=== PATIENT | male | born 1945 | race Caucasian/White ===

== ENCOUNTER 2016-12-08 10:59 | Emergency (ER) | payer OTHER ==
[~2016-12-08] VITALS: Ht 167.6 cm; Wt 128.0 kg
[~2016-12-08 10:59] MED LIST: ASPI81TA28 PO; ATOR-26 PO; GARL1CAP PO; GLUC500C4 PO; LISI-729 PO; OMEG10007 PO; PRLSR20 PO; TPRSR/50 PO
[2016-12-08 11:12] VITALS: Ht 167.6 cm; Wt 128.0 kg
--- NOTE | 2016-12-08 11:40 | EMERGENCY ROOM VISIT NOTE ---
ED Visit Note First contact with patient: 11:15 CHIEF COMPLAINT: right knee pain after fall HISTORY OF PRESENT ILLNESS: This 70-year-old male patient presents to the emergency department 1 day after sustaining an injury to the right knee after falling, while getting into an ambulance yesterday. 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 Patient states the leg rotated externally, and the lateral/anterior aspect of the knee hit the van. Patient denies fall, head injury, loss of consciousness. He was not dizzy or lightheaded at the time of the fall, he states he simply lost his balance. The patient denies any other injuries besides their knee. The patient denies swelling or bruising. There is pain throughout the entire knee. They rate the pain as constant, like it wants to give out on him while he is walking and 8/10. The patient states they are able to walk on it, however this does cause increased pain. No numbness or tingling. No previous injuries to this knee. No ankle, foot or hip pain. Patient does report history of osteoarthritis in the right knee. He states last x-rays were completed approximately 2 years ago he believes. REVIEW OF SYSTEMS: A 6 system review of systems was completed with positives and pertinent negatives listed in the HPI. ALLERGIES: None MEDICATIONS: Omeprazole, garlic oil, glucosamine, fish oil, lisinopril, aspirin , metoprolol, atorvastatin PMH: Acid reflux, arthritis, hypertension, hyperlipidemia SOCIAL HISTORY: He was locally with his family. He denies drug, alcohol, tobacco use. PHYSICAL EXAM: Vital Signs: Reviewed Nurse's notes, vital signs stable. GENERAL : 70-year-old male, no acute distress, but appears in pain, well-developed, well -nourished. MENTAL STATUS: Alert, oriented to person place and time, and cooperative. MUSCULOSKELETAL: The right knee is mildly swollen. There is no ecchymosis. There is no joint effusion present. The patient is tender anteriorly, and laterally. There is no joint line tenderness. The patella does appropriately subluxate. Range of motion is full. Strength of the quads and hamstrings is 5/5. Chrissy's is negative. Albert's and Anterior Drawer tests are negative. There is no pain or laxity with varus and valgus stressing. The foot and toes are warm and well-perfused. Dorsalis pedis pulse 2+. Sensation to pain and light touch is intact. Capillary refill less than 2 seconds. EMERGENCY DEPARTMENT COURSE: I examined the patient. X-rays of the right knee were reviewed by myself and read by radiology and reveal DISCUSSION: Moderate degenerative change all major joint compartments. No acute bony abnormality. Cortical margins are intact. Mild reactive osteophytic change. There is no evidence for soft tissue swelling. IMPRESSION: Moderate degenerative change all major joint compartments. No acute bony abnormality. Discussion with patient and family member regarding negative xray. Pt. was seen and evaluated by Dr. Amezcua. Plan for patient to get a walker for assistance around the house and will follow-up with orthopedics next week. Pt. is in agreement of this plan. The patient was discharged home in good condition. DIAGNOSIS: Right knee contusion DIFFERENTIAL DIAGNOSIS: Anterior cruciate ligament, PCL, LCL, MCL sprain; meniscus injury, patellar fracture, tibial plateau fracture, fibular head fracture, osteoarthritis, others DISCHARGE INSTRUCTIONS: Ice and elevate knee for swelling and pain. Use a cane - minimal weight on foot. Ibuprofen 600 mg and Tylenol 1000 mg every 6 hrs for pain. Follow-up with [facility] for further evaluation and treatment - call for appointment. Problem List Medical Problems: (1) GERD (gastroesophageal reflux disease) Status: Chronic (2) Hypercholesteremia Status: Chronic (3) Hypertension Status: Chronic Current/Historical Medications Scheduled Aspirin (Aspirin Ec), 81 MG PO DAILY Atorvastatin (Lipitor), 80 MG PO DAILY Fish Oil (Donie-3), 1 CAP PO BID Garlic (Garlic Oil 500), 500 MG PO BID Glucosamine Sulfate (Glucosamine), 500 MG PO QAM Lisinopril (Zestril), 5 MG PO DAILY Metoprolol Succinate (Metoprolol Succinate ER), 50 MG PO DAILY Omeprazole (Prilosec), 20 MG PO DAILY Allergies Coded Allergies: No Known Allergies (Unverified , 06/04/14) Vital Signs Date Time Temp Pulse Resp B/P (MAP) Pulse Ox O2 Delivery O2 Flow Rate FiO2 12/08/16 12:58 36.7 57 18 146/111 95 12/08/16 11:12 36.7 59 20 162/90 95 Room Air Departure Information Impression Primary Impression: Contusion of right knee Additional Impression: Osteoarthritis of knee Dispostion Home / Self-Care Condition GOOD Referrals Winston Bee M.D. (PCP) Richard Loyola M.D. Patient Instructions My [facility] Additional Instructions You have been treated in the Emergency Department for Knee Pain. For pain control, you can use the following [id number] medicines (if >12 yo): - Regular strength (325mg/tab) Tylenol (acetaminophen) 2 tabs every 4-6 hours as needed. Do not exceed 12 tablets in a 24 hour period. Avoid taking more than 4 grams (4000 mg) of Tylenol per day. This includes any other sources of acetaminophen you may take on a regular basis. - Regular strength (200 mg/tab) Advil (ibuprofen) 1-2 tabs every 4-6 hours as needed. Do not exceed a dose of 3200 mg per day. If this is a recent injury (<24 hrs), ice can be applied to the area of pain for the first 3 days to help decrease pain and inflammation. Ice massages can be performed by freezing water in a paper cup, peeling back the cup to expose the ice and then massaging over the affected area. You have been provided the number for an Orthopaedic Surgeon. You should call this number as soon as possible to establish a follow-up visit from today's Emergency Department visit. Use a cane as we discussed for help with balance. Return to the Emergency Department if your current symptoms worsen despite treatment course outlined above. Problem Qualifiers Primary Impression: Contusion of right knee Encounter type: initial encounter Qualified Codes: S80.01XA - Contusion of right knee, initial encounter Additional Impression: Osteoarthritis of knee Osteoarthritis type: primary Laterality: right Qualified Codes: M17.11 - Unilateral primary osteoarthritis, right knee
--- NOTE | 2016-12-08 12:01 | DIAGNOSTIC IMAGING REPORT ---
RIGHT KNEE 3 VIEWS CLINICAL HISTORY: right knee pain s/p fall Right trauma. Pain. COMPARISON: None. DISCUSSION: Moderate degenerative change all major joint compartments. No acute bony abnormality. Cortical margins are intact. Mild reactive osteophytic change. There is no evidence for soft tissue swelling. IMPRESSION: Moderate degenerative change all major joint compartments. No acute bony abnormality. Electronically signed by: Jony Henriquez M.D. 12/08/2016 11:59 AM Dictated Date/Time: 12/08/2016 11:59 AM
[2016-12-08 12:58] VITALS: BP 146/111; PULSE 57; TEMP 36.7; O2SAT 95
--- NOTE | 2016-12-08 18:19 | EMERGENCY ROOM VISIT NOTE ---
ED Visit Note First contact with patient: 11:15 I have personally evaluated this patient examined her and reviewed the pertinent labs and data. I have discussed the case with Lisa Camejo, the physician laboratory chemical assistant and agree with the plan. Please refer to the PA note. This patient comes in after bumping his knee. On my exam, it is not red or warm or swollen is full range of motion. He is neurologically and neurovascularly intact. X-rays show degenerative changes he is feeling better when like to go home. He use a cane and pain medications he is to return if any new problems or concerns.
== END 2016-12-08 12:59 | disposition home or self-care (01) ==
LOC: C.EDB 11:00 → C.EDD 12:59
DX: S80.01XA Contusion of right knee, initial encounter (principal); M17.11 Unilateral primary osteoarthritis, right knee; W01.0XXA Fall on same level from slipping, tripping and stumbling without subsequent striking against object, initial encounter; Y92.89 Other specified places as the place of occurrence of the external cause; K21.9 Gastro-esophageal reflux disease without esophagitis; I10 Essential (primary) hypertension; E78.00 Pure hypercholesterolemia, unspecified; E78.5 Hyperlipidemia, unspecified; Z79.82 Long term (current) use of aspirin; Z79.899 Other long term (current) drug therapy

== ENCOUNTER 2017-07-20 08:06 | Emergency (ER) | payer OTHER ==
[~2017-07-20] VITALS: Ht 167.6 cm; Wt 127.0 kg
[2017-07-20 08:09] VITALS: TEMP 36.8; Ht 167.6 cm; Wt 127.0 kg
--- NOTE | 2017-07-20 09:00 | DIAGNOSTIC IMAGING REPORT ---
L FOOT MIN 3 VIEWS ROUTINE CLINICAL HISTORY: Left foot pain COMPARISON: None. DISCUSSION: No acute fractures or dislocations are visualized. There are moderate arthritic changes present the level the first metatarsal phalangeal joint. There is associated soft tissue swelling and subtle calcification within the adjacent soft tissues. Clinical correlation in regards to the possibility of gout is recommended. IMPRESSION: 1. No acute fractures 2. Moderate arthritic changes at the level the first metatarsal phalangeal joint. The soft tissue swelling and adjacent soft tissue calcification, raises the possibility of gout. Electronically signed by: Travon Recio M.D. 07/20/2017 8:59 AM Dictated Date/Time: 07/20/2017 8:57 AM
--- NOTE | 2017-07-20 09:27 | EMERGENCY ROOM VISIT NOTE ---
ED Visit Note First contact with patient: 08:14 CHIEF COMPLAINT: Left foot injury 3 days ago HISTORY OF PRESENT ILLNESS: Patient is a 71-year-old white male who presents to the emergency department for evaluation of left foot pain. He reports that a roughly 20 pound motor fell off of a table, and lives in the top of his left foot. He was wearing a sneaker at the time of the injury. There was no audible snap or crack at that time. Patient complains of pain, swelling and bruising on the dorsomedial aspect of his left foot. He has tried to ice and elevate, and has been rubbing alcohol and BenGay on the area. He did not take any medication for pain. He rates his discomfort and 8/10. REVIEW OF SYSTEMS: Review of systems as per HPI. All other systems reviewed were negative. At least 6 systems reviewed. PMH: Electronic medical records are reviewed and summarized as above/below. See Problem List. SOCIAL HISTORY: Patient lives at home. PHYSICAL EXAM: Vital Signs: Reviewed Nurse's notes. CONSTITUTIONAL: Patient is a pleasant, well-appearing 71-year-old white male who is awake and alert and in no acute distress. MUSCULOSKELETAL: Examination of the left foot note erythema over the first MTP region, with some soft tissue swelling noted into the dorsum of the foot. He is tender over the first metatarsal and the first MTP. Skin is erythematous, but intact. There is no increased warmth or induration. No cellulitic changes. He can wiggle and move his toes normally. EMERGENCY DEPARTMENT COURSE: X-rays of the left foot were obtained and were negative for acute fracture. Findings concerning for a gouty arthropathy of the first MTP were noted. The patient does report a history of gout. He has chronic findings on exam consistent with gout, but his injury is more acute due to the direct trauma. He does not have any evidence for fracture. No dislocation. There is no evidence for cellulitis. He is tolerating his shoe well. Conservative care measures were discussed. He is discharged home in good condition. Medication reconciliation: I attest that I have personally reviewed the patient' s current medication list. Blood pressure screening : Patient was found to have normal blood pressure on screening and does not require follow-up. L FOOT MIN 3 VIEWS ROUTINE CLINICAL HISTORY: Left foot pain COMPARISON: None. DISCUSSION: No acute fractures or dislocations are visualized. There are moderate arthritic changes present the level the first metatarsal phalangeal joint. There is associated soft tissue swelling and subtle calcification within the adjacent soft tissues. Clinical correlation in regards to the possibility of gout is recommended. IMPRESSION: 1. No acute fractures 2. Moderate arthritic changes at the level the first metatarsal phalangeal joint. The soft tissue swelling and adjacent soft tissue calcification, raises the possibility of gout. Problem List Medical Problems: (1) Chest pain Status: Resolved (2) Contusion of right knee Status: Resolved (3) Coronary Atherosclerosis Of [place] Coronary Vessel Status: Chronic (4) GERD (gastroesophageal reflux disease) Status: Chronic (5) Gout Status: Chronic (6) Hypercholesteremia Status: Chronic (7) Hypertension Status: Chronic (8) Lightheadedness Status: Resolved (9) Osteoarthritis of knee Status: Chronic Surgical Problems: (1) H/O heart bypass surgery Status: Resolved Current/Historical Medications Scheduled Aspirin (Aspirin Ec), 81 MG PO DAILY Atorvastatin (Lipitor), 80 MG PO DAILY Fish Oil ([place]-3), 1 CAP PO BID Garlic (Garlic Oil 500), 500 MG PO BID Glucosamine Sulfate (Glucosamine), 500 MG PO QAM Lisinopril (Zestril), 5 MG PO DAILY Metoprolol Succinate (Metoprolol Succinate ER), 50 MG PO DAILY Omeprazole (Prilosec), 20 MG PO DAILY Allergies Coded Allergies: No Known Allergies (Unverified , 07/20/17) Vital Signs Date Time Temp Pulse Resp B/P (MAP) Pulse Ox O2 Delivery O2 Flow Rate FiO2 07/20/17 09:37 56 20 122/71 98 07/20/17 08:09 36.8 67 20 142/73 94 Departure Information Impression Primary Impression: Contusion of left foot Referrals Jose M Nguyen M.D. (PCP) Patient Instructions My [facility] Additional Instructions Ibuprofen(Motrin, Advil) may be used for fever or pain. Use 600mg every six hours as needed. Take with food. Avoid using more than 2400mg in a 24 hour period. Do not use 2400mg per day for more than three consecutive days without physician direction. Prolonged inappropriate use can lead to stomach upset or ulcers. This medication can be taken if you need to drive, work, or perform activities which may be dangerous when taking narcotic pain medication. (AND/OR) Acetaminophen(Tylenol) may be used for fever or pain. Use 1000mg every six hours as needed. Avoid using more than 3000mg in a 24 hour period. This medication can be taken if you need to drive, work, or perform activities which may be dangerous when taking narcotic pain medication. Ice compresses for 20 minutes at a time four times daily for 2-3 days. Rest and elevate your injury. Continue current medications. Return to the ER immediately for any numbness, tingling, severe pain, extreme swelling in the extremity or as needed. Followup with your family doctor or orthopedic surgery if no improvement in 5-7 days.
[2017-07-20 09:37] VITALS: BP 122/71; PULSE 56; O2SAT 98
== END 2017-07-20 09:45 | disposition home or self-care (01) ==
LOC: C.EDB 08:07 → C.EDA 09:45
DX: S90.32XA Contusion of left foot, initial encounter (principal); W22.8XXA Striking against or struck by other objects, initial encounter; Y92.9 Unspecified place or not applicable; I25.10 Atherosclerotic heart disease of native coronary artery without angina pectoris; K21.9 Gastro-esophageal reflux disease without esophagitis; E78.00 Pure hypercholesterolemia, unspecified; I10 Essential (primary) hypertension; M17.9 Osteoarthritis of knee, unspecified; Z79.82 Long term (current) use of aspirin; Z79.899 Other long term (current) drug therapy

== ENCOUNTER 2022-03-03 13:05 | Inpatient (IN) ==
--- NOTE | 2022-03-03 14:27 | Emergency Department Note ---
History of Present Illness General Chief complaint: Illness Stated complaint: REF BY FOR BLOOD CLOT/ NO SYMPTOMS Time Seen by Provider: 03/03/22 14:10 Source: patient History of Present Illness Provider complaint: Blood clot in the lungs Onset (ago): day(s) Location: chest and left Pain Consistency: + constant Current Pain Intensity: 0 Quality: + other (Blood clot in lungs without symptoms.) Relieved By: + none Exacerbated By: + none Associated symptoms: + other (Right calf pain for 3 days); no chest pain, no cough, no fever/chills, no headaches, no nausea/vomiting or no shortness of breath This is a 76-year-old male with a history of abdominal aortic aneurysm sent here by vascular surgery for an abnormal CT performed yesterday at [facility]. The patient had an annual surveillance CT of the abdomen and chest and was noted to have a clot in his lungs on the left side. He was called today and told to go to the emergency department if he develops shortness of breath. He was then called shortly thereafter by his business machine mechanic who told him to go to the ED right away. He has no symptoms consistent with a PE. He states he has no upper back pain, chest pain or shortness of breath. He does note that he has had right calf pain for about 3 days. He describes this as an ache. He thinks that he may just have a varicose vein. He denies any abdominal pain, vomiting or diarrhea. He has no fever, cough or cold symptoms or urinary symptoms. He was told that his aneurysm is getting bigger and that he will require surgery. He denies any abdominal or lower back pain. Home Medications Medication Instructions Recorded Confirmed Type lisinopril 5 mg tablet 5 mg PO QAM 06/25/19 03/03/22 History metoprolol succinate 50 mg 25 mg PO QAM 06/25/19 03/03/22 History tablet,extended release 24 hr omeprazole 20 mg capsule,delayed 20 mg PO QAM 06/25/19 03/03/22 History release rosuvastatin 40 mg tablet 40 mg PO 06/25/19 03/03/22 History garlic 500 mg capsule 500 mg PO BID 12/23/19 03/03/22 History glucosamine sulfate 500 mg capsule 500 mg PO 12/23/19 03/03/22 History omega 7-xst-ezi-fish oil 1,000 mg 1 cap PO BID 12/23/19 03/03/22 History (120 mg-180 mg) capsule (Fish Oil) acetaminophen 500 mg tablet 500 mg PO QID PRN Pain 05/04/21 03/03/22 History aspirin 81 mg chewable tablet 81 mg PO DAILY 05/04/21 03/03/22 History Allergies Allergy/AdvReac Type Severity Reaction Status Date / Time No Known Allergies Allergy Unverified 05/04/21 13:31 Past Med/Surg History Medical History (Updated 03/03/22 @ 17:58 by Spencer Mueller MD) GERD (gastroesophageal reflux disease) Hypercholesteremia Hypertension Osteoarthritis of knee Surgical History H/O heart bypass surgery Social History Smoking Status: Never smoker Tobacco Type: Cigarettes Preferred Language: Serbian marital status: Current Living Situation: Family Feels Safe at Home: Yes Review of Systems See HPI for pertinent positives & negatives. and A total of 10 systems reviewed and were otherwise negative Physical Exam Vital Signs Vital Signs - 24 hr 03/03/22 13:07 03/03/22 17:06 Temperature 36.7 C Temperature Source Temporal Artery Scan Pulse Rate 67 Respiratory Rate 20 18 Respiratory Effort / Characteristics Non-Labored Spontaneous Respiratory Depth Normal Respiratory Pattern Regular Blood Pressure 144/71 H Blood Pressure [Right Arm] 128/72 Blood Pressure Mean 95 Blood Pressure Mean [Right Arm] 90 Blood Pressure Position [Right Arm] Lying Pulse Oximetry 95 97 Oxygen Delivery Method Room Air Room Air Sepsis Recent Fever Within 48 Hours No Sepsis New/Unexplained Change in Mental Status N/A Sepsis Action Taken by Nursing No Action Required Constitutional: Vital signs reviewed. Eyes: Pupils are equal round reactive to light. Conjunctiva are noninjected. ENT: Pharynx is clear without erythema or exudate. Mucous membranes are moist. Neck supple without meningeal signs. Respiratory: Clear to auscultation bilaterally. Breath sounds are equal bilaterally. Cardiovascular: Regular rate and rhythm. No rubs or gallops. GI: Soft, nondistended and nontender. Bowel sounds are present. Musculoskeletal: Dorsalis pedis pulse palpable in both feet. Pedal edema bilaterally. Tenderness to the right calf. No palpable cord. Integumentary: No cyanosis. or jaundice. Neurological: The patient is awake and alert. Very hard of hearing. Psychiatric: Normal affect. Not anxious appearing. Medical Decision Making Differential Diagnosis Pulmonary embolism, DVT, malignancy, aortic aneurysm, right-sided heart strain Medical Records Attestation: I reviewed the patient's medical records. Home Medications Current Medication List: was personally reviewed by me Laboratory Data Attestation: I reviewed the patient's lab results. Result diagrams: 03/03/22 13:45 03/03/22 13:45 Lab Results 03/03/22 03/03/22 03/03/22 Range/Units 13:45 13:45 13:45 WBC (4.8-10.8) K/ul RBC (4.63-6.08) M/uL Hgb (14.0-18.0) g/dl Hct (40.1-51.0) % MCV (80.0-100.0) fL MCH (25.0-34.0) pg MCHC (32.0-36.0) g/dL RDW Std Deviation (36.4-46.3) fL RDW Coeff of Mirela (11.5-14.5) % Plt Count (130-400) K/uL MPV (9.4-12.4) fL Immature Gran % (Auto) % Neut % (Auto) % Lymph % (Auto) % [place] % (Auto) % Eos % (Auto) % Baso % (Auto) % Neut # (Auto) (1.4-6.5) K/uL Lymph # (Auto) (1.2-3.4) K/uL [place] # (Auto) (0.24-0.82) K/uL Eos # (Auto) (0-0.50) K/uL Baso # (Auto) (0-0.2) K/uL Immature Gran # (Auto) (0.00-0.02) K/uL PT 10.5 (9.0-12.0) Seconds INR 1.0 (0.9-1.1) APTT 24.2 (21.0-31.0) Seconds PTT Ratio 0.9 D-Dimer 2240 H* (0-500) ug/L FEU Sodium 138 (136-145) mmol/L Potassium 4.4 (3.5-5.1) mmol/L Chloride 104 (98-107) mmol/L Carbon Dioxide 28 (21-32) mmol/L Anion Gap 6 (3-11) BUN 24 H (6-23) mg/dl Creatinine 1.49 H (0.6-1.4) mg/dl Est Cr Clr Drug Dosing 52.6 ml/min Est GFR ( Amer) 51.7 ml/min Est GFR (Non-Af Amer) 44.6 ml/min BUN/Creatinine Ratio 16.1 (10-20) Glucose 106 H (70-99(Fasting)) mg/dl Calcium 8.8 (8.5-10.1) mg/dl Total Bilirubin 0.5 (0.2-1.0) mg/dl AST 29 (13-39) U/L ALT 20 (7-52) U/L Alkaline Phosphatase 48 (34-104) U/L Troponin I High Sens 6.8 (0-20) pg/ml Total Protein 6.4 (6.0-8.3) gm/dl Albumin 3.9 (3.4-5.0) gm/dl Globulin 2.5 (2.5-4.0) gm/dl Albumin/Globulin Ratio 1.6 (0.9-2) 03/03/22 Range/Units 13:45 WBC 6.85 (4.8-10.8) K/ul RBC 4.08 L (4.63-6.08) M/uL Hgb 13.3 L (14.0-18.0) g/dl Hct 39.2 L (40.1-51.0) % MCV 96.1 (80.0-100.0) fL MCH 32.6 (25.0-34.0) pg MCHC 33.9 (32.0-36.0) g/dL RDW Std Deviation 45.5 (36.4-46.3) fL RDW Coeff of Mirela 12.9 (11.5-14.5) % Plt Count 144 (130-400) K/uL MPV 9.5 (9.4-12.4) fL Immature Gran % (Auto) 0.1 % Neut % (Auto) 67.6 % Lymph % (Auto) 19.9 % [place] % (Auto) 8.3 % Eos % (Auto) 3.2 % Baso % (Auto) 0.9 % Neut # (Auto) 4.63 (1.4-6.5) K/uL Lymph # (Auto) 1.36 (1.2-3.4) K/uL [place] # (Auto) 0.57 (0.24-0.82) K/uL Eos # (Auto) 0.22 (0-0.50) K/uL Baso # (Auto) 0.06 (0-0.2) K/uL Immature Gran # (Auto) 0.01 (0.00-0.02) K/uL PT (9.0-12.0) Seconds INR (0.9-1.1) APTT (21.0-31.0) Seconds PTT Ratio D-Dimer (0-500) ug/L FEU Sodium (136-145) mmol/L Potassium (3.5-5.1) mmol/L Chloride (98-107) mmol/L Carbon Dioxide (21-32) mmol/L Anion Gap (3-11) BUN (6-23) mg/dl Creatinine (0.6-1.4) mg/dl Est Cr Clr Drug Dosing ml/min Est GFR ( Amer) ml/min Est GFR (Non-Af Amer) ml/min BUN/Creatinine Ratio (10-20) Glucose (70-99(Fasting)) mg/dl Calcium (8.5-10.1) mg/dl Total Bilirubin (0.2-1.0) mg/dl AST (13-39) U/L ALT (7-52) U/L Alkaline Phosphatase (34-104) U/L Troponin I High Sens (0-20) pg/ml Total Protein (6.0-8.3) gm/dl Albumin (3.4-5.0) gm/dl Globulin (2.5-4.0) gm/dl Albumin/Globulin Ratio (0.9-2) Imaging Data Radiologist's Impression: Venous Doppler Study 03/03/22 14:21 BILATERAL LOWER EXTREMITY VENOUS DOPPLER HISTORY: PE on CT eval with pain in leg eval for dvt COMPARISON STUDY: None. FINDINGS: There is normal compressibility, flow, and augmentation within the bilateral lower extremity deep venous systems. IMPRESSION: No DVT within the right or left lower extremity. ACT 112: Negative or not required by law. Electronically signed by: Gabe Olsen M.D. 03/03/2022 4:24 PM ECG Data Attestation: I personally reviewed and interpreted this ECG as follows: Indication: + other (Pulmonary emboli on CAT scan eval for right heart strain) Rate (beats per minute): 67 Rhythm: + normal sinus ECG Intervals/blocks: + Right Bundle branch block ECG Findings: no PVCs Comparison ECG Date: from (May 04, 2021) Change: the following changes noted (Right bundle branch block today. P reviously was incomplete right bundle branch block) MDM Narrative I did evaluate the patient as noted above. He is sent here by his vascular surgeon for findings on CT performed yesterday for surveillance of his abdominal aortic aneurysm. He was found to have a clot in the left upper lobe of his lung as well as a possible clot on the right side. I did obtain the report for the CT which demonstrated a nonocclusive filling defect in the left upper lobe segme ntal arteries and questionable nonocclusive filling defect in the right upper lobe subsegmental pulmonary arteries. The radiologist notes that these are central within the vessel and suggestive of acute emboli. I did speak to the vascular surgery, , who stated that there was no contraindication from his standpoint for anticoagulation for the pulmonary emboli. His aneurysm did increase in size but there is no plan for immediate surgery. The patient states that he has no symptoms. He has no shortness of breath, back pain, chest pain or abdominal pain. He did state when queried that he had pain in his right calf for the past 3 days. IV access was established. I did place an order for continuous cardiac monitoring. The monitor showed normal sinus rhythm at a rate of 68 bpm. I did order and personally review the patient's 12-lead EKG as described above. He has no acute ischemic changes. He does have a right bundle branch block. I did order and review the patient's blood work as noted in the electronic medical record. CBC demonstrates a hemoglobin of 13.3. His white count is not elevated. Platelet count is 144. D-dimer is elevated at 2240. Chemistries demonstrate an elevated BUN and creatinine at 24 and 1.49 respectively. Troponin is negative. I did order a Doppler ultrasound of the lower extremities bilaterally. I did review the images myself as well as the radiology report as described above. There is no evidence of DVT. I did discuss the test results with the patient and his daughter. He was agreeable to hospitalization for anticoagulation and further care. I did discuss the case with the hospitalist and rn field case manager. Impression & Plan Pulmonary embolism, bilateral, Right bundle branch block, Chronic kidney disease, Abdominal aortic aneurysm Discharge Plan Visit Data Chief Complaint: Illness Stated Complaint: REF BY DR FOR BLOOD CLOT/ NO SYMPTOMS ED Provider: Spencer Mueller Discharge Problem: Pulmonary embolism, bilateral, Right bundle branch block, Chronic kidney disease, Abdominal aortic aneurysm Patient Disposition: Being Evaluated by Hospitalist Forms Stand Alone Forms: My [facility] Prescriptions Prescriptions: No Action garlic 500 mg Capsule 500 mg PO BID glucosamine sulfate 500 mg Capsule 500 mg PO HS omega 7-lqq-rbr-fish oil [Fish Oil] 1,000 mg (120 mg-180 mg) Capsule 1 cap PO BID metoprolol succinate 50 mg tablet extended release 24 hr 25 mg PO QAM omeprazole 20 mg capsule,delayed release(DR/EC) 20 mg PO QAM lisinopril 5 mg tablet 5 mg PO QAM rosuvastatin 40 mg tablet 40 mg PO HS acetaminophen 500 mg Tablet 500 mg PO QID PRN (Reason: Pain) aspirin 81 mg Tablet,Chewable 81 mg PO DAILY Referrals Referrals: Hipolito Coates MD [Primary Care Provider] -
[2022-03-03 14:42] LABS: Basophils # (auto) 0.06 K/uL (0-0.2); Basophils % (auto) 0.9 %; Eosinophils # (auto) 0.22 K/uL (0-0.50); Eosinophils % (auto) 3.2 %; Hematocrit (blood only) 39.2 % (40.1-51.0); Hemoglobin 13.3 g/dl (14.0-18.0); Immature Granulocytes # (auto) 0.01 K/uL (0.00-0.02); Immature Granulocytes % (auto) 0.1 %; Lymphocytes # (auto) 1.36 K/uL (1.2-3.4); Lymphocytes % (auto) 19.9 %; Mean Corpuscular Hemoglobin 32.6 pg (25.0-34.0); Mean Corpuscular Hgb Conc 33.9 g/dL (32.0-36.0); Mean Corpuscular Volume 96.1 fL (80.0-100.0); Mean Platelet Volume 9.5 fL (9.4-12.4); Monocytes # (auto) 0.57 K/uL (0.24-0.82); Monocytes % (auto) 8.3 %; Neutrophils # (auto) 4.63 K/uL (1.4-6.5); Neutrophils % (auto) 67.6 %; Platelet Count 144 K/uL (130-400); RDW Coefficient of Variation 12.9 % (11.5-14.5); RDW Standard Deviation 45.5 fL (36.4-46.3); Red Blood Count 4.08 M/uL (4.63-6.08); White Blood Count 6.85 K/ul (4.8-10.8)
[2022-03-03 15:01] LABS: Troponin I High Sensitivity 6.8 pg/ml (0-20)
[2022-03-03 15:02] LABS: Partial Thromboplastin Ratio 0.9; Partial Thromboplastin Time 24.2 Seconds (21.0-31.0); Prothrombin Time 10.5 Seconds (9.0-12.0)
[2022-03-03 15:20] LABS: Albumin Globulin Ratio 1.6 (0.9-2); Albumin Level 3.9 gm/dl (3.4-5.0); BUN Creatinine Ratio 16.1 (10-20); Bilirubin,Total 0.5 mg/dl (0.2-1.0); Calcium 8.8 mg/dl (8.5-10.1); Creatinine Clr Calc Pharmacy 52.6 ml/min; Est GFR (African American) 51.7 ml/min; Est GFR (Non-African American) 44.6 ml/min; Globulin 2.5 gm/dl (2.5-4.0); Potassium 4.4 mmol/L (3.5-5.1); Total Protein 6.4 gm/dl (6.0-8.3)
[2022-03-03 15:28] LABS: D Dimer 2240 ug/L FEU (0-500)
--- NOTE | 2022-03-03 16:26 | Ultrasound Report ---
BILATERAL LOWER EXTREMITY VENOUS DOPPLER HISTORY: PE on CT eval with pain in leg eval for dvt COMPARISON STUDY: None. FINDINGS: There is normal compressibility, flow, and augmentation within the bilateral lower extremit y deep venous systems. IMPRESSION: No DVT within the right or left lower extremity. ACT 112: Negative or not required by law. Electronically signed by: Gabe Olsen M.D. 03/03/2022 4:24 PM
--- NOTE | 2022-03-03 17:01 | Electrocardiogram Report ---
Test Reason : Blood Pressure : / mmHG Vent. Rate : 067 BPM Atrial Rate : 067 BPM P-R Int : 206 ms QRS Dur : 134 ms QT Int : 448 ms P-R-T Axes : 056 -10 049 degrees QTc Int : 473 ms Normal sinus rhythm Right bundle branch block Abnormal ECG When compared with ECG of 04-MAY-2021 12:44, No significant change was found Confirmed by Rocael Mccann ([id number]) on 03/03/2022 5:01:03 PM Referred By: REFERRED SELF Confirmed By:Sandip Mccann
--- NOTE | 2022-03-03 17:14 | History & Physical Report ---
Date of Service March 03, 2022 Assessment & Plan (1) Pulmonary embolism, bilateral: Plan: Patient is 76 y/o M with PMH HTN, dyslipidemia, CKD III, CAD s/p CABG, RBBB, left anterior fascicular block, GERD, obesity, AAA presented to ER for abnormal outpatient CT scan for AAA monitoring. Denies CP, SOB, cough, hemoptysis. Denies recent surgery or immobilization. Outpatient CT abd/pelvis for recon endovasc AAA 1. Progressively enlarging abdominal aortic aneurysm starting from the superior mesenteric artery and extending to the iliac bifurcation. Aneurysm measures up to 66mm (previously 56mm on 12/22/2020). 2. Acute nonocclusive left upper lobe segmental pulmonary embolism and questionable right upper lobe subsegmental pulmonary embolism In ER no tachycardia or hypoxia. D-Dimer: 2240 Venous Doppler Negative for DVT Patient follows with [facility] vascular surgery. ER physician spoke to [facility] vascular and report no contraindication for anticoagulation Start IV Heparin Echo Monitor on tele (2) Abdominal aortic aneurysm: Plan: Known AAA. Aneurysm measures up to 66mm (previously 56mm on 12/22/2020) on CT scan from 03/02/22 Following with [facility] vascular surgery (3) CAD (coronary artery disease): Plan: S/P CABG Denies CP, SOB No acute ST changes on EKG Continue aspirin, metoprolol, rosuvastatin (4) Hypertension: Plan: Continue lisinopril, metoprolol (5) Hypercholesteremia: Plan: Continue rosuvastatin (6) Right bundle branch block: (7) Left anterior fascicular block: Plan: Chronic (8) CKD (chronic kidney disease), stage III: Plan: Cr: 1.5. Baseline: 1.5 Monitor renal functions, avoid nephrotoxic agents when possible (9) GERD (gastroesophageal reflux disease): Plan: Continue PPI (10) Obesity: Plan: BMI: 43 Lifestyle modifications recommended DVT Prophylaxis PE on arrival. On Heparin IV Full Code as per discussion with pt Follows with Dr Coates for routine care Pt was seen and care coordinated with Dr Arzola. See addendum History of Present Illness Chief Complaint: Abnormal CT scan Primary Care Provider: Hipolito Coates MD Patient is 76 y/o M with PMH HTN, dyslipidemia, CKD III, CAD s/p CABG, RBBB, left anterior fascicular block, GERD, obesity, AAA presented to ER for abnormal outpatient CT scan. Patient had surveillance CT scan secondary to AAA on 03/02/2022. He was notified today of finding of PE. Patient denies any chest pain, shortness of breath. Denies fever/chills, diaphoresis, weight loss, night sweats, N/V/D/C, OSEGUERA, dizziness, syncope, vision changes, neck pain, CP, SOB, orthopnea, palpitations, cough, sore throat, choking, otalgia, rhinorrhea, abdominal pain, paresthesias, weakness, extremity weakness, extremity edema, extremity erythema, rashes, urinary symptoms. Denies recent surgery, immob ilization. Denies FH DVT/PE, known clotting disorder. Outpatient CT abd/pelvis, recon endovasc 1. Progressively enlarging abdominal aortic aneurysm starting from the superior mesenteric artery and extending to the iliac bifurcation. Aneurysm measures up to 66mm (previously 56mm on 12/22/2020). 2. Acute nonocclusive left upper lobe segmental pulmonary embolism and questionable right upper lobe subsegmental pulmonary embolism Allergies Allergy/AdvReac Type Severity Reaction Status Date / Time No Known Allergies Allergy Unverified 05/04/21 13:31 Home Medications Medication Instructions Recorded Confirmed Type lisinopril 5 mg tablet 5 mg PO QAM 06/25/19 03/03/22 History metoprolol succinate 50 mg 25 mg PO QAM 06/25/19 03/03/22 History tablet,extended release 24 hr omeprazole 20 mg capsule,delayed 20 mg PO QAM 06/25/19 03/03/22 History release rosuvastatin 40 mg tablet 40 mg PO HS 06/25/19 03/03/22 History garlic 500 mg capsule 500 mg PO BID 12/23/19 03/03/22 History glucosamine sulfate 500 mg capsule 500 mg PO HS 12/23/19 03/03/22 History omega 1-wgo-zjk-fish oil 1,000 mg 1 cap PO BID 12/23/19 03/03/22 History (120 mg-180 mg) capsule (Fish Oil) acetaminophen 500 mg tablet 500 mg PO QID PRN Pain 05/04/21 03/03/22 History aspirin 81 mg chewable tablet 81 mg PO DAILY 05/04/21 03/03/22 History Past Med/Surg History Medical History (Updated 03/03/22 @ 19:29 by Bren Spaulding PA-C) Abdominal aortic aneurysm CAD (coronary artery disease) CKD (chronic kidney disease), stage III GERD (gastroesophageal reflux disease) Hypercholesteremia Hypertension Left anterior fascicular block Obesity Osteoarthritis of knee Right bundle branch block Surgical History (Updated 03/03/22 @ 19:29 by Bren Spaulding PA-C) H/O heart bypass surgery H/O umbilical hernia repair Family History (Updated 03/03/22 @ 19:30 by Bren Spaulding PA-C) Other Cancer Diabetes Heart disease Social History (Updated 03/03/22 @ 19:30 by Bren Spaulding PA-C) Smoking Status: Never smoker Tobacco Type: Cigarettes Hx Alcohol Use: No Hx Substance Use: No Preferred Language: Pashto marital status: Current Living Situation: Family Feels Safe at Home: Yes Review of Systems Review of Systems: All systems reviewed & are unremarkable except as noted in HPI & below Physical Exam Physical Exam: General: no distress, obese Head: normocephalic, atraumatic Eyes: PERRL, EOM's intact, conjunctiva non-injected, anicteric ENT: Hard of hearing, normal inspection external ears, nose, mucous membranes moist Neck: supple, trachea midline Lungs: clear, no respiratory distress, no wheezing/rhonchi/rales CV: RRR, no murmur, no pretibial edema Abd: protuberant, normal BS, soft, non-tender Ext: no cyanosis, no erythema, no calf tenderness Neuro: A&O x 3, no focal deficits noted, normal affect Skin: warm, dry Results & Data Results & Data ([facility]) Vital Signs (Past 12 Hours) Vital Signs Temp Pulse Resp BP Pulse Ox O2 Del Method 03/03/22 13:07 36.7 C 67 20 144/71 H 95 Room Air Laboratory Results Short CBC 03/03/22 Range/Units 13:45 WBC 6.85 (4.8-10.8) K/ul Hgb 13.3 L (14.0-18.0) g/dl Hct 39.2 L (40.1-51.0) % Plt Count 144 (130-400) K/uL BMP 03/03/22 13:45 Sodium 138 Potassium 4.4 Chloride 104 Carbon Dioxide 28 BUN 24 H Creatinine 1.49 H Glucose 106 H Calcium 8.8 Liver Function 03/03/22 Range/Units 13:45 Total Bilirubin 0.5 (0.2-1.0) mg/dl AST 29 (13-39) U/L ALT 20 (7-52) U/L Alkaline Phosphatase 48 (34-104) U/L Albumin 3.9 (3.4-5.0) gm/dl Diagnostic Findings Venous Doppler Study 03/03/22 14:21 BILATERAL LOWER EXTREMITY VENOUS DOPPLER HISTORY: PE on CT eval with pain in leg eval for dvt COMPARISON STUDY: None. FINDINGS: There is normal compressibility, flow, and augmentation within the bilateral lower extremity deep venous systems. IMPRESSION: No DVT within the right or left lower extremity. ACT 112: Negative or not required by law. Electronically signed by: Gabe Olsen M.D. 03/03/2022 4:24 PM Supervising Physician Co-Signing Physician Notes 76-year-old male with PMH of HLD, HTN, CKD stage III, CAD status post CABG, RBBB, left anterior fascicular block, GERD, obesity, AAA presented to our ED 03/[address] scan for routine AAA monitoring. Patient was found to have acute nonocclusive left upper lobe segmental PE and questionable right upper lobe subsegmental PE. During exam, patient was hemodynamically stable and without any chest pain or any acute symptoms. Admitting labs reviewed, D-dimer was elevated, troponin WNL, admitting EKG without any acute ST or T changes. Venous Doppler negative for DVT BLE. Echo, IV heparin drip. Patient will need transition to p.o. upon discharge. Upon examination: GENERAL: Alert and oriented x3. NAD, on RA. Class III obese. KETCHIKAN. HEENT: No pallor, no icterus. Pupils equal, round and reactive to light. Oral mucosa moist. NECK: No JVD, no neck masses. HEART: S1 and S2 heard. Regular rate and rhythm. No murmur, no gallop. RESPIRATORY SYSTEM: Normal AP diameter. No accessory muscle use. No wheezing, no crackles. ABDOMEN: Soft, bowel sounds present, nontender, no distention. CENTRAL NERVOUS SYSTEM: No facial droop. Speech is clear. Obeys simple commands. Moves extremities. EXTREMITIES: No edema, no erythema seen. I have seen and examined the patient and have discussed the case with the provider above. I agree with the assessment and plan as stated. (1) Abdominal aortic aneurysm Presence of rupture: without rupture Qualified Code(s): I71.4 - Abdominal aortic aneurysm, without rupture
[2022-03-03] MEDS ORDERED: HEPARIN SOD (PORCINE) 1000 UNIT/ML IV ONE ×2 (18:27→18:37)
[2022-03-03] MEDS ORDERED: Heparin IV Adult Wt-Based Standard WITH Bolus Protocol IV SCH (18:30)
[2022-03-03] MEDS: HEPARIN SODIUM/DEXTROSE 25,000 UNITS/500 ML BAG IV SCH (19:28)
[2022-03-03] MEDS ORDERED: ACETAMINOPHEN 325 MG TAB PO PRN (21:13)
[2022-03-03] MEDS ORDERED: POLYETHYLENE (MIRALAX) 17 GM PACK PO PRN (21:13)
[2022-03-04] MEDS: ROSUVASTATIN CALCIUM 20 MG TAB PO SCH ×2 (00:30→21:25)
[2022-03-04 02:11] LABS: Partial Thromboplastin Ratio 2.3
[2022-03-04 02:17] LABS: Partial Thromboplastin Time 64.1 Seconds (21.0-31.0)
[2022-03-04 07:40] LABS: Hematocrit (blood only) 40.5 % (40.1-51.0); Hemoglobin 13.8 g/dl (14.0-18.0); Mean Corpuscular Hemoglobin 32.7 pg (25.0-34.0); Mean Corpuscular Hgb Conc 34.1 g/dL (32.0-36.0); Mean Platelet Volume 9.5 fL (9.4-12.4); Platelet Count 136 K/uL (130-400); RDW Coefficient of Variation 12.8 % (11.5-14.5); RDW Standard Deviation 45.2 fL (36.4-46.3); Red Blood Count 4.22 M/uL (4.63-6.08); White Blood Count 5.89 K/ul (4.8-10.8)
[2022-03-04] MEDS: METOPROLOL SUCC 25MG EXT REL TAB PO SCH (07:48)
[2022-03-04] MEDS: ASPIRIN 81 MG CHEW PO SCH (07:48)
[2022-03-04] MEDS: PANTOprazole 40 MG TAB PO SCH (07:48)
[2022-03-04] MEDS: lisinopril 5 MG TAB PO SCH (07:48)
[2022-03-04 08:09] LABS: BUN Creatinine Ratio 15.3 (10-20); Calcium 8.8 mg/dl (8.5-10.1); Creatinine Clr Calc Pharmacy 59.6 ml/min; Est GFR (African American) 60.4 ml/min; Est GFR (Non-African American) 52.1 ml/min; Potassium 4.5 mmol/L (3.5-5.1)
[2022-03-04 08:28] LABS: Partial Thromboplastin Ratio 2.7
[2022-03-04 08:58] LABS: Partial Thromboplastin Time 74.6 Seconds (21.0-31.0)
--- NOTE | 2022-03-04 10:58 | Hospitalist Progress Note ---
Date of Service March 04, 2022 Assessment & Plan (1) Pulmonary embolism, bilateral: Plan: 76 y/o M with PMH HTN, dyslipidemia, CKD III, CAD s/p CABG, RBBB, left anterior fascicular block, GERD, obesity, AAA presented to ER for abnormal outpatient CT scan for AAA monitoring. Denies CP, SOB, cough, hemoptysis. Denies recent surgery or immobilization. Outpatient CT abd/pelvis for recon endovasc AAA 1. Progressively enlarging abdominal aortic aneurysm starting from the superior mesenteric artery and extending to the iliac bifurcation. Aneurysm measures up to 66mm (previously 56mm on 12/22/2020). 2. Acute nonocclusive left upper lobe segmental pulmonary embolism and questionable right upper lobe subsegmental pulmonary embolism In ER no tachycardia or hypoxia. D-Dimer: 2240 Venous Doppler Negative for DVT Patient follows with [facility] vascular surgery. ER physician spoke to [facility] vascular and report no contraindication for anticoagulation Continue IV heparin TTE reviewed Patient deferred any management/decisions to daughter Discussed with daughter Renata. We discussed findings and need for anticoagulatiion We discussed anticoagulation options- Warfarin vs NOAC Provided education regarding anticoagulation, monitoring, side effects I also contacted patient's pharm and got the cost of different anticoagulation options for patient Daughter reported that though copay for eliquis was higher than warfarin + lovenox bridge, she will prefer changing to eliquis tomorrow. (2) Abdominal aortic aneurysm: Plan: Known AAA. Aneurysm measures up to 66mm (previously 56mm on 12/22/2020) on CT scan from 03/02/22 Following with [facility] vascular surgery (3) CAD (coronary artery disease): Plan: S/P CABG Denies CP, SOB No acute ST changes on EKG Continue aspirin, metoprolol, rosuvastatin (4) Hypertension: Plan: Continue lisinopril, metoprolol (5) Hypercholesteremia: Plan: Continue rosuvastatin (6) Right bundle branch block: (7) Left anterior fascicular block: Plan: Chronic (8) CKD (chronic kidney disease), stage III: Plan: Cr: 1.3. At baseline Monitor renal functions, avoid nephrotoxic agents when possible (9) GERD (gastroesophageal reflux disease): Plan: Continue PPI (10) Obesity: Plan: BMI: 43 Lifestyle modifications recommended Plan to dc in AM Admission and Anticipated Discharge Date Admission Date: March 03, 2022 Subjective Patient seen and examined Except for hearing deficits, patient denied all symptoms on review of systems. Physical Exam Constitutional: + well hydrated and + obese; no acute distress Eyes: PERRL, conjunctivae normal, anicteric sclerae ENMT: external ear and nose normal, oropharynx normal +severe hearing deficits Respiratory: normal respiratory effort, lungs clear to auscultation Cardiovascular: Rate/Rhythm: regular rate and regular rhythm S1 S2 Gastrointestinal (Abdomen): normal bowel sounds, soft, nontender, no hepatosplenomegaly Musculoskeletal: no cyanosis or clubbing, extremities motor strength 5/5 Neurologic: PERRL, EOMI, accommodation nl, no face palsy, no dysarthria Results & Data Results & Data ([facility]) Vital Signs (Past 12 Hours) Vital Signs Temp Pulse Pulse Resp BP Pulse Ox O2 Del Method 03/04/22 07:40 36.6 C 63 18 144/82 H 94 Room Air 03/04/22 03:42 36.5 C 64 18 121/78 93 Room Air 03/04/22 00:39 36.5 C 57 L 18 152/79 H 96 Room Air 03/03/22 23:30 36.5 C 57 L 18 152/79 H 96 Room Air 03/03/22 23:44 66 Laboratory Results Abnormal lab results 03/03/22 03/03/22 03/04/22 Range/Units 13:45 13:45 01:21 RBC (4.63-6.08) M/uL Hgb (14.0-18.0) g/dl APTT 64.1 H* (21.0-31.0) Seconds D-Dimer 2240 H* (0-500) ug/L FEU BUN 24 H (6-23) mg/dl Creatinine 1.49 H (0.6-1.4) mg/dl Glucose 106 H (70-99(Fasting)) mg/dl 03/04/22 03/04/22 Range/Units 06:28 06:33 RBC 4.22 L (4.63-6.08) M/uL Hgb 13.8 L (14.0-18.0) g/dl APTT 74.6 H* (21.0-31.0) Seconds D-Dimer (0-500) ug/L FEU BUN (6-23) mg/dl Creatinine (0.6-1.4) mg/dl Glucose (70-99(Fasting)) mg/dl (1) Abdominal aortic aneurysm Presence of rupture: without rupture Qualified Code(s): I71.4 - Abdominal aortic aneurysm, without rupture
[2022-03-04] MEDS: HEPARIN SODIUM/DEXTROSE 25,000 UNITS/500 ML BAG IV SCH (11:19)
[2022-03-04 16:37] LABS: Partial Thromboplastin Time 56.3 Seconds (21.0-31.0)
[2022-03-05] MEDS: HEPARIN SODIUM/DEXTROSE 25,000 UNITS/500 ML BAG IV SCH (05:00)
[2022-03-05 08:18] LABS: BUN Creatinine Ratio 14.3 (10-20); Calcium 9.1 mg/dl (8.5-10.1); Creatinine Clr Calc Pharmacy 52.8 ml/min; Est GFR (African American) 52.6 ml/min; Est GFR (Non-African American) 45.4 ml/min; Potassium 5.1 mmol/L (3.5-5.1)
[2022-03-05 08:23] LABS: Partial Thromboplastin Ratio 2.6
[2022-03-05 08:24] LABS: Hematocrit (blood only) 40.4 % (40.1-51.0); Hemoglobin 13.6 g/dl (14.0-18.0); Mean Corpuscular Hemoglobin 32.6 pg (25.0-34.0); Mean Corpuscular Hgb Conc 33.7 g/dL (32.0-36.0); Mean Corpuscular Volume 96.9 fL (80.0-100.0); Mean Platelet Volume 9.4 fL (9.4-12.4); Platelet Count 147 K/uL (130-400); RDW Coefficient of Variation 12.9 % (11.5-14.5); Red Blood Count 4.17 M/uL (4.63-6.08); White Blood Count 5.79 K/ul (4.8-10.8)
[2022-03-05 08:26] LABS: Partial Thromboplastin Time 71.6 Seconds (21.0-31.0)
[2022-03-05] MEDS ORDERED: APIXABAN 5 MG TABLET PO SCH (09:00)
[2022-03-05] MEDS: PANTOprazole 40 MG TAB PO SCH (09:07)
[2022-03-05] MEDS: METOPROLOL SUCC 25MG EXT REL TAB PO SCH (09:07)
[2022-03-05] MEDS: lisinopril 5 MG TAB PO SCH (09:07)
[2022-03-05] MEDS: ASPIRIN 81 MG CHEW PO SCH (09:08)
--- NOTE | 2022-03-05 10:16 | Discharge Summary ---
Date of Service March 05, 2022 Admission HPI Per Admitting Provider Patient is 76 y/o M with PMH HTN, dyslipidemia, CKD III, CAD s/p CABG, RBBB, left anterior fascicular block, GERD, obesity, AAA presented to ER for abnormal outpatient CT scan. Patient had surveillance CT scan secondary to AAA on 03/02/2022. He was notified today of finding of PE. Patient denies any chest pain, shortness of breath. Denies fever/chills, diaphoresis, weight loss, night sweats, N/V/D/C, OSEGUERA, dizziness, syncope, vision changes, neck pain, CP, SOB, orthopnea, palpitations, cough, sore throat, choking, otalgia, rhinorrhea, abdominal pain, paresthesias, weakness, extremity weakness, extremity edema, extremity erythema, rashes, urinary symptoms. Denies recent surgery, immobilization. Denies FH DVT/PE, known clotting disorder. Outpatient CT abd/pelvis, recon endovasc 1. Progressively enlarging abdominal aortic aneurysm starting from the superior mesenteric artery and extending to the iliac bifurcation. Aneurysm measures up to 66mm (previously 56mm on 12/22/2020). 2. Acute nonocclusive left upper lobe segmental pulmonary embolism and questionable right upper lobe subsegmental pulmonary embolism Admission Exam Per Admitting Provider General: no distress, obese Head: normocephalic, atraumatic Eyes: PERRL, EOM's intact, conjunctiva non-injected, anicteric ENT: Hard of hearing, normal inspection external ears, nose, mucous membranes moist Neck: supple, trachea midline Lungs: clear, no respiratory distress, no wheezing/rhonchi/rales CV: RRR, no murmur, no pretibial edema Abd: protuberant, normal BS, soft, non-tender Ext: no cyanosis, no erythema, no calf tenderness Neuro: A&O x 3, no focal deficits noted, normal affect Skin: warm, dry Principal Diagnosis Acute pulmonary embolism Abdominal aortic aneurysm Discharge Exam Constitutional + well hydrated and + obese; no acute distress Eyes PERRL, conjunctivae normal, anicteric sclerae ENMT external ear and nose normal, oropharynx normal +hearing deficits Respiratory normal respiratory effort, lungs clear to auscultation Cardiovascular Rate/Rhythm: regular rate and regular rhythm S1 S2 Gastrointestinal (Abdomen) normal bowel sounds, soft, nontender, no hepatosplenomegaly Musculoskeletal no cyanosis or clubbing, extremities motor strength 5/5 Neurologic PERRL, EOMI, accommodation nl, no face palsy, no dysarthria Discharge Data Allergies Allergy/AdvReac Type Severity Reaction Status Date / Time No Known Allergies Allergy Unverified 05/04/21 13:31 Consultations 03/03/22 17:07 ED Decision to Admit Stat Ordered Studies 03/03/22 14:21 US venous doppler LE BI Stat There is normal compressibility, flow, and augmentation within the bilateral lower extremity deep venous systems. IMPRESSION: No DVT within the right or left lower extremity. Hospital Course (1) Pulmonary embolism, bilateral: 76 y/o M with PMH HTN, dyslipidemia, CKD III, CAD s/p CABG, RBBB, left anterior fascicular block, GERD, obesity, AAA presented to ER for abnormal outpatient CT scan for AAA monitoring. Denies CP, SOB, cough, hemoptysis. Denies recent surgery or immobilization. Outpatient CT abd/pelvis for recon endovasc AAA 1. Progressively enlarging abdominal aortic aneurysm starting from the superior mesenteric artery and extending to the iliac bifurcation. Aneurysm measures up to 66mm (previously 56mm on 12/22/2020). 2. Acute nonocclusive left upper lobe segmental pulmonary embolism and questionable right upper lobe subsegmental pulmonary embolism In ER no tachycardia or hypoxia. D-Dimer: 2240 Venous Doppler Negative for DVT Patient follows with [facility] vascular surgery. ER physician spoke to [facility] vascular and report no contraindication for anticoagulation Continue IV heparin TTE reviewed Patient deferred any management/decisions to daughter Discussed with daughter Renata. We discussed findings and need for anticoagulatiion We discussed anticoagulation options- Warfarin vs NOAC Provided education regarding anticoagulation, monitoring, side effects I also contacted patient's pharm and got the cost of different anticoagulation options for patient Daughter reported that though copay for eliquis was higher than warfarin + lovenox bridge, she will prefer changing to eliquis Patient started on eliquis 10mg bid x 7 days and then 5mg bid afterwards. Will need anticoagulation for at least 3-6months Daughter reported patient already has appointment with Vascular surgeon within the coming week (2) Abdominal aortic aneurysm: Following with [facility] vascular surgery (3) CAD (coronary artery disease): S/P CABG Continue aspirin, metoprolol, rosuvastatin (4) Hypertension: Continue lisinopril, metoprolol (5) Hypercholesteremia: Continue rosuvastatin (6) Right bundle branch block: (7) Left anterior fascicular block: (8) CKD (chronic kidney disease), stage III: (9) GERD (gastroesophageal reflux disease): (10) Obesity: BMI: 43 Lifestyle modifications recommended Total Time Total Time Spent Total Time Spent (In Minutes): 45 Total Time Includes: Examination of the Patient, Discharge Planning and Medication Reconciliation Discharge Plan Discharge Items Patient Disposition: Home - Self-Care Reason For Visit: REF BY FOR BLOOD CLOT/ NO SYMPTOMS Discharge Diagnosis: Acute pulmonary embolism Activity: Resume your previous activity Non-emergency contact: Primary Care Provider Call non-emergency contact if: you have any medication questions Follow-up/Referrals: Hipolito Coates MD [Primary Care Provider] - Diet: Heart Healthy Addtl Attending Provider Instructions: Philippe. You were sent to the hospital after outpatient CT scan revealed blood clots in your lungs. You were started on blood thinners. You are being discharged on a blood thinner called eliquis or apixaban. Please take 10mg twice a day until 03/11/22, then 5mg twice a day from 03/12/22. You will be on blood thinner for at least 3-6months. Please ensure you let your doctor's know prior to any procedure. Please ensure follow up with your Vascular doctor for follow up and evaluation of your aortic aneurysm. It was a pleasure taking care of you. Pending Studies at Discharge: No Stand-Alone Forms: My [facility], Smoking Cessation Medications and DC Order Prescriptions: New Eliquis 5 mg Tablet See Rx Instructions .ROUTE .COMPLEX Qty: 72 0RF Rx Instructions: Take 10mg bid till 03/11/22, then 5mg bid from 03/12/22 Continued garlic 500 mg Capsule 500 mg PO BID glucosamine sulfate 500 mg Capsule 500 mg PO HS omega 4-btq-lay-fish oil [Fish Oil] 1,000 mg (120 mg-180 mg) Capsule 1 cap PO BID metoprolol succinate 50 mg tablet extended release 24 hr 25 mg PO QAM omeprazole 20 mg capsule,delayed release(DR/EC) 20 mg PO QAM lisinopril 5 mg tablet 5 mg PO QAM rosuvastatin 40 mg tablet 40 mg PO HS acetaminophen 500 mg Tablet 500 mg PO QID PRN (Reason: Pain) aspirin 81 mg Tablet,Chewable 81 mg PO DAILY Discharge Orders: Discharge Order (Routine); Ordered 03/05/22 Ordered By: Candis Bean/Other Patient Handouts: Pulmonary Embolism Admission Data Admit Date/Time: 03/03/22 17:19 Attending Provider: Candis Harkins I. Admit Provider: Bakari Arzola Primary Care Provider: Hipolito Coates Other Providers: Bakari Arzola Other Interventions: Discharge Summary Assessment (RN) Last Done: 03/05/22 11:29
== END 2022-03-05 13:37 | disposition home or self-care (01) | DRG 176 ==
LOC: ED 13:05 → EDINP 17:19 → SUATTDRO 17:19 → 2N 23:31

== ENCOUNTER 2022-09-17 07:15 | Inpatient (IN) ==
[2022-09-17] MEDS ORDERED: ACETAMINOPHEN 500 MG TAB PO STA (07:38)
[2022-09-17] MEDS: SODIUM CHLORIDE 0.9% 1000ML 1,000 ML IV SCH ×2 (08:20→09:22)
--- NOTE | 2022-09-17 08:31 | XRay Report ---
XR chest 1V portable HISTORY: Sepsis COMPARISON: Chest 06/25/2019. FINDINGS: The heart remains enlarged. Right basilar linear densities favor subsegmental atelectasis o r scarring. This remains unchanged. Right lung volume loss and elevation the right hemidiaphragm pers ists. No new focal lung consolidations to suggest a pneumonia. No evidence for pulmonary edema. There are poststernotomy changes. IMPRESSION: No significant change compared to the prior study. No acute process. ACT 112: Negative or not required by law. Electronically signed by: Gabe Olsen M.D. 09/17/2022 8:30 AM
[2022-09-17 08:32] LABS: Influenza A virus by PCR Negative (Neg); Influenza B virus by PCR Negative (Neg); RSV by PCR Negative (Neg)
[2022-09-17 08:46] LABS: SARS CoV2 RNA(COVID-19) Ceph POSITIVE (Negative)
[2022-09-17 09:03] LABS: Alanine Aminotransferase 27 U/L (7-52); Albumin Level 4.1 gm/dl (3.4-5.0); Alkaline Phosphatase 53 U/L (34-104); Anion Gap 7 (3-11); Aspartate Aminotransferase 49 U/L (13-39); BUN Creatinine Ratio 13.4 (10-20); Bilirubin,Total 0.7 mg/dl (0.2-1.0); Blood Urea Nitrogen 21 mg/dl (6-23); Calcium 8.9 mg/dl (8.5-10.1); Carbon Dioxide 23 mmol/L (21-32); Chloride 103 mmol/L (98-107); Est GFR (African American) 48.6 ml/min; Est GFR (Non-African American) 41.9 ml/min; Glucose 111 mg/dl (70-99(Fasting)); Magnesium 1.9 mg/dl (1.7-2.4); Potassium 5.2 mmol/L (3.5-5.1); Sodium 133 mmol/L (136-145); Total Protein 7.2 gm/dl (6.0-8.3); Troponin I High Sensitivity 8.4 pg/ml (0-20)
[2022-09-17 09:33] LABS: Basophils # (auto) 0.02 K/uL (0-0.2); Basophils % (auto) 0.3 %; Eosinophils # (auto) 0.02 K/uL (0-0.50); Eosinophils % (auto) 0.3 %; Hemoglobin 12.7 g/dl (14.0-18.0); Immature Granulocytes # (auto) 0.01 K/uL (0.01-0.20); Immature Granulocytes % (auto) 0.2 %; Lymphocytes # (auto) 0.29 K/uL (1.2-3.4); Lymphocytes % (auto) 4.8 %; Mean Corpuscular Hemoglobin 32.6 pg (25.0-34.0); Mean Corpuscular Hgb Conc 33.4 g/dL (32.0-36.0); Mean Corpuscular Volume 97.7 fL (80.0-100.0); Mean Platelet Volume 9.1 fL (9.4-12.4); Monocytes # (auto) 0.47 K/uL (0.11-0.59); Monocytes % (auto) 7.8 %; Neutrophils # (auto) 5.19 K/uL (1.40-6.50); Neutrophils % (auto) 86.6 %; Platelet Count 118 K/uL (130-400); RDW Coefficient of Variation 13.1 % (11.5-14.5); RDW Standard Deviation 46.7 fL (36.4-46.3); Red Blood Count 3.89 M/uL (4.70-6.10)
[2022-09-17 09:54] LABS: Appearance Urine Clear (Clear); Bacteria Urine Automated Negative (Negative); Bilirubin Urine Negative (Negative); Blood Urine Trace (Negative); Cast Urine Automated 0 /lpf (0-5); Color Urine Yellow; Glucose Urine UA Negative (Negative); Ketones Urine Negative (Negative); Leukocyte Esterase Urine Negative (Negative); Nitrite Urine Negative (Negative); Protein Urine 1+ (Negative); Urobilinogen Urine Negative (Negative); pH Urine 6.5 (4.5-7.5)
--- NOTE | 2022-09-17 10:34 | Electrocardiogram Report ---
Test Reason : Blood Pressure : / mmHG Vent. Rate : 104 BPM Atrial Rate : 104 BPM P-R Int : 182 ms QRS Dur : 122 ms QT Int : 364 ms P-R-T Axes : 066 -36 034 degrees QTc Int : 478 ms Poor data quality, interpretation may be adversely affected Sinus tachycardia Left axis deviation Right bundle branch block Abnormal ECG When compared with ECG of 03-MAR-2022 13:14, Vent. rate has increased BY 37 BPM Confirmed by Rocael Mccann ([id number]) on 09/17/2022 10:34:16 AM Referred By: REFERRED SELF Confirmed By:Sandip Mccann
[2022-09-17] MEDS ORDERED: ONDANSETRON INJ 2 MG/ML 2 ML VIAL IV PRN (11:36)
[2022-09-17] MEDS ORDERED: MAGNESIUM HYDROXIDE SUSP 30 ML UDC PO PRN (11:36)
[2022-09-17] MEDS ORDERED: ALUMINUM/MAGNESIUM SUSP 30 ML UDC PO PRN (11:36)
[2022-09-17] MEDS ORDERED: POLYETHYLENE (MIRALAX) 17 GM PACK PO PRN (11:36)
--- NOTE | 2022-09-17 12:26 | History & Physical Report ---
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 Patient not vaccinated and does not wish to be vaccinated per discussion with patient's daughter. Vaccine status/month: [Patient not vaccinated] ; S/S -------- Cough/febrile illness/no change in his smell or taste sensation/no diarrhea/no decreased appetite; Tested Positive for covid: On 09/17 Admitting pro-Nikhil: 0.12 Admitting imaging: CXR reviewed Clinically, on room air, started feeling better Encourage every hour incentive spirometer/flutter valve Tessalon Perles and Mucinex for cough BNP: Pending; Strict I's and O's; as needed IV Lasix; monitor BMP Continue to monitor over telemetry. PT/OT when able. Mild hyperkalemia: Patient with CKD stage IIIb, potassium at 5.2, low potassium diet, continue to monitor daily. Mild hyponatremia: Likely secondary to acute illness, monitor BMP in AM. Other chronic medical conditions: CAD, bilateral PE, morbid obesity, CKD stage IIIb --- resume home meds as and when able. 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 Patient reports being ill, weak, dizzy associated with fever [maximum measured at [id number]], is very hard of hearing and hence most of the history was taken from the chart review and are from his daughter. Patient did deny any discomfort or pain or chest pain or diarrhea. Patient did report " I started to feel better now" during my bedside exam. Family not aware if he is bringing up any sputum with the cough, has been coughing on and off. There has been no reports of nausea or vomiting, appetite has been good, no reports of diarrhea. Personal history is positive for blood clot April last year, negative for cancer or NE. Family history is negative for cancer or NE or stroke. Patient does not smoke tobacco/use alcohol or recreational drugs. Full code as per my discussion with patient's daughter. He does not have living will as per her. Medications discussed with patient's daughter. Plan of care discussed with patient and his daughter. Allergies Allergy/AdvReac Type Severity Reaction Status Date / Time No Known Allergies Allergy Unverified 09/17/22 09:27 Home Medications Medication Instructions Recorded Confirmed Type lisinopril 5 mg tablet 5 mg PO QAM 06/25/19 09/17/22 History metoprolol succinate 50 mg 25 mg PO QAM 06/25/19 09/17/22 History tablet,extended release 24 hr omeprazole 20 mg capsule,delayed 20 mg PO QAM 06/25/19 09/17/22 History release rosuvastatin 40 mg tablet 40 mg PO HS 06/25/19 09/17/22 History garlic 500 mg capsule 500 mg PO BID 12/23/19 09/17/22 History glucosamine sulfate 500 mg capsule 500 mg PO HS 12/23/19 09/17/22 History omega 2-zel-pwf-fish oil 1,000 mg 1 cap PO BID 12/23/19 09/17/22 History (120 mg-180 mg) capsule (Fish Oil) acetaminophen 500 mg tablet 500 mg PO QID PRN Pain 05/04/21 09/17/22 History aspirin 81 mg chewable tablet 81 mg PO QAM 05/04/21 09/17/22 History apixaban 5 mg tablet (Eliquis) 5 mg PO BID 09/17/22 09/17/22 History Past Med/Surg History Medical History (Updated 09/17/22 @ 12:28 by Bakari Arzola MD) Abdominal aortic aneurysm CAD (coronary artery disease) CKD (chronic kidney disease), stage III GERD (gastroesophageal reflux disease) Hypercholesteremia Hypertension Left anterior fascicular block Obesity Osteoarthritis of knee Right bundle branch block Surgical History H/O heart bypass surgery H/O umbilical hernia repair Family History Other Cancer Diabetes Heart disease Social History Smoking Status: Never smoker Tobacco Type: Cigarettes Second Hand Exposure: No; Hx Alcohol Use: No Hx Substance Use: No Preferred Language: Italian Communication Ability: Effective Clinical Pathologist Required: No Beliefs That Will Affect Care: None marital status: Current Living Situation: Family Feels Safe at Home: Yes Assistive Devices: Cane Review of Systems Review of Systems: Negative otherwise mentioned in HPI. Physical Exam Physical Exam: GENERAL: Alert and oriented x3. NAD, on RA. Appears ill/weak. Very Hard of Hearing. Morbidly obese. HEENT: No pallor, no icterus. Pupils equal, round and reactive to light. Oral mucosa moist. NECK: No JVD, no neck masses. HEART: S1 and S2 heard. Regular rate and rhythm. No murmur, no gallop. RESPIRATORY SYSTEM: Normal AP diameter. No accessory muscle use. No wheezing, no crackles. ABDOMEN: Soft, bowel sounds present, nontender, no distention. CENTRAL NERVOUS SYSTEM: No facial droop. Speech is clear. Obeys simple commands. Moves extremities. EXTREMITIES: No edema, no erythema seen. Results & Data Results & Data Vital Signs (Past 12 Hours) Vital Signs Temp Pulse Pulse Resp BP BP Pulse Ox 09/17/22 11:00 83 18 96/69 L 93 09/17/22 11:00 83 19 93 09/17/22 11:00 96/69 L 09/17/22 10:45 91 H 17 92 09/17/22 10:30 85 23 93 09/17/22 10:30 111/67 09/17/22 10:15 91 H 20 92 09/17/22 10:18 37.4 C 09/17/22 10:00 85 27 H 92 09/17/22 10:00 117/63 09/17/22 09:45 87 18 93 09/17/22 09:30 96 H 15 92 09/17/22 09:30 112/68 09/17/22 09:15 94 H 17 93 09/17/22 09:00 97 H 16 92 09/17/22 09:00 115/58 L 09/17/22 08:45 92 09/17/22 08:49 37.6 C H 09/17/22 08:31 103 H 26 H 92 09/17/22 08:31 106/48 L 09/17/22 08:30 103 H 25 H 92 09/17/22 08:15 104 H 23 09/17/22 08:10 104 H 09/17/22 08:00 102 H 21 92 09/17/22 07:55 103 H 23 92 09/17/22 07:54 09/17/22 07:37 38.6 C H 103 H 24 129/78 93 09/17/22 07:17 39.2 C H 109 H 18 142/72 H 92 O2 Del Method 09/17/22 11:00 Room Air 09/17/22 11:00 Room Air 09/17/22 11:00 09/17/22 10:45 Room Air 09/17/22 10:30 Room Air 09/17/22 10:30 09/17/22 10:15 Room Air 09/17/22 10:18 09/17/22 10:00 Room Air 09/17/22 10:00 09/17/22 09:45 Room Air 09/17/22 09:30 Room Air 09/17/22 09:30 09/17/22 09:15 Room Air 09/17/22 09:00 Room Air 09/17/22 09:00 09/17/22 08:45 Room Air 09/17/22 08:49 09/17/22 08:31 Room Air 09/17/22 08:31 09/17/22 08:30 Room Air 09/17/22 08:15 09/17/22 08:10 09/17/22 08:00 Room Air 09/17/22 07:55 Room Air 09/17/22 07:54 Room Air 09/17/22 07:37 Room Air 09/17/22 07:17 Room Air Code Status & VTE Plan VTE Prophylaxis Plan VTE Prophylaxis will be ordered: Yes
[2022-09-17] MEDS ORDERED: BENZONATATE 100 MG CAPSULE ONE (13:05)
[2022-09-17] MEDS: ACETAMINOPHEN 325 MG TAB PO PRN ×2 (15:51→20:36)
[2022-09-17] MEDS: BENZONATATE 100 MG CAPSULE PO SCH ×2 (15:53→19:58)
--- NOTE | 2022-09-17 18:07 | Emergency Department Note ---
Impression & Plan COVID-19, Generalized muscle weakness, Fever ED Provider Note CHIEF COMPLAINT: weakness HISTORY OF PRESENT ILLNESS: This 76-year-old male patient with a history of bilateral PE, chronic kidney disease, coronary artery disease, abdominal aortic aneurysm, right bundle branch block, GERD, and hypertension presents to the emergency department with complaints of generalized weakness. Patient states his legs were shaking today and he was not able to walk. Son-in-law is at the bedside and states he does not know much about his medical history because his normally cares for him. Both the patient and his elderly have become symptomatic over the last 24 hours. They have not noticed a fever but do admit to a dry cough. There has been no vomiting or diarrhea. The patient did take Tylenol late last evening. The patient, his , their daughter and son-in-law all live together. Son-in-law and daughter are not ill. REVIEW OF SYSTEMS: A review of systems was performed with positives and pertinent negatives listed in the history of present illness. 10 systems were reviewed and are otherwise negative. ALLERGIES: see below MEDICATIONS: see below PMH: see below SOCIAL HISTORY: see below DDx:Infection, dehydration, metabolic abnormality, hypo/hyperglycemia, sierra ctrolyte disturbance, anemia, hypoxia, cardiac sources, intracerebral event, toxicologic, neurologic, as well as other pathologies. PHYSICAL EXAM: Vital signs reviewed. General: Chronically ill-appearing 76-year-old male, in no significant distress. HEENT: No scleral icterus, PERRLA, neck supple. Dry mucous membranes. Cardiovascular: Regular rate and rhythm, no extra sounds. Pulmonary: Clear to auscultation bilaterally, normal work of breathing. Abdomen: Soft, obese, nontender, nondistended, positive bowel sounds. Musculoskeletal: Atraumatic, no peripheral edema. Neurologic: Patient awake alert and oriented x 3, speech is clear Skin: Warm, dry, no rash EMERGENCY DEPARTMENT COURSE/MDM: This patient was evaluated and appeared to be in no significant distress. IV access was obtained and laboratory work was drawn. The patient was placed on the clinical research monitor noted to be in a sinus t achycardia. Patient was medicated with 1 g of IV Tylenol for a temperature of 38 9. Chest x-ray was performed and reveals some mild atelectasis in the right basilar region. Patient's laboratory work is reassuring. The patient has tested positive for COVID-19. I did speak with the patient's daughter who is his primary caregiver. Given that both parents are ill and requiring near total care, the patient will be evaluated for admission by the hospitalist service. MONITORING: An order for cardiac monitoring was placed and the patient is noted to be in a sinus tachycardia at 105 beats per minute. RADIOLOGY: Chest x-ray to my interpretation reveals a right hemidiaphragm elevation, mild cardiomegaly, positive atelectasis in the right lower lung field, no other focal lung consolidation or failure. Poststernotomy changes EKG: To my interpretation reveals a sinus tachycardia at 104 bpm, left axis deviation, right bundle branch block. QTc is 478. Normal ST segments. When compared to previous dated March 03, 2022, the rate has increased by 37 bpm DISPOSITION: Admission Past Med/Surg History Medical History Abdominal aortic aneurysm CAD (coronary artery disease) CKD (chronic kidney disease), stage III GERD (gastroesophageal reflux disease) Hypercholesteremia Hypertension Left anterior fascicular block Obesity Osteoarthritis of knee Right bundle branch block Surgical History H/O heart bypass surgery H/O umbilical hernia repair Family History Other Cancer Diabetes Heart disease Social History Smoking Status: Unknown if ever smoked Tobacco Type: Cigarettes Second Hand Exposure: No; Hx Alcohol Use: No (unknown) Hx Substance Use: No (unknown) Preferred Language: Syriac Communication Ability: Effective Commodity Trader Required: No Beliefs That Will Affect Care: None marital status: Current Living Situation: Spouse Current Living Situation Comment: Per they live in a 2 story house and 2 a dult daughters live with them Feels Safe at Home: Yes Assistive Devices: Cane Allergies Allergies Allergy/AdvReac Type Severity Reaction Status Date / Time No Known Allergies Allergy Unverified 09/17/22 09:27 Home Meds Home Medications Medication Instructions Recorded Confirmed lisinopril 5 mg tablet 5 mg PO QAM 06/25/19 09/17/22 metoprolol succinate 50 mg 25 mg PO QAM 06/25/19 09/17/22 tablet,extended release 24 hr omeprazole 20 mg capsule,delayed 20 mg PO QAM 06/25/19 09/17/22 release rosuvastatin 40 mg tablet 40 mg PO HS 06/25/19 09/17/22 garlic 500 mg capsule 500 mg PO BID 12/23/19 09/17/22 glucosamine sulfate 500 mg capsule 500 mg PO HS 12/23/19 09/17/22 omega 3-muw-ais-fish oil 1,000 mg 1 cap PO BID 12/23/19 09/17/22 (120 mg-180 mg) capsule (Fish Oil) acetaminophen 500 mg tablet 500 mg PO QID PRN Pain 05/04/21 09/17/22 aspirin 81 mg chewable tablet 81 mg PO QAM 05/04/21 09/17/22 apixaban 5 mg tablet (Eliquis) 5 mg PO BID 09/17/22 09/17/22 Results & Data (ED) Vital Signs Vital Signs - 24 hr 09/17/22 07:17 09/17/22 07:37 09/17/22 07:54 Temperature 39.2 C H 38.6 C H Temperature Source Temporal Artery Scan Oral Pulse Rate 109 H Pulse Rate [Apical] 103 H Pulse Rate from SpO2 Sensor Pulse Rhythm [Apical] Pulse Strength [Apical] Respiratory Rate 18 24 Respiratory Effort / Characteristics Respiratory Depth Respiratory Pattern Blood Pressure 142/72 H Blood Pressure [Left Arm] 129/78 Blood Pressure Mean 95 Blood Pressure Mean [Left Arm] 95 Blood Pressure Position [Left Arm] Pulse Oximetry 92 93 Oxygen Delivery Method Room Air Room Air Room Air Sepsis Recent Fever Within 48 Hours No Sepsis New/Unexplained Change in Mental Status No Sepsis Action Taken by Nursing No Action Required 09/17/22 07:55 09/17/22 08:00 09/17/22 08:10 Temperature Temperature Source Pulse Rate 103 H 102 H 104 H Pulse Rate [Apical] Pulse Rate from SpO2 Sensor 103 H 103 H Pulse Rhythm [Apical] Pulse Strength [Apical] Respiratory Rate 23 21 Respiratory Effort / Characteristics Respiratory Depth Respiratory Pattern Blood Pressure Blood Pressure [Left Arm] Blood Pressure Mean Blood Pressure Mean [Left Arm] Blood Pressure Position [Left Arm] Pulse Oximetry 92 92 Oxygen Delivery Method Room Air Room Air Sepsis Recent Fever Within 48 Hours Sepsis New/Unexplained Change in Mental Status Sepsis Action Taken by Nursing 09/17/22 08:15 09/17/22 08:30 09/17/22 08:31 Temperature Temperature Source Pulse Rate 104 H 103 H Pulse Rate [Apical] Pulse Rate from SpO2 Sensor 103 H Pulse Rhythm [Apical] Pulse Strength [Apical] Respiratory Rate 23 25 H Respiratory Effort / Characteristics Respiratory Depth Respiratory Pattern Blood Pressure 106/48 L Blood Pressure [Left Arm] Blood Pressure Mean 67 Blood Pressure Mean [Left Arm] Blood Pressure Position [Left Arm] Pulse Oximetry 92 Oxygen Delivery Method Room Air Sepsis Recent Fever Within 48 Hours Sepsis New/Unexplained Change in Mental Status Sepsis Action Taken by Nursing 09/17/22 08:31 09/17/22 08:49 09/17/22 08:45 Temperature 37.6 C H Temperature Source Oral Pulse Rate 103 H Pulse Rate [Apical] Pulse Rate from SpO2 Sensor 103 H 99 H Pulse Rhythm [Apical] Pulse Strength [Apical] Respiratory Rate 26 H Respiratory Effort / Characteristics Respiratory Depth Respiratory Pattern Blood Pressure Blood Pressure [Left Arm] Blood Pressure Mean Blood Pressure Mean [Left Arm] Blood Pressure Position [Left Arm] Pulse Oximetry 92 92 Oxygen Delivery Method Room Air Room Air Sepsis Recent Fever Within 48 Hours Sepsis New/Unexplained Change in Mental Status Sepsis Action Taken by Nursing 09/17/22 09:00 09/17/22 09:00 09/17/22 09:15 Temperature Temperature Source Pulse Rate 97 H 94 H Pulse Rate [Apical] Pulse Rate from SpO2 Sensor 98 H 94 H Pulse Rhythm [Apical] Pulse Strength [Apical] Respiratory Rate 16 17 Respiratory Effort / Characteristics Respiratory Depth Respiratory Pattern Blood Pressure 115/58 L Blood Pressure [Left Arm] Blood Pressure Mean 77 Blood Pressure Mean [Left Arm] Blood Pressure Position [Left Arm] Pulse Oximetry 92 93 Oxygen Delivery Method Room Air Room Air Sepsis Recent Fever Within 48 Hours Sepsis New/Unexplained Change in Mental Status Sepsis Action Taken by Nursing 09/17/22 09:30 09/17/22 09:30 09/17/22 09:45 Temperature Temperature Source Pulse Rate 96 H 87 Pulse Rate [Apical] Pulse Rate from SpO2 Sensor 96 H 92 H Pulse Rhythm [Apical] Pulse Strength [Apical] Respiratory Rate 15 18 Respiratory Effort / Characteristics Respiratory Depth Respiratory Pattern Blood Pressure 112/68 Blood Pressure [Left Arm] Blood Pressure Mean 82 Blood Pressure Mean [Left Arm] Blood Pressure Position [Left Arm] Pulse Oximetry 92 93 Oxygen Delivery Method Room Air Room Air Sepsis Recent Fever Within 48 Hours Sepsis New/Unexplained Change in Mental Status Sepsis Action Taken by Nursing 09/17/22 10:00 09/17/22 10:00 09/17/22 10:18 Temperature 37.4 C Temperature Source Oral Pulse Rate 85 Pulse Rate [Apical] Pulse Rate from SpO2 Sensor 86 Pulse Rhythm [Apical] Pulse Strength [Apical] Respiratory Rate 27 H Respiratory Effort / Characteristics Respiratory Depth Respiratory Pattern Blood Pressure 117/63 Blood Pressure [Left Arm] Blood Pressure Mean 81 Blood Pressure Mean [Left Arm] Blood Pressure Position [Left Arm] Pulse Oximetry 92 Oxygen Delivery Method Room Air Sepsis Recent Fever Within 48 Hours Sepsis New/Unexplained Change in Mental Status Sepsis Action Taken by Nursing 09/17/22 10:15 09/17/22 10:30 09/17/22 10:30 Temperature Temperature Source Pulse Rate 91 H 85 Pulse Rate [Apical] Pulse Rate from SpO2 Sensor 91 H 85 Pulse Rhythm [Apical] Pulse Strength [Apical] Respiratory Rate 20 23 Respiratory Effort / Characteristics Respiratory Depth Respiratory Pattern Blood Pressure 111/67 Blood Pressure [Left Arm] Blood Pressure Mean 81 Blood Pressure Mean [Left Arm] Blood Pressure Position [Left Arm] Pulse Oximetry 92 93 Oxygen Delivery Method Room Air Room Air Sepsis Recent Fever Within 48 Hours Sepsis New/Unexplained Change in Mental Status Sepsis Action Taken by Nursing 09/17/22 10:45 09/17/22 11:00 09/17/22 11:00 Temperature Temperature Source Pulse Rate 91 H 83 Pulse Rate [Apical] Pulse Rate from SpO2 Sensor 90 83 Pulse Rhythm [Apical] Pulse Strength [Apical] Respiratory Rate 17 19 Respiratory Effort / Characteristics Respiratory Depth Respiratory Pattern Blood Pressure 96/69 L Blood Pressure [Left Arm] Blood Pressure Mean 78 Blood Pressure Mean [Left Arm] Blood Pressure Position [Left Arm] Pulse Oximetry 92 93 Oxygen Delivery Method Room Air Room Air Sepsis Recent Fever Within 48 Hours Sepsis New/Unexplained Change in Mental Status Sepsis Action Taken by Nursing 09/17/22 11:00 Temperature Temperature Source Pulse Rate Pulse Rate [Apical] 83 Pulse Rate from SpO2 Sensor Pulse Rhythm [Apical] Regular Pulse Strength [Apical] Normal Respiratory Rate 18 Respiratory Effort / Characteristics Non-Labored Respiratory Depth Normal Respiratory Pattern Regular Blood Pressure Blood Pressure [Left Arm] 96/69 L Blood Pressure Mean Blood Pressure Mean [Left Arm] 78 Blood Pressure Position [Left Arm] Lying Pulse Oximetry 93 Oxygen Delivery Method Room Air Sepsis Recent Fever Within 48 Hours Sepsis New/Unexplained Change in Mental Status Sepsis Action Taken by Shelter Medications Current Medication List: was personally reviewed by me Laboratory Data Attestation: I reviewed the patient's lab results. 09/17/22 09:13 09/17/22 08:13 Lab Results 09/17/22 09/17/22 09/17/22 Range/Units 07:50 08:13 08:13 WBC Cancelled RBC Cancelled Hgb Cancelled Hct Cancelled MCV Cancelled MCH Cancelled MCHC Cancelled RDW Std Deviation Cancelled RDW Coeff of Mirela Cancelled Plt Count Cancelled MPV Cancelled Immature Gran % (Auto) Cancelled Neut % (Auto) Cancelled Lymph % (Auto) Cancelled [place] % (Auto) Cancelled Eos % (Auto) Cancelled Baso % (Auto) Cancelled Neut # (Auto) Cancelled Lymph # (Auto) Cancelled [place] # (Auto) Cancelled Eos # (Auto) Cancelled Baso # (Auto) Cancelled Immature Gran # (Auto) Cancelled Absolute Nucleated RBC Cancelled Nucleated RBC % (auto) Cancelled Neutrophils % (Manual) Cancelled Band Neutrophils % Cancelled Lymphocytes % (Manual) Cancelled Prolymphocyte % Cancelled Reactive Lymphs % (Man) Cancelled Monocytes % (Manual) Cancelled Eosinophils % (Manual) Cancelled Basophils % (Manual) Cancelled Metamyelocytes % (Man) Cancelled Myelocytes % (Man) Cancelled Promyelocytes % (Man) Cancelled Blast Cells % (Manual) Cancelled Plasma Cell % (Manual) Cancelled Other Cells % Cancelled Nucleated RBC % Cancelled Neutrophils # (Manual) Cancelled Band Neutrophils # Cancelled Total Absolute Neuts Cancelled Lymphocytes # (Manual) Cancelled Prolymphocyte # Cancelled Reactive Lymphs # Cancelled Total Abs Lymphocytes Cancelled Monocytes # (Manual) Cancelled Eosinophils # (Manual) Cancelled Basophils # (Manual) Cancelled Metamyelocytes # (Man) Cancelled Myelocytes # (Manual) Cancelled Promyelocytes # (Man) Cancelled Blast Cells # (Man) Cancelled Plasma Cell # (Manual) Cancelled Other Cells # Cancelled Nucleated RBCs # (Man) Cancelled Hypersegmented Neuts Cancelled Hyposegmented Neuts Cancelled Hypogranular Neuts Cancelled Large Granular Lymphs Cancelled # Lrg Granular Lymphs Cancelled Hairy Cells Cancelled Smudge Cells Cancelled Toxic Granulation Cancelled Toxic Vacuolation Cancelled Dohle Bodies Cancelled Luis Rods Cancelled Platelet Estimate Cancelled Hypogranular Platelets Cancelled Giant Platelets Cancelled Platelet Satelliting Cancelled RBC Morphology Cancelled Polychromasia Cancelled Hypochromasia Cancelled Poikilocytosis Cancelled Basophilic Stippling Cancelled Anisocytosis Cancelled Microcytosis Cancelled Macrocytosis Cancelled Spherocytes Cancelled Pappenheimer Bodies Cancelled Sickle Cells Cancelled Target Cells Cancelled Tear Drop Cells Cancelled Ovalocytes Cancelled Stomatocytes Cancelled Parkinson-Mcaden[place] Bodies Cancelled Echinocytes Cancelled Acanthocytes (Spur) Cancelled Rouleaux Cancelled RBC Agglutinates Cancelled Schistocytes Cancelled Sezary Cell Cancelled Sodium 133 L (136-145) mmol/L Potassium 5.2 H (3.5-5.1) mmol/L Chloride 103 (98-107) mmol/L Carbon Dioxide 23 (21-32) mmol/L Anion Gap 7 (3-11) BUN 21 (6-23) mg/dl Creatinine 1.57 H (0.6-1.4) mg/dl Est Cr Clr Drug Dosing Not Reportable Est GFR ( Amer) 48.6 ml/min Est GFR (Non-Af Amer) 41.9 ml/min BUN/Creatinine Ratio 13.4 (10-20) Glucose 111 H (70-99(Fasting)) mg/dl Lactate (0.4-2.0) mmol/L Calcium 8.9 (8.5-10.1) mg/dl Magnesium 1.9 (1.7-2.4) mg/dl Total Bilirubin 0.7 (0.2-1.0) mg/dl Direct Bilirubin TNP AST 49 H (13-39) U/L ALT 27 (7-52) U/L Alkaline Phosphatase 53 (34-104) U/L Troponin I High Sens 8.4 (0-20) pg/ml Total Protein 7.2 (6.0-8.3) gm/dl Albumin 4.1 (3.4-5.0) gm/dl Procalcitonin (0-0.5) ng/ml Urine Color Urine Appearance (Clear) Urine pH (4.5-7.5) Ur Specific [place] (1.000-1.030) Urine Protein (Negative) Urine Glucose (UA) (Negative) Urine Ketones (Negative) Urine Blood (Negative) Urine Nitrite (Negative) Urine Bilirubin (Negative) Urine Urobilinogen (Negative) Ur Leukocyte Esterase (Negative) Urine WBC (Auto) (0-5) /hpf Urine RBC (Auto) (0-4) /hpf U Hyaline Cast (Auto) (0-5) /lpf U Epithel Cells (Auto) (0-5) /lpf Urine Bacteria (Auto) (Negative) SARS-CoV-2 (PCR) POSITIVE A* (Negative) Influenza Type A (PCR) Negative (Neg) Influenza Type B (PCR) Negative (Neg) RSV (RT-PCR) Negative (Neg) Blood Parasites ID Cancelled 09/17/22 09/17/22 09/17/22 Range/Units 08:13 08:15 09:13 WBC 6.00 RBC 3.89 L Hgb 12.7 L Hct 38.0 L MCV 97.7 MCH 32.6 MCHC 33.4 RDW Std Deviation 46.7 H RDW Coeff of Mirela 13.1 Plt Count 118 L MPV 9.1 L Immature Gran % (Auto) 0.2 Neut % (Auto) 86.6 Lymph % (Auto) 4.8 [place] % (Auto) 7.8 Eos % (Auto) 0.3 Baso % (Auto) 0.3 Neut # (Auto) 5.19 Lymph # (Auto) 0.29 L [place] # (Auto) 0.47 Eos # (Auto) 0.02 Baso # (Auto) 0.02 Immature Gran # (Auto) 0.01 Absolute Nucleated RBC Nucleated RBC % (auto) Neutrophils % (Manual) Band Neutrophils % Lymphocytes % (Manual) Prolymphocyte % Reactive Lymphs % (Man) Monocytes % (Manual) Eosinophils % (Manual) Basophils % (Manual) Metamyelocytes % (Man) Myelocytes % (Man) Promyelocytes % (Man) Blast Cells % (Manual) Plasma Cell % (Manual) Other Cells % Nucleated RBC % Neutrophils # (Manual) Band Neutrophils # Total Absolute Neuts Lymphocytes # (Manual) Prolymphocyte # Reactive Lymphs # Total Abs Lymphocytes Monocytes # (Manual) Eosinophils # (Manual) Basophils # (Manual) Metamyelocytes # (Man) Myelocytes # (Manual) Promyelocytes # (Man) Blast Cells # (Man) Plasma Cell # (Manual) Other Cells # Nucleated RBCs # (Man) Hypersegmented Neuts Hyposegmented Neuts Hypogranular Neuts Large Granular Lymphs # Lrg Granular Lymphs Hairy Cells Smudge Cells Toxic Granulation Toxic Vacuolation Dohle Bodies Luis Rods Platelet Estimate Hypogranular Platelets Giant Platelets Platelet Satelliting RBC Morphology Polychromasia Hypochromasia Poikilocytosis Basophilic Stippling Anisocytosis Microcytosis Macrocytosis Spherocytes Pappenheimer Bodies Sickle Cells Target Cells Tear Drop Cells Ovalocytes Stomatocytes Parkinson-Mcaden[place] Bodies Echinocytes Acanthocytes (Spur) Rouleaux RBC Agglutinates Schistocytes Sezary Cell Sodium (136-145) mmol/L Potassium (3.5-5.1) mmol/L Chloride (98-107) mmol/L Carbon Dioxide (21-32) mmol/L Anion Gap (3-11) BUN (6-23) mg/dl Creatinine (0.6-1.4) mg/dl Est Cr Clr Drug Dosing Est GFR ( Amer) ml/min Est GFR (Non-Af Amer) ml/min BUN/Creatinine Ratio (10-20) Glucose (70-99(Fasting)) mg/dl Lactate 1.1 (0.4-2.0) mmol/L Calcium (8.5-10.1) mg/dl Magnesium (1.7-2.4) mg/dl Total Bilirubin (0.2-1.0) mg/dl Direct Bilirubin AST (13-39) U/L ALT (7-52) U/L Alkaline Phosphatase (34-104) U/L Troponin I High Sens (0-20) pg/ml Total Protein (6.0-8.3) gm/dl Albumin (3.4-5.0) gm/dl Procalcitonin 0.12 (0-0.5) ng/ml Urine Color Urine Appearance (Clear) Urine pH (4.5-7.5) Ur Specific [place] (1.000-1.030) Urine Protein (Negative) Urine Glucose (UA) (Negative) Urine Ketones (Negative) Urine Blood (Negative) Urine Nitrite (Negative) Urine Bilirubin (Negative) Urine Urobilinogen (Negative) Ur Leukocyte Esterase (Negative) Urine WBC (Auto) (0-5) /hpf Urine RBC (Auto) (0-4) /hpf U Hyaline Cast (Auto) (0-5) /lpf U Epithel Cells (Auto) (0-5) /lpf Urine Bacteria (Auto) (Negative) SARS-CoV-2 (PCR) (Negative) Influenza Type A (PCR) (Neg) Influenza Type B (PCR) (Neg) RSV (RT-PCR) (Neg) Blood Parasites ID 09/17/22 09/17/22 Range/Units 09:13 09:21 WBC RBC Hgb Hct MCV MCH MCHC RDW Std Deviation RDW Coeff of Mirela Plt Count MPV Immature Gran % (Auto) Neut % (Auto) Lymph % (Auto) [place] % (Auto) Eos % (Auto) Baso % (Auto) Neut # (Auto) Lymph # (Auto) [place] # (Auto) Eos # (Auto) Baso # (Auto) Immature Gran # (Auto) Absolute Nucleated RBC Nucleated RBC % (auto) Neutrophils % (Manual) Band Neutrophils % Lymphocytes % (Manual) Prolymphocyte % Reactive Lymphs % (Man) Monocytes % (Manual) Eosinophils % (Manual) Basophils % (Manual) Metamyelocytes % (Man) Myelocytes % (Man) Promyelocytes % (Man) Blast Cells % (Manual) Plasma Cell % (Manual) Other Cells % Nucleated RBC % Neutrophils # (Manual) Band Neutrophils # Total Absolute Neuts Lymphocytes # (Manual) Prolymphocyte # Reactive Lymphs # Total Abs Lymphocytes Monocytes # (Manual) Eosinophils # (Manual) Basophils # (Manual) Metamyelocytes # (Man) Myelocytes # (Manual) Promyelocytes # (Man) Blast Cells # (Man) Plasma Cell # (Manual) Other Cells # Nucleated RBCs # (Man) Hypersegmented Neuts Hyposegmented Neuts Hypogranular Neuts Large Granular Lymphs # Lrg Granular Lymphs Hairy Cells Smudge Cells Toxic Granulation Toxic Vacuolation Dohle Bodies Luis Rods Platelet Estimate Hypogranular Platelets Giant Platelets Platelet Satelliting RBC Morphology Polychromasia Hypochromasia Poikilocytosis Basophilic Stippling Anisocytosis Microcytosis Macrocytosis Spherocytes Pappenheimer Bodies Sickle Cells Target Cells Tear Drop Cells Ovalocytes Stomatocytes Parkinson-Mcadenville Bodies Echinocytes Acanthocytes (Spur) Rouleaux RBC Agglutinates Schistocytes Sezary Cell Sodium (136-145) mmol/L Potassium (3.5-5.1) mmol/L Chloride (98-107) mmol/L Carbon Dioxide (21-32) mmol/L Anion Gap (3-11) BUN (6-23) mg/dl Creatinine (0.6-1.4) mg/dl Est Cr Clr Drug Dosing Est GFR ( Amer) ml/min Est GFR (Non-Af Amer) ml/min BUN/Creatinine Ratio (10-20) Glucose (70-99(Fasting)) mg/dl Lactate (0.4-2.0) mmol/L Calcium (8.5-10.1) mg/dl Magnesium (1.7-2.4) mg/dl Total Bilirubin (0.2-1.0) mg/dl Direct Bilirubin 0.2 AST (13-39) U/L ALT (7-52) U/L Alkaline Phosphatase (34-104) U/L Troponin I High Sens (0-20) pg/ml Total Protein (6.0-8.3) gm/dl Albumin (3.4-5.0) gm/dl Procalcitonin (0-0.5) ng/ml Urine Color Yellow Urine Appearance Clear (Clear) Urine pH 6.5 (4.5-7.5) Ur Specific [place] 1.020 (1.000-1.030) Urine Protein 1+ H (Negative) Urine Glucose (UA) Negative (Negative) Urine Ketones Negative (Negative) Urine Blood Trace H (Negative) Urine Nitrite Negative (Negative) Urine Bilirubin Negative (Negative) Urine Urobilinogen Negative (Negative) Ur Leukocyte Esterase Negative (Negative) Urine WBC (Auto) 1-5 (0-5) /hpf Urine RBC (Auto) 5-10 H (0-4) /hpf U Hyaline Cast (Auto) 0 (0-5) /lpf U Epithel Cells (Auto) 10-20 H (0-5) /lpf Urine Bacteria (Auto) Negative (Negative) SARS-CoV-2 (PCR) (Negative) Influenza Type A (PCR) (Neg) Influenza Type B (PCR) (Neg) RSV (RT-PCR) (Neg) Blood Parasites ID Administered Medications Discontinued Medications Acetaminophen (Acetaminophen 500 Mg Tab) 1,000 mg PO NOW STA Stop: 09/17/22 07:39 Last Admin: 09/17/22 07:43 Dose: 1,000 mg Documented By: PARAMJIT Acetaminophen (Acetaminophen 325 Mg Tab) 650 mg PO Q4H PRN PRN Reason: Pain or Fever Stop: 10/17/22 11:35 Last Admin: 09/17/22 20:36 Dose: 650 mg Documented By: Admin: 09/17/22 15:51 Dose: 650 mg Documented By: [place] Apixaban (Apixaban 5 Mg Tablet) 5 mg PO BID [facility] Stop: 10/17/22 20:59 Last Admin: 09/19/22 08:36 Dose: 5 mg Documented By: Admin: 09/18/22 19:56 Dose: 5 mg Documented By: Admin: 09/18/22 08:21 Dose: 5 mg Documented By: Admin: 09/17/22 19:59 Dose: 5 mg Documented By: [place] Aspirin (Aspirin 81 Mg Ectab) 81 mg PO QAM [facility] Stop: 10/18/22 08:59 Last Admin: 09/19/22 08:37 Dose: 81 mg Documented By: Admin: 09/18/22 08:21 Dose: 81 mg Documented By: EVELYN Benzonatate (Benzonatate 100 Mg Capsule) 100 mg PO TID [facility] Stop: 10/17/22 13:59 Last Admin: 09/19/22 08:37 Dose: 100 mg Documented By: Admin: 09/18/22 19:58 Dose: 100 mg Documented By: Admin: 09/18/22 12:14 Dose: 100 mg Documented By: Admin: 09/18/22 08:21 Dose: 100 mg Documented By: Admin: 09/17/22 19:58 Dose: 100 mg Documented By: Admin: 09/17/22 15:53 Dose: Not Given Documented By: [place] Benzonatate (Benzonatate 100 Mg Capsule) Confirm Administered Dose 100 mg .ROUTE .ST-MED [facility] Stop: 09/17/22 13:06 Last Admin: 09/17/22 14:31 Dose: Not Given Documented By: AP Glucosamine Sulfate (Glucosamine Sulfate 500 Mg Cap) 500 mg PO HS [facility] Stop: 10/17/22 20:59 Last Admin: 09/18/22 19:57 Dose: 500 mg Documented By: Admin: 09/17/22 19:59 Dose: 500 mg Documented By: [place] Guaifenesin (Guaifenesin 600 Mg Tabcr) 600 mg PO Q12 [facility] Stop: 10/17/22 20:59 Last Admin: 09/19/22 08:36 Dose: 600 mg Documented By: Admin: 09/18/22 19:57 Dose: 600 mg Documented By: Admin: 09/18/22 09:32 Dose: 600 mg Documented By: Admin: 09/17/22 20:36 Dose: 600 mg Documented By: [place] Sodium Chloride (Nss 1000ml) 1,000 mls @ 999 mls/hr IV .Q1H1M [facility] Stop: 09/17/22 09:45 Last Infusion: 09/17/22 10:23 Dose: 0 mls/hr Documented By: Admin: 09/17/22 09:22 Dose: 999 mls/hr Documented By: Infusion: 09/17/22 09:21 Dose: 0 mls/hr Documented By: Admin: 09/17/22 08:20 Dose: 999 mls/hr Documented By: PARAMJIT Remdesivir 200 mg/ Sodium (Chloride) 250 mls @ 125 mls/hr IV TODAY@1245 STA; Protocol Stop: 09/18/22 14:35 Last Infusion: 09/18/22 15:48 Dose: 0 mls/hr Documented By: Admin: 09/18/22 13:28 Dose: 125 mls/hr Documented By: EVELYN Remdesivir 100 mg/ Sodium (Chloride) 250 mls @ 250 mls/hr IV Q24H [facility] Stop: 09/22/22 12:59 Last Infusion: 09/19/22 12:58 Dose: 0 mls/hr Documented By: Admin: 09/19/22 11:53 Dose: 250 mls/hr Documented By: SUBHASH Lisinopril (Lisinopril 5 Mg Tab) 5 mg PO [facility] Stop: 10/18/22 08:59 Last Admin: 09/19/22 08:36 Dose: 5 mg Documented By: Admin: 09/18/22 08:21 Dose: 5 mg Documented By: EVELYN Metoprolol Succinate (Metoprolol Succ 25mg Ext Rel Tab) 25 mg PO [facility] Stop: 10/18/22 08:59 Last Admin: 09/19/22 08:37 Dose: 25 mg Documented By: Admin: 09/18/22 08:21 Dose: 25 mg Documented By: EVELYN Pantoprazole Sodium (Pantoprazole 40 Mg Tab) 40 mg PO [facility] Stop: 10/18/22 08:59 Last Admin: 09/19/22 08:36 Dose: 40 mg Documented By: Admin: 09/18/22 08:21 Dose: 40 mg Documented By: EVELYN Rosuvastatin Calcium (Rosuvastatin Calcium 20 Mg Tab) 40 mg PO HS [facility] Stop: 10/17/22 20:59 Last Admin: 09/18/22 19:57 Dose: 40 mg Documented By: Admin: 09/17/22 19:58 Dose: 40 mg Documented By: LAT Imaging Data Radiologist's Impression: Chest X-Ray 09/17/22 07:38 XR chest 1V portable HISTORY: Sepsis COMPARISON: Chest 06/25/2019. FINDINGS: The heart remains enlarged. Right basilar linear densities favor subsegmental atelectasis or scarring. This remains unchanged. Right lung volume loss and elevation the right hemidiaphragm persists. No new focal lung consolidations to suggest a pneumonia. No evidence for pulmonary edema. There are poststernotomy changes. IMPRESSION: No significant change compared to the prior study. No acute process. ACT 112: Negative or not required by law. Electronically signed by: Gabe Olsen M.D. 09/17/2022 8:30 AM Discharge Plan Visit Data Chief Complaint: Leg Weakness, Bilateral Stated Complaint: CAN'T STAND AND IS SHAKEY ED Provider: Lovely Denise Discharge Problem: COVID-19, Generalized muscle weakness, Fever Patient Disposition: Admitted As Inpatient Discharge Instructions Interventions: ED Discharge Assessment Last Done: 09/17/22 14:44
[2022-09-17] MEDS: ROSUVASTATIN CALCIUM 20 MG TAB PO SCH (19:58)
[2022-09-17] MEDS: GLUCOSAMINE SULFATE 500 MG CAP PO SCH (19:59)
[2022-09-17] MEDS: APIXABAN 5 MG TABLET PO SCH (19:59)
[2022-09-17] MEDS: guaiFENesin 600 MG TABCR PO SCH (20:36)
[2022-09-18 01:34] LABS: Appearance Urine Clear (Clear); Bacteria Urine Automated Negative (Negative); Bilirubin Urine Negative (Negative); Blood Urine 1+ (Negative); Color Urine Yellow; Glucose Urine UA Negative (Negative); Ketones Urine Trace (Negative); Leukocyte Esterase Urine Negative (Negative); Nitrite Urine Negative (Negative); Protein Urine 1+ (Negative); Urobilinogen Urine Negative (Negative); pH Urine 5.5 (4.5-7.5)
[2022-09-18 07:15] LABS: Hematocrit (blood only) 38.1 % (42.0-52.0); Hemoglobin 12.7 g/dl (14.0-18.0); Mean Corpuscular Hemoglobin 33.1 pg (25.0-34.0); Mean Corpuscular Hgb Conc 33.3 g/dL (32.0-36.0); Mean Corpuscular Volume 99.2 fL (80.0-100.0); Platelet Count 103 K/uL (130-400); RDW Coefficient of Variation 13.3 % (11.5-14.5); RDW Standard Deviation 48.7 fL (36.4-46.3); Red Blood Count 3.84 M/uL (4.70-6.10)
[2022-09-18 07:44] LABS: Calcium 8.3 mg/dl (8.5-10.1); Creatinine Clr Calc Pharmacy 49.2 ml/min; Est GFR (African American) 47.1 ml/min; Est GFR (Non-African American) 40.6 ml/min; Magnesium 1.9 mg/dl (1.7-2.4); Phosphorus 2.9 mg/dl (2.5-4.9); Potassium 4.7 mmol/L (3.5-5.1)
[2022-09-18] MEDS: PANTOprazole 40 MG TAB PO SCH (08:21)
[2022-09-18] MEDS: METOPROLOL SUCC 25MG EXT REL TAB PO SCH (08:21)
[2022-09-18] MEDS: BENZONATATE 100 MG CAPSULE PO SCH ×3 (08:21→19:58)
[2022-09-18] MEDS: APIXABAN 5 MG TABLET PO SCH ×2 (08:21→19:56)
[2022-09-18] MEDS: ASPIRIN 81 MG ECTAB PO SCH (08:21)
[2022-09-18] MEDS: lisinopril 5 MG TAB PO SCH (08:21)
[2022-09-18] MEDS: guaiFENesin 600 MG TABCR PO SCH ×2 (09:32→19:57)
--- NOTE | 2022-09-18 11:02 | Electrocardiogram Report ---
Test Reason : Blood Pressure : / mmHG Vent. Rate : 093 BPM Atrial Rate : 093 BPM P-R Int : 188 ms QRS Dur : 124 ms QT Int : 378 ms P-R-T Axes : 053 -13 064 degrees QTc Int : 469 ms Normal sinus rhythm Right bundle branch block Abnormal ECG When compared with ECG of 17-SEP-2022 07:59, T wave inversion more evident in Anterior leads Confirmed by Rocael Mccann ([id number]) on 09/18/2022 11:02:08 AM Referred By: REFERRED SELF Confirmed By:Sandip Mccann
[2022-09-18] MEDS ORDERED: REMDESIVIR 200 MG in SODIUM CHLORIDE 0.9% 210 ML IV STA (12:36)
--- NOTE | 2022-09-18 13:27 | Hospitalist Progress Note ---
Date of Service September 18, 2022 Assessment & Plan (1) COVID-19: Plan: SIRS POA:Febrile on admission, tachycardia present. Infection due to COVID-19 virus Weakness Patient presents with weakness/illness/fever for 1 day ago [employer], cough on and off At examination, patient on room air, hemodynamically stable. Patient not vaccinated and does not wish to be vaccinated per discussion with patient's daughter. Vaccine status/month: [Patient not vaccinated] ; S/S -------- Cough/febrile illness/no change in his smell or taste sensation/no diarrhea/no decreased appetite; Tested Positive for covid: On 09/17 Admitting pro-Nikhil: 0.12 Admitting imaging: CXR reviewed; right basilar linear density favors subsegmental atelectasis/scarring Given his comorbid condition, age and vaccination status; patient has high risks of decompensation. We will start remdesivir 200 mg today, 100 mg from tomorrow. GFR greater than 30. Monitor oxygen saturation; O2 as needed to keep saturation over 92% Continue monitor on telemetry PT OT noelle ordered Follow-up on blood culture. Mild hyperkalemia:On present admission; improved . continue to monitor daily. Mild hyponatremia:Improved to 135 today Other chronic medical conditions:CAD, bilateral PE, morbid obesity, CKD stage IIIb --- resume home meds as and when able. Full code DVT prophylaxis:Patient on [facility] Admission and Anticipated Discharge Date Admission Date: September 17, 2022 Subjective Patient seen and examined at bedside. He is comfortably lying on the bed; not in distress. Reports fatigue and tiredness. Febrile to 38.9 C since admission. Review of Systems Review of Systems: All systems reviewed & are unremarkable except as noted in Subjective Physical Exam Physical Exam: Constitutional: Alert orient x3; not in any distress. Morbidly obese. Hard of hearing. Respiratory: normal respiratory effort, lungs clear to auscultation, no wheeze, rales, rhonchi. Normal insp/exp effort, no accessory muscle use Cardiovascular: RRR, no murmur, no edema Vessels: no JVD or carotid bruit Chest: normal inspection of chest Abdomen: normal bowel sounds, soft, nontender, no hepatosplenomegaly Musculoskeletal: no cyanosis or clubbing, extremities motor strength 5/5 Skin: no rashes, warm and dry normal turgor Neurologic: PERRL, EOMI, accommodation nl, no face palsy, no dysarthria CN's II- XI intact bilaterally and moves all extremities Psychiatric: A+Ox3, euthymic affect Lymphatic: no cervical or axillary lymphadenopathy : deferred Results & Data Results & Data Vital Signs (Past 12 Hours) Vital Signs Temp Pulse Pulse Resp BP BP Pulse Ox 09/18/22 12:00 09/18/22 11:55 37.5 C 81 18 126/73 93 09/18/22 09:42 09/18/22 08:14 37.2 C 95 H 18 120/77 90 09/18/22 07:13 97 H 09/18/22 03:35 37.3 C 95 H 20 125/96 95 Pulse Ox O2 Del Method O2 Del Method 09/18/22 12:00 94 Room Air 09/18/22 11:55 Room Air 09/18/22 09:42 Room Air 09/18/22 08:14 Room Air 09/18/22 07:13 09/18/22 03:35 Room Air Laboratory Results Laboratory Results WBC 5.00 K/ul (4.8-10.8) 09/18/22 06:45 RBC 3.84 M/uL (4.70-6.10) L 09/18/22 06:45 Hgb 12.7 g/dl (14.0-18.0) L 09/18/22 06:45 Hct 38.1 % (42.0-52.0) L 09/18/22 06:45 MCV 99.2 fL (80.0-100.0) 09/18/22 06:45 MCH 33.1 pg (25.0-34.0) 09/18/22 06:45 MCHC 33.3 g/dL (32.0-36.0) 09/18/22 06:45 RDW Std Deviation 48.7 fL (36.4-46.3) H 09/18/22 06:45 RDW Coeff of Mirela 13.3 % (11.5-14.5) 09/18/22 06:45 Plt Count 103 K/uL (130-400) L 09/18/22 06:45 MPV 9.0 fL (9.4-12.4) L 09/18/22 06:45 Immature Gran % (Auto) 0.2 % 09/17/22 09:13 Neut % (Auto) 86.6 % 09/17/22 09:13 Lymph % (Auto) 4.8 % 09/17/22 09:13 [place] % (Auto) 7.8 % 09/17/22 09:13 Eos % (Auto) 0.3 % 09/17/22 09:13 Baso % (Auto) 0.3 % 09/17/22 09:13 Neut # (Auto) 5.19 K/uL (1.40-6.50) 09/17/22 09:13 Lymph # (Auto) 0.29 K/uL (1.2-3.4) L 09/17/22 09:13 [place] # (Auto) 0.47 K/uL (0.11-0.59) 09/17/22 09:13 Eos # (Auto) 0.02 K/uL (0-0.50) 09/17/22 09:13 Baso # (Auto) 0.02 K/uL (0-0.2) 09/17/22 09:13 Immature Gran # (Auto) 0.01 K/uL (0.01-0.20) 09/17/22 09:13 Absolute Nucleated RBC Cancelled 09/17/22 08:13 Nucleated RBC % (auto) Cancelled 09/17/22 08:13 Neutrophils % (Manual) Cancelled 09/17/22 08:13 Band Neutrophils % Cancelled 09/17/22 08:13 Lymphocytes % (Manual) Cancelled 09/17/22 08:13 Prolymphocyte % Cancelled 09/17/22 08:13 Reactive Lymphs % (Man) Cancelled 09/17/22 08:13 Monocytes % (Manual) Cancelled 09/17/22 08:13 Eosinophils % (Manual) Cancelled 09/17/22 08:13 Basophils % (Manual) Cancelled 09/17/22 08:13 Metamyelocytes % (Man) Cancelled 09/17/22 08:13 Myelocytes % (Man) Cancelled 09/17/22 08:13 Promyelocytes % (Man) Cancelled 09/17/22 08:13 Blast Cells % (Manual) Cancelled 09/17/22 08:13 Plasma Cell % (Manual) Cancelled 09/17/22 08:13 Other Cells % Cancelled 09/17/22 08:13 Nucleated RBC % Cancelled 09/17/22 08:13 Neutrophils # (Manual) Cancelled 09/17/22 08:13 Band Neutrophils # Cancelled 09/17/22 08:13 Total Absolute Neuts Cancelled 09/17/22 08:13 Lymphocytes # (Manual) Cancelled 09/17/22 08:13 Prolymphocyte # Cancelled 09/17/22 08:13 Reactive Lymphs # Cancelled 09/17/22 08:13 Total Abs Lymphocytes Cancelled 09/17/22 08:13 Monocytes # (Manual) Cancelled 09/17/22 08:13 Eosinophils # (Manual) Cancelled 09/17/22 08:13 Basophils # (Manual) Cancelled 09/17/22 08:13 Metamyelocytes # (Man) Cancelled 09/17/22 08:13 Myelocytes # (Manual) Cancelled 09/17/22 08:13 Promyelocytes # (Man) Cancelled 09/17/22 08:13 Blast Cells # (Man) Cancelled 09/17/22 08:13 Plasma Cell # (Manual) Cancelled 09/17/22 08:13 Other Cells # Cancelled 09/17/22 08:13 Nucleated RBCs # (Man) Cancelled 09/17/22 08:13 Hypersegmented Neuts Cancelled 09/17/22 08:13 Hyposegmented Neuts Cancelled 09/17/22 08:13 Hypogranular Neuts Cancelled 09/17/22 08:13 Large Granular Lymphs Cancelled 09/17/22 08:13 # Lrg Granular Lymphs Cancelled 09/17/22 08:13 Hairy Cells Cancelled 09/17/22 08:13 Smudge Cells Cancelled 09/17/22 08:13 Toxic Granulation Cancelled 09/17/22 08:13 Toxic Vacuolation Cancelled 09/17/22 08:13 Dohle Bodies Cancelled 09/17/22 08:13 Luis Rods Cancelled 09/17/22 08:13 Platelet Estimate Cancelled 09/17/22 08:13 Hypogranular Platelets Cancelled 09/17/22 08:13 Giant Platelets Cancelled 09/17/22 08:13 Platelet Satelliting Cancelled 09/17/22 08:13 RBC Morphology Cancelled 09/17/22 08:13 Polychromasia Cancelled 09/17/22 08:13 Hypochromasia Cancelled 09/17/22 08:13 Poikilocytosis Cancelled 09/17/22 08:13 Basophilic Stippling Cancelled 09/17/22 08:13 Anisocytosis Cancelled 09/17/22 08:13 Microcytosis Cancelled 09/17/22 08:13 Macrocytosis Cancelled 09/17/22 08:13 Spherocytes Cancelled 09/17/22 08:13 Pappenheimer Bodies Cancelled 09/17/22 08:13 Sickle Cells Cancelled 09/17/22 08:13 Target Cells Cancelled 09/17/22 08:13 Tear Drop Cells Cancelled 09/17/22 08:13 Ovalocytes Cancelled 09/17/22 08:13 Stomatocytes Cancelled 09/17/22 08:13 [place] Bodies Cancelled 09/17/22 08:13 Echinocytes Cancelled 09/17/22 08:13 Acanthocytes (Spur) Cancelled 09/17/22 08:13 Rouleaux Cancelled 09/17/22 08:13 RBC Agglutinates Cancelled 09/17/22 08:13 Schistocytes Cancelled 09/17/22 08:13 Sezary Cell Cancelled 09/17/22 08:13 Sodium 135 mmol/L (136-145) L 09/18/22 06:45 Potassium 4.7 mmol/L (3.5-5.1) 09/18/22 06:45 Chloride 105 mmol/L (98-107) 09/18/22 06:45 Carbon Dioxide 24 mmol/L (21-32) 09/18/22 06:45 Anion Gap 6 (3-11) 09/18/22 06:45 BUN 21 mg/dl (6-23) 09/18/22 06:45 Creatinine 1.61 mg/dl (0.6-1.4) H 09/18/22 06:45 Est Cr Clr Drug Dosing 49.2 ml/min 09/18/22 06:45 Est GFR ( Amer) 47.1 ml/min 09/18/22 06:45 Est GFR (Non-Af Amer) 40.6 ml/min 09/18/22 06:45 BUN/Creatinine Ratio 13.0 (10-20) 09/18/22 06:45 Glucose 91 mg/dl (70-99(Fasting)) 09/18/22 06:45 Lactate 1.1 mmol/L (0.4-2.0) 09/17/22 08:15 Calcium 8.3 mg/dl (8.5-10.1) L 09/18/22 06:45 Phosphorus 2.9 mg/dl (2.5-4.9) 09/18/22 06:45 Magnesium 1.9 mg/dl (1.7-2.4) 09/18/22 06:45 Total Bilirubin 0.7 mg/dl (0.2-1.0) 09/17/22 08:13 Direct Bilirubin 0.2 mg/dl (0-0.2) 09/17/22 09:13 AST 49 U/L (13-39) H 09/17/22 08:13 ALT 27 U/L (7-52) 09/17/22 08:13 Alkaline Phosphatase 53 U/L (34-104) 09/17/22 08:13 Troponin I High Sens 8.4 pg/ml (0-20) 09/17/22 08:13 B-Natriuretic Peptide 49 pg/ml (0-100) 09/17/22 13:00 Total Protein 7.2 gm/dl (6.0-8.3) 09/17/22 08:13 Albumin 4.1 gm/dl (3.4-5.0) 09/17/22 08:13 Procalcitonin 0.12 ng/ml (0-0.5) 09/17/22 08:13 Urine Color Yellow 09/17/22 Unknown Urine Appearance Clear (Clear) 09/17/22 Unknown Urine pH 5.5 (4.5-7.5) 09/17/22 Unknown Ur Specific [place] 1.020 (1.000-1.030) 09/17/22 Unknown Urine Protein 1+ (Negative) H 09/17/22 Unknown Urine Glucose (UA) Negative (Negative) 09/17/22 Unknown Urine Ketones Trace (Negative) H 09/17/22 Unknown Urine Blood 1+ (Negative) H 09/17/22 Unknown Urine Nitrite Negative (Negative) 09/17/22 Unknown Urine Bilirubin Negative (Negative) 09/17/22 Unknown Urine Urobilinogen Negative (Negative) 09/17/22 Unknown Ur Leukocyte Esterase Negative (Negative) 09/17/22 Unknown Urine WBC (Auto) 1-5 /hpf (0-5) 09/17/22 Unknown Urine RBC (Auto) 5-10 /hpf (0-4) H 09/17/22 Unknown U Hyaline Cast (Auto) 1-5 /lpf (0-5) 09/17/22 Unknown U Epithel Cells (Auto) 5-10 /lpf (0-5) H 09/17/22 Unknown Urine Bacteria (Auto) Negative (Negative) 09/17/22 Unknown SARS-CoV-2 (PCR) POSITIVE (Negative) A* 09/17/22 07:50 Influenza Type A (PCR) Negative (Neg) 09/17/22 07:50 Influenza Type B (PCR) Negative (Neg) 09/17/22 07:50 RSV (RT-PCR) Negative (Neg) 09/17/22 07:50 Blood Parasites ID Cancelled 09/17/22 08:13 Impressions Chest X-Ray 09/17/22 07:38 XR chest 1V portable HISTORY: Sepsis COMPARISON: Chest 06/25/2019. FINDINGS: The heart remains enlarged. Right basilar linear densities favor [place] santos bsegmental atelectasis or scarring. This remains unchanged. Right lung volume loss and elevation the right hemidiaphragm persists. No new focal lung consolidations to suggest a pneumonia. No evidence for pulmonary edema. There are poststernotomy changes. IMPRESSION: No significant change compared to the prior study. No acute process. ACT 112: Negative or not required by law. Electronically signed by: Gabe Olsen M.D. 09/17/2022 8:30 AM
[2022-09-18] MEDS: GLUCOSAMINE SULFATE 500 MG CAP PO SCH (19:57)
[2022-09-18] MEDS: ROSUVASTATIN CALCIUM 20 MG TAB PO SCH (19:57)
[2022-09-19] MEDS: guaiFENesin 600 MG TABCR PO SCH (08:36)
[2022-09-19] MEDS: PANTOprazole 40 MG TAB PO SCH (08:36)
[2022-09-19] MEDS: APIXABAN 5 MG TABLET PO SCH (08:36)
[2022-09-19] MEDS: lisinopril 5 MG TAB PO SCH (08:36)
[2022-09-19] MEDS: BENZONATATE 100 MG CAPSULE PO SCH (08:37)
[2022-09-19] MEDS: METOPROLOL SUCC 25MG EXT REL TAB PO SCH (08:37)
[2022-09-19] MEDS: ASPIRIN 81 MG ECTAB PO SCH (08:37)
[2022-09-19 08:55] LABS: Basophils # (auto) 0.03 K/uL (0-0.2); Basophils % (auto) 0.7 %; Eosinophils # (auto) 0.08 K/uL (0-0.50); Eosinophils % (auto) 1.7 %; Hematocrit (blood only) 40.9 % (42.0-52.0); Hemoglobin 13.5 g/dl (14.0-18.0); Immature Granulocytes # (auto) 0.01 K/uL (0.01-0.20); Immature Granulocytes % (auto) 0.2 %; Lymphocytes # (auto) 1.15 K/uL (1.2-3.4); Lymphocytes % (auto) 25.1 %; Mean Corpuscular Hemoglobin 32.6 pg (25.0-34.0); Mean Corpuscular Volume 98.8 fL (80.0-100.0); Mean Platelet Volume 9.2 fL (9.4-12.4); Monocytes # (auto) 0.45 K/uL (0.11-0.59); Monocytes % (auto) 9.8 %; Neutrophils # (auto) 2.86 K/uL (1.40-6.50); Neutrophils % (auto) 62.5 %; Platelet Count 113 K/uL (130-400); RDW Coefficient of Variation 13.7 % (11.5-14.5); RDW Standard Deviation 49.9 fL (36.4-46.3); Red Blood Count 4.14 M/uL (4.70-6.10); White Blood Count 4.58 K/ul (4.8-10.8)
[2022-09-19 09:26] LABS: Albumin Globulin Ratio 1.3 (0.9-2); Albumin Level 3.7 gm/dl (3.4-5.0); BUN Creatinine Ratio 17.9 (10-20); Bilirubin,Total 0.5 mg/dl (0.2-1.0); Calcium 8.8 mg/dl (8.5-10.1); Creatinine Clr Calc Pharmacy 47.1 ml/min; Est GFR (African American) 44.7 ml/min; Est GFR (Non-African American) 38.6 ml/min; Globulin 2.9 gm/dl (2.5-4.0); Potassium 4.9 mmol/L (3.5-5.1); Total Protein 6.6 gm/dl (6.0-8.3)
--- NOTE | 2022-09-19 11:00 | Electrocardiogram Report ---
Test Reason : Blood Pressure : / mmHG Vent. Rate : 068 BPM Atrial Rate : 068 BPM P-R Int : 202 ms QRS Dur : 132 ms QT Int : 430 ms P-R-T Axes : 066 -12 054 degrees QTc Int : 457 ms Normal sinus rhythm Right bundle branch block Abnormal ECG When compared with ECG of 18-SEP-2022 06:14, T wave inversion less evident in Anterior leads Confirmed by Rocael Mccann ([id number]) on 09/19/2022 10:59:42 AM Referred By: REFERRED SELF Confirmed By:Sandip Mccann
[2022-09-19] MEDS ORDERED: REMDESIVIR 100 MG in SODIUM CHLORIDE 0.9% 230 ML IV SCH (12:00)
--- NOTE | 2022-09-19 14:26 | Discharge Summary ---
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 Patient reports being ill, weak, dizzy associated with fever [maximum measured at [id number]], is very hard of hearing and hence most of the history was taken from the chart review and are from his daughter. Patient did deny any discomfort or pain or chest pain or diarrhea. Patient did report " I started to feel better now" during my bedside exam. Family not aware if he is bringing up any sputum with the cough, has been coughing on and off. There has been no reports of nausea or vomiting, appetite has been good, no reports of diarrhea. Personal history is positive for blood clot April last year, negative for cancer or [place]. Family history is negative for cancer or [place] or stroke. Patient does not smoke tobacco/use alcohol or recreational drugs. Full code as per my discussion with patient's daughter. He does not have living will as per her. Medications discussed with patient's daughter. Plan of care discussed with patient and his daughter. Admission Exam Per Admitting Provider GENERAL: Alert and oriented x3. NAD, on RA. Appears ill/weak. Very Hard of Hearing. Morbidly obese. HEENT: No pallor, no icterus. Pupils equal, round and reactive to light. Oral mucosa moist. NECK: No JVD, no neck masses. HEART: S1 and S2 heard. Regular rate and rhythm. No murmur, no gallop. RESPIRATORY SYSTEM: Normal AP diameter. No accessory muscle use. No wheezing, no crackles. ABDOMEN: Soft, bowel sounds present, nontender, no distention. CENTRAL NERVOUS SYSTEM: No facial droop. Speech is clear. Obeys simple commands. Moves extremities. EXTREMITIES: No edema, no erythema seen. Principal Diagnosis COVID-19 infection Discharge Exam Constitutional: Alert orient x3; not in any distress. Morbidly obese. Hard of hearing. Respiratory: normal respiratory effort, lungs clear to auscultation, no wheeze, rales, rhonchi. Normal insp/exp effort, no accessory muscle use Cardiovascular: RRR, no murmur, no edema Vessels: no JVD or carotid bruit Chest: normal inspection of chest Abdomen: normal bowel sounds, soft, nontender, no hepatosplenomegaly Musculoskeletal: no cyanosis or clubbing, extremities motor strength 5/5 Skin: no rashes, warm and dry normal turgor Neurologic: PERRL, EOMI, accommodation nl, no face palsy, no dysarthria CN's II- XI intact bilaterally and moves all extremities Psychiatric: A+Ox3, euthymic affect Lymphatic: no cervical or axillary lymphadenopathy : deferred Discharge Data Allergies Allergy/AdvReac Type Severity Reaction Status Date / Time No Known Allergies Allergy Unverified 09/17/22 09:27 Consultations 09/17/22 11:08 ED Decision to Admit Stat Hospital Course (1) COVID-19: SIRS POA:Febrile on admission, tachycardia present. 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 Patient not vaccinated and does not wish to be vaccinated per discussion with patient's daughter. Patient not vaccinated; S/S -------- Cough/febrile illness/no change in his smell or taste sensation/no diarrhea/no decreased appetite; Tested Positive for covid: On 09/17 Admitting pro-Nikhil: 0.12 Admitting imaging: CXR reviewed; right basilar linear density favors subsegmental atelectasis/scarring Given his comorbid condition, age and vaccination status; patient was at high risks of decompensation. Patient was given remdesivir for 2 days. He was monitored in the hospital for 48 hours; did not require supplemental oxygen. He was afebrile for last 24 hours. He was discharged home with his family. Outpatient follow-up with his primary care doctor was made. All the medication resumed as previously. Total Time Total Time Spent Total Time Spent (In Minutes): 35 Total Time Includes: Examination of the Patient, Discharge Planning, Medication Reconciliation, Communication With Other Providers and Other Discharge Plan Discharge Items Patient Disposition: Home - Self-Care Reason For Visit: WEAKNESS Discharge Diagnosis: Covid 19 infection Activity: Resume your previous activity Non-emergency contact: Primary Care Provider Call non-emergency contact if: you have any medication questions and your symp toms worsen Follow-up/Referrals: Hipolito Coates MD [Primary Care Provider] - (Date & Time 09/22/2022 3:20 PM Provider Hipolito Coates MD Department Family [facility] ) Diet: Regular Addtl Attending Provider Instructions: You were admitted to the hospital with COVID-19 infection. Your oxygen level was monitored during the hospitalization. Chest x-ray did not show any pneumonia. Pending Studies at Discharge: No Stand-Alone Forms: My [facility], Smoking Cessation Medications and DC Order Prescriptions: Continued garlic 500 mg Capsule 500 mg PO BID glucosamine sulfate 500 mg Capsule 500 mg PO HS omega 9-epx-ude-fish oil [Fish Oil] 1,000 mg (120 mg-180 mg) Capsule 1 cap PO BID metoprolol succinate 50 mg tablet extended release 24 hr 25 mg PO QAM omeprazole 20 mg capsule,delayed release(DR/EC) 20 mg PO QAM lisinopril 5 mg tablet 5 mg PO QAM rosuvastatin 40 mg tablet 40 mg PO HS acetaminophen 500 mg Tablet 500 mg PO QID PRN (Reason: Pain) aspirin 81 mg Tablet,Chewable 81 mg PO QAM Eliquis 5 mg tablet 5 mg PO BID Discharge Orders: Discharge Order (Routine); Ordered 09/19/22 Ordered By: Sheldon Braun Admission Data Admit Date/Time: 09/17/22 11:36 Attending Provider: Sheldon Braun Admit Provider: Bakari Arzola Primary Care Provider: Hipolito Coates Other Providers: Bakari Arzola Other Interventions: Discharge Summary Assessment (RN) Last Done: 09/19/22 12:59
--- NOTE | 2022-09-21 11:14 | Coding Query ---
SEPSIS To promote full compliance with coding requirements relating to patient care, physician participation is requested in all cases of contract implementation analyst uncertainty. Please assist us with the question(s) below: In responding to this query, please exercise your independent professional judgement. The fact that a question is asked does not imply that any particular answer is desired or expected. We appreciate your clarification on this issue. The medical record reflects the following clinical findings: Pt admitted with COVID, Remdesivir given. DS,H/P and progress notes document SIRS, POA. Please check the appropriate response below , if applicable. Thanks for your help. Hammad Farley [facility] ____ ( )Bacteremia (Nonspecific laboratory finding of bacteria in the blood) Specify Organism ( ) Present on Admission ( ) Not present on admission ( ) Unable to clinically determine ( ) Septicemia (Systemic disease associated with the presence of pathogenic microorganisms in the blood): Specify Organism ( ) Present on Admission ( ) Not present on admission ( ) Unable to clinically determine ( ) Sepsis Specify Organism Specify Associated Condition/Diagnosis ( ) Present on Admission ( ) Not present on admission ( ) Unable to clinically determine ( ) Severe Sepsis (Sepsis associated with acute organ dysfunction) Specify Organism Specify Associated Condition/Diagnosis ( ) Present on Admission ( ) Not present on admission ( ) Unable to clinically determine ( ) Septic Shock (Severe sepsis with acute circulatory failure, unexplained by other causes) ( ) Present on Admission ( ) Not present on admission ( ) Unable to clinically determine ( ) Other, patient has: Covid 19 Infection. MTDD
== END 2022-09-19 13:58 | disposition home or self-care (01) | DRG 178 ==
LOC: ED 07:15 → 2N 11:36 → SUATTDRO 11:36 → 2N 14:44

== ENCOUNTER 2024-06-27 16:23 | Inpatient (IN) ==
--- NOTE | 2024-06-27 16:35 | Emergency Department Note ---
Impression & Plan Weakness, Influenza A ED Provider Note Provider: Jovany Singh MD CHIEF COMPLAINT: Weak and shaking with cough HISTORY OF PRESENT ILLNESS: Patient is a 78-year-old gentleman history of CKD, PE on Eliquis, CAD, GERD, and hypertension presenting here today reporting for the past 2 days he has had cough. Has been a bit weaker and experience some shaking and ambulance was called and is brought here for further evaluation. Patient himself is very hard of hearing. Denies nausea vomiting or diarrhea. Little bit of a sore throat. Denies significant shortness of breath to me. Again reports some diffuse myalgias. No falls reported. PAST MEDICAL HISTORY: As noted above MEDICATIONS: Reviewed home medications includes Eliquis SOCIAL HISTORY: Lives at home with daughters PHYSICAL EXAM: GENERAL: alert and oriented in no acute distress on stretcher very hard of hearing Head: normocephalic and atraumatic EYES: No injection, discharge or icterus. PERRL, EOMI. NECK: Trachea midline. Supple. ENT: Mucous membranes pink and moist. Pharynx without erythema or exudate. LUNGS: Airway patent. No retractions. Breath sounds clear HEART: Regular rate and rhythm. No chest wall tenderness ABDOMEN: Soft and non-tender, without guarding or rebound. SKIN: Acyanotic, warm, dry, without rashes EXTREMITIES: Without tenderness or deformity with trace bilateral lower extremity edema. NEUROLOGICAL: No focal deficits. No aphasia. No facial droop or slurred speech. Ambulatory. EK bpm sinus rhythm first degree block. Right bundle branch block, left axis. No acute ST segment elevation. Some nonspecific anterior T wave inversions. CONTINUOUS CARDIAC MONITORING: was ordered and showed a heart rate of 80s to 90s bpm in sinus rhythm first-degree heart block Patient's laboratory studies and imaging reviewed. Differential includes Infection, dehydration, metabolic abnormality, hypo/hyperglycemia, electrolyte disturbance, anemia, hypoxia, cardiac sources, intracerebral event, toxicologic, neurologic, as well as other pathologies. IMPRESSION/MEDICAL DECISION MAKING: Patient with myalgias and cough and sore throat. Given the high propensity of upper respiratory infections currently respiratory viral panel sent. Not initially hypoxic here. Is somewhat hypertensive. No syncope or trauma reported. Basic blood work sent. EKG without significant arrhythmia. No significant cytosis or anemia. Normal electrolytes. Chronic CKD. No transaminitis or elevated CK or troponin. X-ray question some bibasilar patchy findings. Respiratory viral panel returns positive for influenza A. Likely explains his symptoms. Given first dose of Tamiflu here. Discussed with the patient had chest x-ray findings in the setting of a normal white blood cell count and procalcitonin likely more viral in nature. Discussed with patient and daughter at bedside. She is concerned about his weakness and he was weak today and shaking and from the bathroom. He did not fall but she is concerned this will happen at home and does not feel he do well at home. She is concerned about his intake. Does not seem significantly dehydrated on my assessment. In shared decision making we will have the hospitalist evaluate for observation with his flu symptoms. DIAGNOSIS: Weakness, influenza A DISPOSITION: Hospitalist will evaluate Patient was agreeable with this plan. Past Med/Surg History Problem List History of pulmonary embolism Ambulatory dysfunction Influenza A (Acute) Weakness (Acute) Fever (Acute) Generalized muscle weakness (Acute) Abdominal aortic aneurysm (Acute) Left anterior fascicular block Right bundle branch block (Acute) CKD (chronic kidney disease), stage III Hypertension Hypercholesteremia GERD (gastroesophageal reflux disease) CAD (coronary artery disease) Obesity Pulmonary embolism, bilateral (Acute) Chronic kidney disease (Acute) Medical History COVID-19 Osteoarthritis of knee Surgical History H/O umbilical hernia repair H/O heart bypass surgery Family History Other Cancer Diabetes Heart disease Social History (Updated 06/27/24 @ 19:38 by Bren Spaulding PA-C) Smoking Status: Never smoker Second Hand Exposure: No; Do You Dip or Chew Tobacco: No; Hx Alcohol Use: No (unknown) Hx Substance Use: No (unknown) Preferred Language: Ethiopian Communication Ability: Effective Film Crew Member Required: No Beliefs That Will Affect Care: None marital status: Current Living Situation: Spouse Current Living Situation Comment: Per they live in a 2 story house and 2 adult daughters live with them Feels Safe at Home: Yes Assistive Devices: Cane Allergies Allergies Allergy/AdvReac Type Severity Reaction Status Date / Time No Known Allergies Allergy Unverified 06/27/24 18:32 Home Meds Home Medications Medication Instructions Recorded Confirmed lisinopril 5 mg tablet 5 mg PO QAM 06/25/19 06/27/24 metoprolol succinate 50 mg 25 mg PO QAM 06/25/19 06/27/24 tablet,extended release 24 hr omeprazole 20 mg capsule,delayed 20 mg PO QAM 06/25/19 06/27/24 release rosuvastatin 40 mg tablet 40 mg PO QAM 06/25/19 06/27/24 garlic 500 mg capsule 500 mg PO BID 12/23/19 06/27/24 glucosamine sulfate 500 mg capsule 500 mg PO HS 12/23/19 06/27/24 omega 5-xqh-txs-fish oil 1,000 mg 1 cap PO BID 12/23/19 06/27/24 (120 mg-180 mg) capsule (Fish Oil) apixaban 5 mg tablet (Eliquis) 5 mg PO AMHS 09/17/22 06/27/24 aspirin 81 mg tablet,delayed 81 mg PO DAILY 06/27/24 06/27/24 release cyanocobalamin (vitamin B-12) 1,000 mcg PO DAILY 06/27/24 06/27/24 1,000 mcg tablet tramadol 50 mg tablet 50 mg PO Q6 PRN pain,severe 06/27/24 06/27/24 Results & Data (ED) Vital Signs Vital Signs - 24 hr 06/27/24 16:33 06/27/24 16:33 06/27/24 16:33 Temperature 36.9 C 36.9 C Temperature Source Oral Oral Pulse Rate 100 H 98 H Pulse Rate [Apical] 100 H Pulse Rhythm Regular Pulse Rhythm [Apical] Regular Pulse Strength Normal Pulse Strength [Apical] Normal Respiratory Rate 20 20 Respiratory Effort / Characteristics Non-Labored Spontaneous Non-Labored Spontaneous Respiratory Depth Normal Normal Respiratory Pattern Regular Regular Blood Pressure 164/86 H Blood Pressure [Right Arm] 164/86 H Blood Pressure Mean 112 Blood Pressure Mean [Right Arm] 112 Blood Pressure Position Semi-fowlers Blood Pressure Position [Right Arm] Semi-fowlers Pulse Oximetry 93 93 Oxygen Delivery Method Room Air Room Air Oxygen Flow Rate Sepsis Recent Fever Within 48 Hours No Sepsis New/Unexplained Change in Mental Status N/A Sepsis Action Taken by Nursing No Action Required 06/27/24 17:12 06/27/24 18:21 Temperature Temperature Source Pulse Rate Pulse Rate [Apical] 100 H 101 H Pulse Rhythm Pulse Rhythm [Apical] Regular Pulse Strength Pulse Strength [Apical] Respiratory Rate 20 22 Respiratory Effort / Characteristics Non-Labored Spontaneous Respiratory Depth Normal Normal Respiratory Pattern Regular Blood Pressure Blood Pressure [Right Arm] 120/74 157/102 H Blood Pressure Mean Blood Pressure Mean [Right Arm] 89 120 Blood Pressure Position Blood Pressure Position [Right Arm] Pulse Oximetry 91 99 Oxygen Delivery Method Room Air Nasal Cannula Oxygen Flow Rate 2 Sepsis Recent Fever Within 48 Hours Sepsis New/Unexplained Change in Mental Status Sepsis Action Taken by Nursing Laboratory Data 06/27/24 16:38 06/27/24 16:38 Lab Results 06/27/24 06/27/24 06/27/24 Range/Units 15:29 16:38 18:10 WBC 5.56 (4.8-10.8) K/ul RBC 4.23 L (4.70-6.10) M/uL Hgb 13.8 L (14.0-18.0) g/dl Hct 41.4 L (42.0-52.0) % MCV 97.9 (80.0-100.0) fL MCH 32.6 (25.0-34.0) pg MCHC 33.3 (32.0-36.0) g/dL RDW Std Deviation 47.8 H (36.4-46.3) fL RDW Coeff of Mirela 13.3 (11.5-14.5) % Plt Count 120 L (130-400) K/uL MPV 9.1 L (9.4-12.4) fL Immature Gran % (Auto) 0.2 % Neut % (Auto) 74.9 % Lymph % (Auto) 12.2 % [place] % (Auto) 10.8 % Eos % (Auto) 1.4 % Baso % (Auto) 0.5 % Neut # (Auto) 4.16 (1.40-6.50) K/uL Lymph # (Auto) 0.68 L (1.20-3.40) K/uL [place] # (Auto) 0.60 H (0.11-0.59) K/uL Eos # (Auto) 0.08 (0.00-0.50) K/uL Baso # (Auto) 0.03 (0.00-0.20) K/uL Immature Gran # (Auto) 0.01 (0.01-0.20) K/uL PT 10.7 (9.0-12.0) Seconds INR 1.0 (0.9-1.1) Sodium 138 (136-145) mmol/L Potassium 4.6 (3.5-5.1) mmol/L Chloride 104 (98-107) mmol/L Carbon Dioxide 27 (21-32) mmol/L Anion Gap 7 (3-11) BUN 24 H (6-23) mg/dl Creatinine 1.80 H (0.6-1.4) mg/dl Est Cr Clr Drug Dosing 44.3 ml/min eGFR 37.82 BUN/Creatinine Ratio 13.3 (10-20) Glucose 102 H (70-99(Fasting)) mg/dl Calcium 9.0 (8.6-10.3) mg/dl Magnesium 1.9 (1.7-2.4) mg/dl Total Bilirubin 0.6 (0.2-1.0) mg/dl AST 29 (13-39) U/L ALT 17 (7-52) U/L Alkaline Phosphatase 48 (34-104) U/L Total Creatine Kinase 160 (30-223) U/L Troponin I High Sens 9.0 (0-20) pg/ml Total Protein 7.1 (6.0-8.3) gm/dl Albumin 4.1 (3.4-5.0) gm/dl Globulin 3.0 (2.5-4.0) gm/dl Albumin/Globulin Ratio 1.4 (0.9-2) Procalcitonin 0.11 (0-0.5) ng/ml TSH 0.923 (0.300-4.500) uIu/ml Urine Color Yellow Urine Appearance Clear (Clear) Urine pH 6.5 (4.5-7.5) Ur Specific [place] 1.016 (1.000-1.030) Urine Protein 2+ H (Negative) Urine Glucose (UA) Negative (Negative) Urine Ketones Trace H (Negative) Urine Blood 1+ H (Negative) Urine Nitrite Negative (Negative) Urine Bilirubin Negative (Negative) Urine Urobilinogen Positive H (Negative) Ur Leukocyte Esterase Negative (Negative) Urine WBC (Auto) 0-5 (0-5) /hpf Urine RBC (Auto) 3-5 H (0-2) /hpf U Hyaline Cast (Auto) 0-2 (0-2) /lpf U Epithel Cells (Auto) 0-2 (0-2) /hpf Urine Bacteria (Auto) None Seen (None Seen) Adenovirus (PCR) Not Detected (NotDetected) B. pertussis DNA (PCR) Not Detected (NotDetected) B.parapertussis DNA PCR Not Detected (NotDetected) C. pneumoniae DNA (PCR) Not Detected (NotDetected) Coronavirus OC43 (PCR) Not Detected (NotDetected) Coronavirus HKU1 (PCR) Not Detected (NotDetected) Coronavirus 229E (PCR) Not Detected (NotDetected) SARS-CoV-2 (PCR) Not Detected (NotDetected) Coronavirus NL63 (PCR) Not Detected (NotDetected) Human Metapneumovir PCR Not Detected (NotDetected) Influenza A (H3) PCR DETECTED A (NotDetected) Influenza Type B (PCR) Not Detected (NotDetected) M. pneumoniae (PCR) Not Detected (NotDetected) Parainfluenza 1 (PCR) Not Detected (NotDetected) Parainfluenza 2 (PCR) Not Detected (NotDetected) Parainfluenza 3 (PCR) Not Detected (NotDetected) Parainfluenza 4 (PCR) Not Detected (NotDetected) RSV (PCR) Not Detected (NotDetected) Entero/Rhino (PCR) Not Detected (NotDetected) Administered Medications Discontinued Medications Oseltamivir Phosphate (Oseltamivir Phosphate 75 Mg Cap) 75 mg PO NOW STA; Protocol Stop: 06/27/24 17:47 Last Admin: 06/27/24 18:08 Dose: 75 mg Documented By: NA Imaging Data Radiologist's Impression: Chest X-Ray 06/27/24 16:34 EXAM: Radiograph of the Chest 1 View INDICATION: Weakness. TECHNIQUE: Frontal view of the chest. COMPARISON: 09/17/2022 FINDINGS: Lungs and pleural spaces: Stable patchy basilar airspace disease right greater than left. No pleural effusion or pneumothorax. Heart: Stable prominent cardiac shadow. Mediastinum: Normal contour. Bones/joints: Metallic anchors in the right humerus. Soft tissues: No abnormality noted. No radiopaque foreign body noted. Upper abdomen: No abnormality noted. IMPRESSION: Stable patchy basilar airspace disease right greater than left. ACT 112: Negative or not required by law. Electronically signed by Shireen Gonzalez 06-27-2024 5:00 PM Discharge Plan Visit Data Chief Complaint: Illness Stated Complaint: ILLNESS ED Provider: Jovany Singh Discharge Problem: Weakness, Influenza A Patient Disposition: Admitted As Inpatient Discharge Instructions Interventions: ED Discharge Assessment Last Done: 06/27/24 19:57
[2024-06-27 16:58] LABS: Basophils # (auto) 0.03 K/uL (0.00-0.20); Basophils % (auto) 0.5 %; Eosinophils # (auto) 0.08 K/uL (0.00-0.50); Eosinophils % (auto) 1.4 %; Hematocrit (blood only) 41.4 % (42.0-52.0); Hemoglobin 13.8 g/dl (14.0-18.0); Immature Granulocytes # (auto) 0.01 K/uL (0.01-0.20); Immature Granulocytes % (auto) 0.2 %; Lymphocytes # (auto) 0.68 K/uL (1.20-3.40); Lymphocytes % (auto) 12.2 %; Mean Corpuscular Hemoglobin 32.6 pg (25.0-34.0); Mean Corpuscular Hgb Conc 33.3 g/dL (32.0-36.0); Mean Corpuscular Volume 97.9 fL (80.0-100.0); Mean Platelet Volume 9.1 fL (9.4-12.4); Monocytes % (auto) 10.8 %; Neutrophils # (auto) 4.16 K/uL (1.40-6.50); Neutrophils % (auto) 74.9 %; Platelet Count 120 K/uL (130-400); RDW Coefficient of Variation 13.3 % (11.5-14.5); RDW Standard Deviation 47.8 fL (36.4-46.3); Red Blood Count 4.23 M/uL (4.70-6.10); White Blood Count 5.56 K/ul (4.8-10.8)
--- NOTE | 2024-06-27 17:01 | XRay Report ---
EXAM: Radiograph of the Chest 1 View INDICATION: Weakness. TECHNIQUE: Frontal view of the chest. COMPARISON: 09/17/2022 FINDINGS: Lungs and pleural spaces: Stable patchy basilar airspace disease right greater than left. No pleural effusion or pneumothorax. Heart: Stable prominent cardiac shadow. Mediastinum: Normal contour. Bones/joints: Metallic anchors in the right humerus. Soft tissues: No abnormality noted. No radiopaque foreign body noted. Upper abdomen: No abnormality noted. IMPRESSION: Stable patchy basilar airspace disease right greater than left. ACT 112: Negative or not required by law. Electronically signed by Shireen Gonzalez 06-27-2024 5:00 PM
[2024-06-27 17:13] LABS: Albumin Globulin Ratio 1.4 (0.9-2); Albumin Level 4.1 gm/dl (3.4-5.0); BUN Creatinine Ratio 13.3 (10-20); Bilirubin,Total 0.6 mg/dl (0.2-1.0); Creatinine Clr Calc Pharmacy 44.3 ml/min; Magnesium 1.9 mg/dl (1.7-2.4); Potassium 4.6 mmol/L (3.5-5.1); Total Protein 7.1 gm/dl (6.0-8.3)
[2024-06-27 17:29] LABS: Prothrombin Time 10.7 Seconds (9.0-12.0); Thyroid Stimulating Hormone 0.923 uIu/ml (0.300-4.500)
[2024-06-27 17:39] LABS: Adenovirus PCR Not Detected (NotDetected); Bordetella parapertussis PCR Not Detected (NotDetected); Bordetella pertussis PCR Not Detected (NotDetected); Chlamydia pneumoniae PCR Not Detected (NotDetected); Coronavirus 229E PCR Not Detected (NotDetected); Coronavirus CoV-2 (COVID19)PCR Not Detected (NotDetected); Coronavirus HKU1 PCR Not Detected (NotDetected); Coronavirus NL63 PCR Not Detected (NotDetected); Coronavirus OC43PCR Not Detected (NotDetected); Human Metapneumovirus PCR Not Detected (NotDetected); Influenza A (H3) PCR DETECTED (NotDetected); Influenza B PCR Not Detected (NotDetected); Mycoplasma pneumoniae PCR Not Detected (NotDetected); Parainfluenza Virus 1 PCR Not Detected (NotDetected); Parainfluenza Virus 2 PCR Not Detected (NotDetected); Parainfluenza Virus 3 PCR Not Detected (NotDetected); Parainfluenza Virus 4 PCR Not Detected (NotDetected); Respiratory Syncytial VirusPCR Not Detected (NotDetected); Rhinovirus/Enterovirus PCR Not Detected (NotDetected)
[2024-06-27] MEDS: OSELTAMIVIR PHOSPHATE 75 MG CAP PO STA (18:08)
[2024-06-27 18:24] LABS: Appearance Urine Clear (Clear); Bacteria Urine Automated None Seen (None Seen); Bilirubin Urine Negative (Negative); Blood Urine 1+ (Negative); Cast Urine Automated 0-2 /lpf (0-2); Color Urine Yellow; Epithelial Cell Urine Auto 0-2 /hpf (0-2); Glucose Urine UA Negative (Negative); Ketones Urine Trace (Negative); Leukocyte Esterase Urine Negative (Negative); Nitrite Urine Negative (Negative); Protein Urine 2+ (Negative); Specific Gravity Urine 1.016 (1.000-1.030); Urobilinogen Urine Positive (Negative); WBC Urine Automated 0-5 /hpf (0-5); pH Urine 6.5 (4.5-7.5)
--- NOTE | 2024-06-27 18:46 | History & Physical Report ---
Date of Service June 27, 2024 Assessment & Plan (1) Influenza A: (2) Weakness: (3) Ambulatory dysfunction: Plan: Patient is 78 year old male with PMH HTN, dyslipidemia, CKD III, CAD s/p CABG, RBBB, left anterior fascicular block, GERD, obesity, AAA, PE presented to ER with c/o cough, myalgias, chills and generalized weakness x 2 days. In ER afebrile, P: 100, R: 20, BP 164/86, 93% on room air + Influenza A PCR on respiratory BioFire panel CXR: Stable patchy bilateral airspace disease right greater than left Procalcitonin: 0.1. No leukocytosis In ER given Tamiflu Isolation precautions Give 500 mL NSS bolus Continue Tamiflu, renally dosed Supplemental oxygen as needed Mucinex Incentive spirometry Generalized weakness likely secondary to underlying infection with influenza Fall precautions PT/OT eval CBC, BMP in am (4) CKD (chronic kidney disease), stage III: Plan: Cr: 1.8. (Baseline Cr: 1.7-1.9) Monitor renal functions, avoid nephrotoxic agents when possible (5) History of pulmonary embolism: Plan: Chronically anticoagulated on Eliquis Continue Eliquis (6) Hypertension: Plan: Initially hypertensive in ER with repeat SBP in 140s Continue lisinopril, metoprolol succinate (7) Hypercholesteremia: Plan: Continue rosuvastatin (8) CAD (coronary artery disease): Plan: S/P CABG Denies CP, SOB No acute ST changes on EKG Continue aspirin, metoprolol, rosuvastatin (9) GERD (gastroesophageal reflux disease): Plan: Continue PPI (10) Obesity: Plan: BMI: 39 DVT Prophylaxis On Eliquis Admit med tele Full Code as per discussion with pt Follows with Dr Coates for routine care Pt was seen and care coordinated with Dr De La Torre. See addendum I spent a total of 65 minutes reviewing notes, outpatient records, labs, medication, coordinating, documenting and providing care for this patient excluding time spent in the performance of separately billed services. History of Present Illness Chief Complaint: weakness, cough Primary Care Provider: Hipolito Coates MD Patient is 78 year old male with PMH HTN, dyslipidemia, CKD III, CAD s/p CABG, RBBB, left anterior fascicular block, GERD, obesity, AAA, PE presented to ER with c/o cough and generalized weakness x 2 days. History obtained from patient and patient's daughter. Reports 2 days ago started with fatigue, generalized weakness, cough, myalgias and chills. Patient states feels like he needs to cough stuff out however cough has been nonproductive. States highest home recorded temp was 99.5F. States today feeling weak and lightheaded with ambulating. Denies any known ill contacts. Reports had seasonal influenza vaccine. Denies diaphoresis, N/V/D/C, OSEGUERA, syncope, vision changes, neck pain, CP, SOB, palpitations, choking, abdominal pain, paresthesias, extremity edema, rashes, urinary symptoms. Allergies Allergy/AdvReac Type Severity Reaction Status Date / Time No Known Allergies Allergy Unverified 06/27/24 18:32 Home Medications Medication Instructions Recorded Confirmed Type lisinopril 5 mg tablet 5 mg PO QAM 06/25/19 06/27/24 History metoprolol succinate 50 mg 25 mg PO QAM 06/25/19 06/27/24 History tablet,extended release 24 hr omeprazole 20 mg capsule,delayed 20 mg PO QAM 06/25/19 06/27/24 History release rosuvastatin 40 mg tablet 40 mg PO QAM 06/25/19 06/27/24 History garlic 500 mg capsule 500 mg PO BID 12/23/19 06/27/24 History glucosamine sulfate 500 mg capsule 500 mg PO HS 12/23/19 06/27/24 History omega 6-dht-jom-fish oil 1,000 mg 1 cap PO BID 12/23/19 06/27/24 History (120 mg-180 mg) capsule (Fish Oil) apixaban 5 mg tablet (Eliquis) 5 mg PO AMHS 09/17/22 06/27/24 History aspirin 81 mg tablet,delayed 81 mg PO DAILY 06/27/24 06/27/24 History release cyanocobalamin (vitamin B-12) 1,000 mcg PO DAILY 06/27/24 06/27/24 History 1,000 mcg tablet tramadol 50 mg tablet 50 mg PO Q6 PRN pain,severe 06/27/24 06/27/24 History Past Med/Surg History Problem List History of pulmonary embolism Ambulatory dysfunction Influenza A (Acute) Weakness (Acute) Fever (Acute) Generalized muscle weakness (Acute) Abdominal aortic aneurysm (Acute) Left anterior fascicular block Right bundle branch block (Acute) CKD (chronic kidney disease), stage III Hypertension Hypercholesteremia GERD (gastroesophageal reflux disease) CAD (coronary artery disease) Obesity Pulmonary embolism, bilateral (Acute) Chronic kidney disease (Acute) Medical History COVID-19 Osteoarthritis of knee Surgical History H/O umbilical hernia repair H/O heart bypass surgery Family History Other Cancer Diabetes Heart disease Social History (Updated 06/27/24 @ 19:38 by Bren Spaulding PA-C) Smoking Status: Never smoker Second Hand Exposure: No; Do You Dip or Chew Tobacco: No; Hx Alcohol Use: No (unknown) Hx Substance Use: No (unknown) Preferred Language: Yoruba Communication Ability: Effective Sack Filler Required: No Beliefs That Will Affect Care: None marital status: Current Living Situation: Spouse Current Living Situation Comment: Per they live in a 2 story house and 2 adult daughters live with them Feels Safe at Home: Yes Assistive Devices: Cane Review of Systems Review of Systems: All systems reviewed & are unremarkable except as noted in HPI & below Physical Exam Physical Exam: General: no acute distress, obese elderly male Head: normocephalic, atraumatic Eyes: conjunctiva non-injected, anicteric ENT: +hard of hearing, normal inspection external ears, nose, mucous membranes mildly dry Neck: supple, trachea midline Lungs: no respiratory distress, +cough with deep inspiration and coarse breath sounds that clear with coughing CV: regular rhythm, rate 100, no murmur, no pretibial edema Abd: protuberant, normal BS, soft, non-tender Ext: no cyanosis, no calf tenderness Neuro: A&O x 3, no focal deficits noted, normal affect Skin: warm, dry Results & Data Results & Data Vital Signs (Past 12 Hours) Vital Signs Temp Pulse Pulse Resp BP BP Pulse Ox 12/27/24 18:21 101 H 22 157/102 H 99 06/27/24 17:12 100 H 20 120/74 91 06/27/24 16:33 98 H 06/27/24 16:33 36.9 C 100 H 20 164/86 H 93 06/27/24 16:33 36.9 C 100 H 20 164/86 H 93 O2 Del Method O2 Flow Rate 06/27/24 18:21 Nasal Cannula 2 06/27/24 17:12 Room Air 06/27/24 16:33 06/27/24 16:33 Room Air 06/27/24 16:33 Room Air Laboratory Results Short CBC 06/27/24 Range/Units 16:38 WBC 5.56 (4.8-10.8) K/ul Hgb 13.8 L (14.0-18.0) g/dl Hct 41.4 L (42.0-52.0) % Plt Count 120 L (130-400) K/uL BMP 06/27/24 16:38 Sodium 138 Potassium 4.6 Chloride 104 Carbon Dioxide 27 BUN 24 H Creatinine 1.80 H Glucose 102 H Calcium 9.0 Cardiac Enzymes 06/27/24 Range/Units 16:38 Total Creatine Kinase 160 (30-223) U/L Liver Function 06/27/24 Range/Units 16:38 Total Bilirubin 0.6 (0.2-1.0) mg/dl AST 29 (13-39) U/L ALT 17 (7-52) U/L Alkaline Phosphatase 48 (34-104) U/L Albumin 4.1 (3.4-5.0) gm/dl Urine 06/27/24 Range/Units 18:10 Urine Color Yellow Urine Appearance Clear (Clear) Urine pH 6.5 (4.5-7.5) Ur Specific [place] 1.016 (1.000-1.030) Urine Protein 2+ H (Negative) Urine Glucose (UA) Negative (Negative) Diagnostic Findings Chest X-Ray 06/27/24 16:34 EXAM: Radiograph of the Chest 1 View INDICATION: Weakness. TECHNIQUE: Frontal view of the chest. COMPARISON: 09/17/2022 FINDINGS: Lungs and pleural spaces: Stable patchy basilar airspace disease right greater than left. No pleural effusion or pneumothorax. Heart: Stable prominent cardiac shadow. Mediastinum: Normal contour. Bones/joints: Metallic anchors in the right humerus. Soft tissues: No abnormality noted. No radiopaque foreign body noted. Upper abdomen: No abnormality noted. IMPRESSION: Stable patchy basilar airspace disease right greater than left. ACT 112: Negative or not required by law. Electronically signed by Shireen Gonzalez 06-27-2024 5:00 PM Code Status & VTE Plan Code Status EKG: Sinus rhythm, rate 99, first-degree AV block, RBBB, no acute ST elevation per my interpretation Supervising Physician Co-Signing Physician Notes Attending Addendum: Case reviewed with the advanced practitioner. I have personally performed a history and physical examination on the patient. I have reviewed the advanced practitioner's documentation on the date of service referenced in note, and I agree with, and take responsibility for the plan of care. please refer to her notes for full details patient seen and examined, records reviewed by myself as well ASSESSMENT AND PLAN Bilateral pneumonia with hypoxia BioFire: Positive for flu Nasal MRSA swab: Pending Urine Legionella: Pending Blood cultures: pending Start Tamiflu Empiric ceftriaxone Nebs every 6 hours, hypertonic saline every 12 Mucinex Incentive spirometry, flutter valve other diagnoses and plan of care as per advanced practitioner's notes Jonathon De La Torre MD
[2024-06-27] MEDS ORDERED: ONDANSETRON INJ 2 MG/ML 2 ML VIAL IV PRN (20:20)
[2024-06-27] MEDS ORDERED: ACETAMINOPHEN 325 MG TAB PO PRN (20:20)
[2024-06-27] MEDS ORDERED: POLYETHYLENE (MIRALAX) 17 GM PACK PO PRN (20:20)
[2024-06-27] MEDS: SODIUM CHLORIDE 0.9% 500 ML IV ONE (20:36)
[2024-06-27] MEDS: APIXABAN 5 MG TABLET PO SCH (21:48)
[2024-06-27] MEDS: guaiFENesin 600 MG TABCR PO SCH (21:48)
[2024-06-27] MEDS: SODIUM CHLORIDE 0.9% 1,000 ML IV SCH (22:03)
[2024-06-27] MEDS: cefTRIAXone SODIUM 2,000 MG/50 ML BAG IV SCH (22:03)
--- OUTSIDE RECORDS SUMMARY | 2024-06-27 22:50 | External Medical Summary ---
Author Name Unknown Address Unknown Organization [id number]:[facility] - [address] [place] [address] Laboratory Report Ordering Provider Test Date Status FERCHO COOK 06/11/2024 14:13:52 Final Observation Date Value Abnormality Reference (Units ) Status Magnesium 06/11/2024 14:13:52 2.3 1.5-2.6 (m g/dL) Final Performing Location [facility] - [address] [place] [address]
--- OUTSIDE RECORDS SUMMARY | 2024-06-27 22:50 | External Medical Summary ---
Author Name Unknown Address Unknown Organization [id number][facility] [place] [address] [place] [address] Laboratory Report Ordering Provider Test Date Status FERCHO COOK 06/11/2024 14:13:52 Final Observation Date Value Abnormality Reference (Units ) Status Vitamin B12 06/11/2024 14:13:52 [id number] (pg/mL) Final Performing Location [facility] [place] [address] [place] [address]
--- OUTSIDE RECORDS SUMMARY | 2024-06-27 22:50 | External Medical Summary | Summary of Care ---
Author Name Unknown Organization [facility] Address [address] [place] [address] Phone [phone] Care Team Providers Care Insulation Board Back Tender Name Role Phone Hipolito Coates MD Primary Care Provider [phone] Reason for Visit * Reason Comments Outpatient Testing Encounter Details Date Type Department Care Team (Late st Contact Info) Description 06/11/2024 2:40 PM EST Laboratory Laboratory, [facility] [address] [place] [id number] [facility] [address] [place] [address] Encounter for long-term (current) use of medications Allergies No known active allergiesdocumented as of this encounter (statuses as of 06/11/2024) Medications OMEGA-3 FISH OIL 1000 MG PO CAPSIndications:Reynold dy mass index 40 and over, adult,Dyslipidemia , goal LDL below 130 Take one capsule by mouth twice a day 60 Cap 5 0 Active ASPIRIN EC 81 MG PO TBECIndications:Reynold dy mass index 40 and over, adult Take one pill daily 100 Tab 3 0 Active GLUCOSAMINE 500 MG PO CAPSIndications:Reynold dy mass index 40 and over, adult,Primary localized osteoarthrosis, lower leg One pill by mouth a day 100 Cap 11 0 Active GARLIC OIL 500 MG PO CAPSIndications:Pr imary localized osteoarthrosis, lower leg takes one twice a day 60 Cap 6 1 Active Rosuvastatin Calcium 40 MG Oral Tablet (Crestor)Indicatio ns:Dyslipidemia Take 1 Tablet by mouth in the morning. 90 Tablet 3 05/12/2024 6:13 AM EST 4 Active Cyanocobalamin 1000 MCG Oral Tablet ([facility] Vitamin B-12) Take 1 Tablet by mouth in the morning. 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 90 Tablet 3 05/05/2024 10:30 AM EST 4 Active Metoprolol Succinate ER 50 MG Oral Tablet Extended Release 24 Hour (toPROL XL)Indications:S/P CABG x 4,RBBB (right bundle branch block),HTN, goal below 140/90,Bifascicula r bundle branch block,Dyslipidemia , goal LDL below 70 Take one-half Tablet by mouth in the morning. 45 Tablet 3 04/15/2024 12:08 PM EDT 4 Active Apixaban 5 MG Oral Tablet (Eliquis) Take 1 Tablet by mouth in the morning and 1 Tablet before bedtime. 180 Tablet 1 01/30/2024 6:44 AM EDT 4 Active Omeprazole 20 MG Oral Capsule Delayed Release (PriLOSEC)Indicati ons:GERD (gastroesophageal reflux disease) Take 1 Capsule by mouth in the morning. 90 Capsule 05/12/2024 6:13 AM EST 4 Active documented as of this encounter (statuses as of 06/11/2024) Active Problems Problem Noted Date Diagnosed Date History of pulmonary embolism 10/24/2022 Sensorineural hearing loss (SNHL) of both ears 0 10/25/2021 Chronic kidney disease, stage 3b 12/14/2020 Overview: Per CKD protocol Bifascicular bundle branch block 08/22/2019 Coronary artery disease invo lving [place] coronary artery of [place] heart without angina pectoris 11/08/2015 Abdominal aortic aneurysm without rupture 2015 Overview (04/28/2022): No intervention planned due to high risk of [place] and dialysis in the setting of elective surgery 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 Overview (07/29/2013): Off pump coronary artery bypass times 4: NICOLE - LAD, Aorta - PDA - PM, Aorta - Int HTN, goal below 130/80 05/21/2013 Gastroesophageal reflux disease without esophagi tis 05/21/2013 Dyslipidemia 02/14/2010 Morbid obesity 02/14/2010 Overview (09/20/2015): ICD-10 update of inactive term documented as of this encounter (statuses as of 06/11/2024) Resolved Problems Problem Noted Date Diagnosed Date Resolved Date Hypertensive kidney disease with stage 3b chronic kidney disease 10/24/2022 11/07/2022 Bilateral pulmonary embolism 04/28/2022 10/24/2022 Overview (04/28/2022): Non-occlusive diagnosed March of 2022 Stage 3a chronic kidney disease 05/10/2020 12/16/2020 Overview: Per CKD protocol Body mass index (BMI) of 40. 0 to 44.9 in adult 09/08/2019 10/25/2021 Overview: Per Obesity protocol - Per Obesity protocol - - Body mass index (BMI) of 45. 0 to 49.9 in adult 02/10/2019 09/11/2019 Overview: Per Obesity protocol - - Body mass index (BMI) of 40. 0 to 44.9 in adult 02/12/2018 02/13/2019 Overview: Per Obesity protocol #1 - BMI 45.0-49.9, adult 02/19/2017 0818/ 018 Overview: Per Obesity protocol #1 - Abnormal ultrasound 07/15/2015 06/21/20 18 Overview (11/17/2015): 11/17/15: 3.1 cm AAA, repeat in 6 months 07/15/15: abdominal aorta 2.7 cm, repeat 1 year History of tobacco use 07/07/201510/21 Overview (07/07/2015): 25 pack years stopped in 1983 Kidney disease, chronic, sta ge III (GFR 30-59 ml/min) 10/26/2013 05/13/2020 Overview: Per CKD protocol CAD (coronary artery disease) 07/30/2013 11/08/2015 Body mass index (BMI) of 40.0-44.9 in adult 10/17/2010 02/19/2017 Primary localized osteoarthrosis, lower leg 02/14/2010 10/21/2020 documented as of this encounter (statuses as of 06/11/2024) Immunizations Name Administration Dates Next Due Diptheria/Tetanus (Adult) 07/02/2006 Pneumococcal Conjugate Vacc, 13 Valent (Prevnar) 07/05/2015 Pneumococcal Polysaccharide PPV23 (Pneumovax) 02/14/2010 Season Influenza, Quad, PF, Adjuvanted, 65+ Yrs, IM (FLUAD) 04/30/2020 Seasonal Influenza Vac., MDV , IM, 0.5 mL (Fluzone) 03/14/2014,05/21/2013,05/10/2012,1103/2011,04/18/2010 05/10/2013 Seasonal Influenza Virus Vac cine, Unspecified Formulation 04/25/2021,04/30/2020,03/19/2019,04/02,04/13/2017,04/18/2016,03/14/20 14,05/21/2013,05/10/2012,05/10/2011,1 Seasonal Influenza, High Dos e, Trivalent, PF, IM (Fluzone HD) 05/12/2024 Seasonal Influenza, PF, 6 M & above, IM , (FluLaval or Fluzone) 04/23/2018,04/13/2017 Seasonal Influenza, Quadriva lent Hd (Fluzone Hd) 06/11/2023,04/28/2022,04/25/2021 Seasonal Influenza, Quadriva lent, No Preserve, IM 04/18/2016,06/15/2015 Seasonal Influenza, Trivalen t, Adjuvanted, 65+ YRS, PF, (Fluad) 03/19/2019 TDAP (age 10 and older)(Boostrix) 05/21/2013 Varicella Zoster Vaccine (Adult) 07/02/2013 Zoster Vaccine Recombinant (Shingrix) 04/30/2020 ,02/25/2020 documented as of this encounter Social History Tobacco Use Types Packs/Day Years Used Date Smoking Tobacco: Former Cigarettes 1 25 0 07/02/1957 - 07/02/1982 Smokeless Tobacco: Never Alcohol Use Standard Drinks/Week Comments No 0 (1 standard drink = 0.6 oz pur e alcohol) occ beer PHQ-2 Answer Date Recorded PHQ Adult Total Score 0 12/22/2022 Hunger Vital Sign Answer Date Recorded Within the past 12 months, y ou worried that your food would run out before you got the money to buy more. Never true 12/23/19 Within the past 12 months, t he food you bought just didn't last and you didn't have money to get more. Never true 12/22/2022 Childcare Answer Date Recorded Do you feel overwhelmed with taking care of a child, family member or friend? No 12/22/2022 Does your family need help f inding childcare? (Household - for ages 0-17 years) Not on file 12/22/2022 Clothing Answer Date Recorded Have you been unable to get clothing when it was really needed? No 12/22/2022 Is your family able to get c lothes or diapers when needed? (Household - for ages 0-17 years) Not on file 12/22/2022 Personal Safety Answer Date Recorded Do you feel unsafe or have concerns for your saf ety? No 12/22/2022 Do you have concerns for you r family's safety? (Household - for ages 0-17 years) Not on file 12/22/2022 Utilities Answer Date Recorded Do you have trouble paying y our heating, water, or electric bill? (Adult - for ages 18 years and over) Not on file 2023 Is your family able to pay t he heat, water, or electric bill? (Household - for ages 0-17 years) Not on file 2023 Does your family have access to good internet? (Household - for ages 0-17 years) Not on file 2023 Employment Status Answer Date Recorded Are you unemployed or without regular income? No 12/22/2022 Does the household have a re gular source of income? (Household - for ages 0-17 years) Not on file 12/22/2022 Social Connections Answer Date Recorded How often do you feel lonely or isolated from those around you? (Adult - for ages 18 years and over) Not on file 2023 Financial Resource Strain Answer Date R ecorded Do you have any trouble payi ng for your medications, or do you think you might in the future? No 12/22/2022 Does your family have troubl e paying for medicine? (Household - for ages 0-17 years) Not on file 12/22/2022 Transportation Needs Answer Date Record ed READ ONLY Do you have troubl e getting a ride to medical visits or work? Never True 12/22/2022 Does your family have a hard time getting a ride to doctors visits? (Household - for ages 0-17 years) Not on file 12/22/2022 Has lack of transportation k ept you from medical appointments, meetings, work, or from getting things needed for daily living? Check all that apply. (Adult - for ages 18 years and over) Not on file 12/22/2022 Do you (or your family) have trouble finding or paying for a ride (transportation)? (Household - for ages 0-17 years) Not on file 12/22/2022 Housing Stability Answer Date Recorded Do you currently live in a s helter or have no steady place to sleep at night? No 12/22/2022 READ ONLY Do you think you a re at risk of becoming homeless? No 12/22/2022 Does your family worry about paying for your home or becoming homeless? (Household - for ages 0-17 years) Not on file 0 12/22/2022 Are you homeless or worried that you might be in the future? (Adult - for ages 18 years and over) Not on file Are you (or your family) luzma eless or worried that you might be in the future? (Household - for ages 0-17 years) Not on file Food Insecurity Answer Date Recorded Do you need food for this week? No 12/22/2022 Are you able to get enough f ood for your family? (Household - for ages 0-17 years) Not on file 12/22/2022 Does your family need food t his week? (Household - for ages 0-17 years) Not on file 12/22/2022 Do you always have enough fo od for your family? (Household - for ages 0-17 years) Not on file 12/22/2022 Sex and Gender Information Value Date Recorded Sex Assigned at Male 12/22/2022 3:01 PM EDT Legal Sex Male 6:22 AM EST Gender Identity Male 12/22/2022 3:01 PM EDT Sexual Orientation Straight 12/22/2022 3: 01 PM EDT Occupation Industry Job Start Date Job End Date retired [employer] at age 59 Not on file Not on fi le Not on file disability for shoulder, torn rotater cuff Not on file Not on file Not on file documented as of this encounter Functional Status * Are you deaf or do you have serious difficulty hearing? Answer Date of Assessment Author Yes 07/28/2013 8:00 PM Pina Garcia RN * Are you blind or do you have serious difficulty seeing, even when wearing glasses? Answer Date of Assessment Author No 07/28/2013 8:00 PM Pina Garcia RN * Do you have serious difficulty walking or climbing stairs? (5 years old or older) Answer Date of Assessment Author No 07/28/2013 8:00 PM Pina Garcia RN * Do you have difficulty dressing or bathing? (5 years old or older) Answer Date of Assessment Author No 07/28/2013 8:00 PM Pina Garcia RN * Because of a physical, mental, or emotional condition, do you have difficulty doing errands alone such as visiting a doctors office or shopping? (15 years old or older) Answer Date of Assessment Author No 07/28/2013 8:00 PM Pina Garcia RN documented as of this encounter Mental Status * Because of a physical, mental, or emotional condition, do you have serious difficulty concentrating, remembering, or making decisions? (5 years old or older) Answer Entry Date Author No 07/28/2013 8:00 PM EST Pina Donaldson RN documented in this encounter Plan of Treatment Upcoming Encounters Date Type Department Care Team (Late st Contact Info) Description 06/16/2024 1:20 PM EST Office Visit Family [facility] [address] [place] [address] Hipolito Coates MD [address] [place] [address] Pending Results Name Type Priority Associated Diagnoses Date /Time MAGNESIUM Lab Routine Encounter for long-term (current) use of medications 06/11/2024 2:13 PM EST VITAMIN B12 Lab Routine Encounter for long-term (current) use of medications 06/11/2024 2:13 PM EST Scheduled Procedures Name Priority Associated Diagnoses Date/Ti me COLONOSCOPY FLEXIBLE PROXIMA L DIAGNOSTIC Recall Colon cancer screening Special screening for malignant neoplasms, colon Health Maintenance Due Date Last Done Comments DTap/Tdap Vaccines (2 - Td or Tdap) 05/21/2023 05/21/2013, 07/02/2006 Adult Wellness Visit 2023 12/22/2022 Depression Screening 2023 12/22/2022 COVID-19 Vaccine ( season) 2024 GFR 07/17/2024 01/15/2024, 06/01, 11/07/2022, Additional history exists Albumin/Creatinine Ratio 01/14/2025 024, 10/04/2017, 07/31/2016, Additional history exists CKD HGB USE SMARTSET 69762 01/14/202501/14, 11/07/2022, 11/07/2022, Additional history exists CKD PHOS USE SMARTSET 32191 01/14/202512/30, 11/07/2022, 04/25/2021, Additional history exists AAA Monitoring 02/10/2025 02/11/2024, 06/02, 03/02/2022, Additional history exists Pneumococcal Vaccine: 65+ Years Completed 07/05/2015, 02/14/2010 Zoster Vaccines Completed 04/30/2020, 01/31, 07/02/2013 Influenza Vaccine (FLU shot) Completed 05/2024, 05/12/2024, 06/11/2023, Additional history exists HPV (Gardasil) Vaccine Aged Out No lo nger eligible based on patient's age to complete this topic Hepatitis B Vaccine Aged Out No longe r eligible based on patient's age to complete this topic MENINGOCOCCAL (MENACTRA/MENVEO) Aged Out No longer eligible based on patient's age to complete this topic documented as of this encounter Medical Devices Implanted Type Area Yardage Caller Device Identifier Shelf Expiration Date Model / Serial / Lot Sut Steel 6 M654g - [id number] [place]ed:[place] on [place]2013 [place] [facility] [place]: Chest DO NOT USE 01/29/2018 M654G / / [id number] Marker Coronary [facility] - [id number] [place]planted:Qty: 2 on 07/28/2013 [place] [facility] [place]: Aorta [employer] 03/31/2016 AM-SD / / [id number] documented as of this encounter Visit Diagnoses Diagnosis Encounter for long-term (current) use of medications Encounter for long-term (current) use of other medications documented in this encounter Advance Directives * Full Code (Latest Code Status on File) Date Activated Date Inactivated Comments 07/28/2013 1:42 PM 08/03/2013 4:04 PM This order re flects the patients wishes and were consensually agreed upon. Care Teams Insulation Board Back Tender Relationship Specialty Start Date End Date Hipolito Coates MD [address] [place] [id number] PCP - General Family Medicine 10/22/20 documented as of this encounter
--- OUTSIDE RECORDS SUMMARY | 2024-06-27 22:50 | External Medical Summary | Summary of Care ---
Author Name Unknown Organization [facility] Address [address] [place] [address] Phone [phone] Care Team Providers Care Pantry Worker Name Role Phone Hipolito Coates MD Primary Care Provider [phone] Reason for Visit * Reason Comments Physical-Exam Pt here for cpe, c/o L hip pain x 2 weeks Encounter Details Date Type Department Care Team (Late st Contact Info) Description 06/16/2024 1:20 PM EST Office Visit Family [facility] [address] [place] [address] Hipolito Coates MD [address] [place] [address] HTN, goal below 130/80*; Coronary artery disease involving [place] coronary artery of [place] heart without angina pectoris; Pararenal abdominal aortic aneurysm (AAA) without rupture (HCC); Chronic kidney disease, stage 3b (HCC); S/P CABG x 4; History of pulmonary embolism; Sensorineural hearing loss (SNHL) of both ears; Morbid obesity (HCC); Dyslipidemia; Hip pain, left Allergies No known active allergiesdocumented as of this encounter (statuses as of 06/16/2024) Medications OMEGA-3 FISH OIL 1000 MG PO [...] Capsule 05/12/2024 6:13 AM EST 4 Active traMADol HCl 50 MG Oral Tablet (Ultram)Indication s:Hip pain, left Take 1 Tablet by mouth every 6 hours as needed for Pain, Severe. 30 Tablet Active documented as of this encounter (statuses as of 06/16/2024) Active Problems Problem Noted Date Diagnosed Date History of pulmonary embolism 10/24/2022 Sensorineural hearing loss (SNHL) of both ears 0 10/25/2021 Chronic kidney disease, stage 3b 12/14/2020 Overview: Per CKD protocol Bifascicular bundle branch block 08/22/2019 Coronary artery disease invo lving [place] coronary artery of [place] heart without angina pectoris 11/08/2015 Abdominal aortic aneurysm without rupture 2015 Overview (04/28/2022): No intervention planned due to high risk of [place] and dialysis in the setting of elective [...] as of this encounter (statuses as of 06/16/2024) Resolved Problems Problem Noted Date Diagnosed Date [...] protocol #1 - BMI 45.0-49.9, adult 02/19/2017 018 Overview: Per Obesity protocol #1 - [...] as of this encounter (statuses as of 06/16/2024) Immunizations Name Administration Dates Next Due Diptheria/Tetanus (Adult) 07/02/2006 Pneumococcal Conjugate Vacc, 13 Valent (Prevnar) 07/05/2015 Pneumococcal Polysaccharide PPV23 (Pneumovax) 02/14/2010 Season Influenza, Quad, PF, Adjuvanted, 65+ Yrs, IM (FLUAD) 04/30/2020 Seasonal Influenza Vac., MDV , IM, 0.5 mL (Fluzone) 03/14/2014,05/21/2013,05/10/2012,11/0 03/2011,04/18/2010 05/10/2013 Seasonal Influenza Virus Vac cine, Unspecified [...] Job Start Date Job End Date retired [employer] at age 59 Not on file Not on fi le Not on file disability for shoulder, torn rotater cuff Not on file Not on file Not on file documented as of this encounter Last Filed Vital Signs Vital Sign Reading Time Taken Comments Blood Pressure 126/78 06/16/2024 1:03 PM EST Pulse 72 06/16/2024 1:03 PM EST Temperature 37.3 C (99.2 F) 06/16/2024 1:03 PM ES T Respiratory Rate 20 06/16/2024 1:03 PM EST Oxygen Saturation - - Inhaled Oxygen Concentration - - Weight 124.7 kg (275 lb) 06/16/2024 1:03 PM EST Height 170.2 cm (5' 7") 06/16/2024 1:03 PM EST Body Mass Index 43.07 06/16/2024 1:03 PM EST documented in this encounter Functional Status * Are you [...] Entry Date Author No 07/28/2013 8:00 PM Pina Garcia RN documented in this encounter Progress Notes * Hipolito Coates MD - 06/16/2024 1:26 PM EST SUBJECTIVE: Thomas Paez is a 78 year old male. Chief Complaint Patient presents with Physical-Exam Pt here for cpe, c/o L hip pain x 2 weeks HPI: Thomas is a pleasant but VERY hard of hearing 78 year old male who comes in accompanied by his daughter per usual routine. He feels well from a cardiopulmonary standpoint. His left hip has been bothering him. Apparently he had an unwitnessed fall about 2 weeks ago when he was outside shoveling. For tunately he did not hit his head and doesn't appear to have suffered and major injury. He has been taking Tylenol for pain which has been minimally helpful. Patient Active Problem List Diagnosis Dyslipidemia Morbid obesity (HCC) HTN, goal below 130/80 Gastroesophageal reflux disease without esophagitis S/P CABG x 4 Coronary artery disease involving [place] coronary artery of [place] heart without angina pectoris Abdominal aortic aneurysm without rupture Bifascicular bundle branch block Chronic kidney disease, stage 3b (HCC) Sensorineural hearing loss (SNHL) of both ears History of pulmonary embolism Current Outpatient Medications Medication Sig Dispense Refill OMEGA-3 FISH OIL 1000 MG PO CAPS Take one capsule by mouth twice a day 60 Cap 5 ASPIRIN EC 81 MG PO TBEC Take one pill daily 100 Tab 3 GLUCOSAMINE 500 MG PO CAPS One pill by mouth a day 100 Cap 11 GARLIC OIL 500 MG PO CAPS takes one twice a day 60 Cap 6 Rosuvastatin Calcium 40 MG Oral Tablet (Crestor) Take 1 Tablet by mouth in the morning. 90 Tablet 3 Cyanocobalamin 1000 MCG Oral Tablet ([facility] Vitamin B-12) Take 1 Tablet by mouth in the morning. 90 Tablet 0 Lisinopril 5 MG Oral Tablet (Prinivil) Take 1 Tablet by mouth in the morning. 90 Tablet 3 Metoprolol Succinate ER 50 MG Oral Tablet Extended Release 24 Hour (toPROL XL) Take one-half Tabletby mouth in the morning. 45 Tablet 3 Apixaban 5 MG Oral Tablet (Eliquis) Take 1 Tablet by mouth in the morning and 1 Tablet before bedtime. 180 Tablet 1 Omeprazole 20 MG Oral Capsule Delayed Release (PriLOSEC) Take 1 Capsule by mouth in the morning. 90Capsule 0 traMADol HCl 50 MG Oral Tablet (Ultram) Take 1 Tablet by mouth every 6 hours as needed for Pain, Severe. 30 Tablet 0 No current facility-administered medications for this visit. Allergy: Review of patient's allergies indicates: No Known Allergies OBJECTIVE: BP 126/78 | Pulse 72 | Temp 99.2 F (37.3 C) | Resp 20 | Ht 5' 7" (1.702 m) | Wt 275 lb (124.7 kg) | BMI 43.07 kg/m | BSA 2.43 m Gen: morbidly obese, nad Lungs: ctab Neck: no JVD Heart: rrr, no mrg Abdomen: obese, non tender Msk: + tender over left SI joint ASSESSMENT AND PLAN: (I10) HTN, goal below 130/80 (primary encounter diagnosis) Plan: continue rx (I25.10) Coronary artery disease involving [place] coronary artery of [place] heart without angina pectoris Plan: continue medical mgmt (I71.41) Pararenal abdominal aortic aneurysm (AAA) without rupture (HCC) Plan: managing conservatively (N18.32) Chronic kidney disease, stage 3b (HCC) Plan: stable (Z95.1) S/P CABG x 4 Plan: continue rx (Z86.711) History of pulmonary embolism Plan: continue a/c (H90.3) Sensorineural hearing loss (SNHL) of both ears Plan: very NATIVE (E66.01) Morbid obesity (HCC) Plan: stable (E78.5) Dyslipidemia Plan: continue rx (M25.552) Hip pain, left Plan: XR HIP UNILAT 2-3 VIEWS INCLUDING AP PELVIS, traMADol HCl 50 MG Oral Tablet (Ultram) -okay for short term use of tramadol Follow up as needed. No other complaints were offered at this time. Hipolito Coates MD documented in this encounter Plan of Treatment Pending Results Name Type Priority Associated Diagnoses Date /Time XR HIP UNILAT 2-3 VIEWS INCLUDING AP PELVIS Medical Imaging Routine Hip pain, left 06/16/2024 1:33 PM EST Scheduled Procedures Name Priority Associated [...] 11/07/2022, Additional history exists Albumin/Creatinine Ratio 01/14/2025 07 024, 10/04/2017, 07/31/2016, Additional history exists CKD HGB USE SMARTSET 02527 01/14/202501/14, 11/07/2022, 11/07/2022, Additional history exists CKD PHOS USE SMARTSET 99828 01/14/202512/30, 11/07/2022, 04/25/2021, Additional history exists AAA [...] this encounter Medical Devices Implanted Type Area Carver Hand Device Identifier Shelf Expiration Date Model / Serial / Lot Sut Steel 6 M654g - [id number] [place]ed:[place] 6 [place] [facility] [place] Chest DO NOT USE 01/29/2018 M654G / / [id number] Marker Coronary [facility] - [id number] Implanted:Qty: 2 on [place] [facility] [place] Aorta [employer] 03/31/2016 AM-SD / / [id number] documented as of this encounter Visit Diagnoses Diagnosis HTN, goal below 130/80- Primary Unspecified essential hypertension Coronary artery disease involving [place] coronary artery of [place] heart without angina pectoris Pararenal abdominal aortic aneurysm (AAA) without rupture (HCC) Chronic kidney disease, stage 3b (HCC) S/P CABG x 4 Postsurgical aortocoronary bypass status History of pulmonary embolism Personal history of pulmonary embolism Sensorineural hearing loss (SNHL) of both ears Morbid obesity (HCC) Morbid obesity Dyslipidemia Other and unspecified hyperlipidemia Hip pain, left Pain in joint, pelvic region and thigh documented in this encounter Advance Directives * Full Code (Latest Code Status on File) Date Activated Date Inactivated Comments 07/28/2013 1:42 PM 08/03/2013 4:04 PM This order re flects the patients wishes and were consensually agreed upon. Care Teams Pantry Worker Relationship Specialty Start Date End Date Hipolito Coates MD [address] [place] [phone] PCP - General Family Medicine 10/22/20 documented as of this encounter
--- OUTSIDE RECORDS SUMMARY | 2024-06-27 22:51 | External Medical Summary ---
Author Name Unknown Address Unknown Organization [id number]:[facility] [place] [address] [place] [address] Laboratory Report Ordering Provider Test Date Status BRITNEYEMILY 01/15/2024 09:05:05 Final Observation Date Value Abnormality Reference (Units ) Status BUN 01/15/2024 09:05:05 32 Above high normal 6-20 (mg/dL) Final Creatinine 01/15/2024 09:05:05 1.9 Above high normal 0.6-1.2 (mg/dL) Final Glomerular filtration rate/1.73 sq M.predicted [Volume Rate/Area] in Serum, Plasma or Blood by Creatinine-based formula (CKD-EPI) 01/15/2024 09:05:05 35 Below low normal >=60 (mL/min) Final eGFR is calculated based on the CKD-EPI 2020 equation Sodium 01/15/2024 09:05:05 139 135-146 (m mol/L) Final Potassium 01/15/2024 09:05:05 5.3 Above high normal 3. 5-5.1 (mmol/L) Final Cl 01/15/2024 09:05:05 106 98-107 (mm ol/L) Final CO2 01/15/2024 09:05:05 22 22-32 (mmo l/L) Final Anion gap 01/15/2024 09:05:05 11 7-15 (mmol /L) Final Glucose 01/15/2024 09:05:05 102 70-120 (mg /dL) Final Albumin 01/15/2024 09:05:05 4.3 3.8-5.0 (g /dL) Final AST (Aspartate aminotransferase) 01/15/2024 09:05:05 27 10-50 (U/L) Fin al Result may be falsely elevat ed due to hemolysis. Alk Phos 01/15/2024 09:05:05 56 35-130 (U/ L) Final Bilirubin, Total 01/15/2024 09:05:05 0.5 <=1 .2 (mg/dL) Final Calcium 01/15/2024 09:05:05 9.1 8.4-10.2 ( mg/dL) Final Protein 01/15/2024 09:05:05 6.6 6.0-8.3 (g /dL) Final ALT (Alanine aminotransferase) 01/15/2024 09:05:05 20 10-50 (U/L) Final Performing Location [facility] [place] [address] [facility] [address]
--- OUTSIDE RECORDS SUMMARY | 2024-06-27 22:51 | External Medical Summary | Summary of Care ---
Author Name Unknown Organization [facility] Address [address] [place] [address] Phone [phone] Care Team Providers Care Water Project Manager Name Role Phone Hipolito Coates MD Primary Care Provider [phone] Reason for Visit * Reason Comments Outpatient Testing Encounter Details Date Type Department Care Team (Late st Contact Info) Description 01/25/2024 9:00 AM EDT Laboratory Laboratory, [facility] [address] [place] [address] [place], [facility] [address] [place] [address] Arrived Allergies No known active allergiesdocumented as of this encounter (statuses as of 01/25/2024) Medications Medication Sig Dispensed Refills Start Date End Date Status OMEGA-3 FISH OIL 1000 MG PO CAPSIndications:Body mass index 40 and over, adult,Dyslipidemia, goal LDL below 130 Take one capsule by mouth twice a day 60 Cap 5 02/14/2010 Active ASPIRIN EC 81 MG PO TBECIndications:Body mass index 40 and over, adult Take one pill daily 100 Tab 3 02/14/2010 Active GLUCOSAMINE 500 MG PO CAPSIndications:Body mass index 40 and over, adult,Primary localized osteoarthrosis, lower leg One pill by mouth a day 100 Cap 11 02/14/2010 Active GARLIC OIL 500 MG PO CAPSIndications:Primar y localized osteoarthrosis, lower leg takes one twice a day 60 Cap 6 05/10/2011 Active Rosuvastatin Calcium 40 MG Oral Tablet (Crestor)Indications:D yslipidemia Take 1 Tablet by mouth in the morning. 90 Tablet 3 08/07/2023 Active Cyanocobalamin 1000 MCG Oral Tablet ([facility] Vitamin B-12) Take 1 Tablet by mouth in the morning. 90 Tablet 08/07/2023 Active Omeprazole 20 MG Oral Capsule Delayed Release (PriLOSEC)Indications: GERD (gastroesophageal reflux disease) Take 1 Capsule by mouth in the morning. 90 Capsule 2 08/07/2023 Active Apixaban 5 MG Oral Tablet (Eliquis) Take 1 Tablet by mouth in the morning and 1 Tablet before bedtime. 180 Tablet 1 08/07/2023 Active Lisinopril 5 MG Oral Tablet (Prinivil)Indications: Coronary artery disease involving nonautologous biological coronary bypass graft without angina pectoris,HTN, goal below 140/90 Take 1 Tablet by mouth in the morning. 90 Tablet 3 08/07/2023 Active Metoprolol Succinate ER 50 MG Oral Tablet Extended Release 24 Hour (toPROL XL)Indications:S/P CABG x 4,RBBB (right bundle branch block),HTN, goal below 140/90,Bifascicular bundle branch block,Dyslipidemia, goal LDL below 70 Take one-half Tablet by mouth in the morning. 45 Tablet 3 01/08/2024 Active documented as of this encounter (statuses as of 01/25/2024) Active Problems Problem Noted Date Diagnosed Date History of pulmonary embolism 10/24/2022 Sensorineural hearing loss (SNHL) of both ears 0 10/25/2021 Chronic kidney disease, stage 3b 12/14/2020 Overview: Per CKD protocol Bifascicular bundle branch block 08/22/2019 Coronary artery disease invo lving [place] coronary artery of [place] heart without angina pectoris 11/08/2015 Abdominal aortic aneurysm without rupture 2015 Overview: No intervention planned due to high risk of MS and dialysis in the setting of elective surgery 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 Overview: Off pump coronary artery bypass times 4: NICOLE - LAD, Aorta - PDA - PM, Aorta - Int HTN, goal below 130/80 05/21/2013 Gastroesophageal reflux disease without esophagi tis 05/21/2013 Dyslipidemia 02/14/2010 Morbid obesity 02/14/2010 Overview: ICD-10 update of inactive term documented as of this encounter (statuses as of 01/25/2024) Resolved Problems Problem Noted Date Diagnosed Date Resolved Date Hypertensive kidney disease with stage 3b chronic kidney disease 10/24/2022 11/07/2022 Bilateral pulmonary embolism 04/28/2022 10/24/2022 Overview: Non-occlusive diagnosed March of 2022 Stage 3a [...] #1 - Abnormal ultrasound 07/15/2015 06/21/20 18 Overview: 11/17/15: 3.1 cm AAA, repeat in 6 months 07/15/15: abdominal aorta 2.7 cm, repeat 1 year History of tobacco use 07/07/201510/21 Overview: 25 pack years stopped in 1982 Kidney disease, chronic, sta ge III (GFR 30-59 ml/min) 10/26/2013 05/13/2020 Overview: Per CKD protocol CAD (coronary artery disease) 07/30/2013 11/08/2015 Body mass index (BMI) of 40.0-44.9 in adult 10/17/2010 02/19/2017 Primary localized osteoarthrosis, lower leg 02/14/2010 10/21/2020 documented as of this encounter (statuses as of 01/25/2024) Immunizations Name Administration Dates Next Due Diptheria/Tetanus (Adult) 07/02/2006 Pneumococcal Conjugate Vacc, 13 Valent (Prevnar) 07/05/2015 Pneumococcal Polysaccharide PPV23 (Pneumovax) 02/14/2010 Season Influenza, Quad, PF, Adjuvanted, 65+ Yrs, IM (FLUAD) 04/30/2020 Seasonal Influenza Virus Vac cine, Unspecified Formulation 04/25/2021,04/30/2020,03/19/2019,04/02,04/13/2017,04/18/2016,03/14/20 14,05/21/2013,05/10/2012,05/10/2011,1 Seasonal Influenza, PF, 6 M & above, IM , (FluLaval or Fluzone) 04/23/2018,04/13/2017 Seasonal Influenza, Quadriva lent Hd (Fluzone Hd) 06/11/2023,04/28/2022,04/25/2021 Seasonal Influenza, Quadriva lent, No Preserve, IM 04/18/2016,06/15/2015 Seasonal Influenza, Split, I IV3, With Preserve, Inj 03/14/2014,05/21/2013,05/10/2012,11/0 03/2011,04/18/2010 05/10/2013 Seasonal Influenza, Trivalen t, Adjuvanted, 65+ yrs 03/19/2019 TDAP (age 10 and older)(Boostrix) 05/21/2013 [...] Assigned at Male 12/22/2022 3:01 PM EDT Gender Identity Male 12/22/2022 3:01 PM EDT Sexual Orientation Straight 12/22/2022 3: 01 PM EDT Job Start Date Occupation Industry Not on file Not on file Not on file documented as of this encounter Functional Status Functional Status Response Date of Assess ment Are you deaf or do you have serious difficulty h earing? Yes 07/28/2013 Are you blind or do you have serious difficulty seeing, even when wearing glasses? No 07/28/2013 Do you have serious difficul ty walking or climbing stairs? (5 years old or older) No 07/28/2013 Do you have difficulty dress ing or bathing? (5 years old or older) No 07/28/2013 Because of a physical, menta l, or emotional condition, do you have difficulty doing errands alone such as visiting a doctor s office or shopping? (15 years old or older) No 07/28/19 14 Cognitive Status Response Date of Assessm ent Because of a physical, menta l, or emotional condition, do you have serious difficulty concentrating, remembering, or making decisions? (5 years old or older) No 07/28/2013 documented as of this encounter Plan of Treatment Upcoming Encounters Date Type Department Care Team (Late st Contact Info) Description 02/11/2024 4:15 PM EDT Imaging Radiology [facility] [address] [place] [address] 06/16/2024 1:20 PM EST Office Visit Family Practice [facility] [address] [place] [address] Hipolito Coates MD [address] [facility] [place] [address] Scheduled Procedures Name Priority Associated Diagnoses Date/Ti me COLONOSCOPY FLEXIBLE PROXIMA L DIAGNOSTIC Recall Colon cancer screening Special screening for malignant neoplasms, colon Health Maintenance Due Date Last Done Comments COVID-19 Vaccine (2022- season) 2023 DTaP,Tdap,and Td Vaccines (2 - Td or Tdap) 05/21/2023 05/21/2013, 07/02/2006 Depression Screening 2023 12/22/2022 Influenza Vaccine (FLU shot) (#1) 2024 06/11/2023, 04/28/2022, 04/25/2021, Additional history exists AAA Monitoring 06/26/2024 06/26/2023, 09/0 07/2021, 12/22/2020, Additional history exists GFR 07/17/2024 01/15/2024, 06/01, 11/07/2022, Additional history exists Albumin/Creatinine Ratio 01/14/2025 024, 10/04/2017, 07/31/2016, Additional history exists CKD HGB USE SMARTSET 58565 01/14/202501/14, 11/07/2022, 11/07/2022, Additional history exists CKD PHOS USE SMARTSET 95860 01/14/202512/30, 11/07/2022, 04/25/2021, Additional history exists Pneumococcal Vaccine: 65+ Years Completed 07/05/2015, 02/14/2010 Zoster Vaccines Completed 04/30/2020, 01/31, 07/02/2013 *BASELINE EKG FOR HTN Completed 08/07/2023 , 10/10/2022, 12/21/2020, Additional history exists HPV (Gardasil) Vaccine Aged Out No lo nger eligible based on patient's age to complete this topic Hepatitis B Vaccine Aged Out No longe r eligible based on patient's age to complete this topic MENINGOCOCCAL (MENACTRA/MENVEO) Aged Out No longer eligible based on patient's age to complete this topic documented as of this encounter Medical Devices Implanted Type Area [employer]cur[employer] Sales Consultant Device Identifier Shelf Expiration Date Model / Serial / Lot Sut Steel 6 [id number] - [id number] Implanted:Qty: 6 on 07/28/2013 at [place] [facility] [place] N/A: Chest DO NOT USE 01/29/2018 [id number] / / [id number] Marker Coronary Am-Sd - [id number] Implanted:Qty: 2 on 07/28/2013 at [place] [facility] [place] N/A: Aorta [employer] 03/31/2016 AM-SD / / [id number] documented as of this encounter Advance Directives * Full Code (Latest Code Status on File) Date Activated Date Inactivated Comments 07/28/2013 1:42 PM 08/03/2013 4:04 PM This order re flects the patients wishes and were consensually agreed upon. Care Teams Water Project Manager Relationship Specialty Start Date End Date Hipolito Coates MD [address] [place] [id number] PCP - General Family Medicine 10/22/20 documented as of this encounter
--- OUTSIDE RECORDS SUMMARY | 2024-06-27 22:51 | External Medical Summary | Summary of Care ---
Author Name Unknown Organization [facility] Address [address] [place] [address] Phone [phone] Care Team Providers Care Commissioned Defence Force Officer Name Role Phone Hipolito Coates MD Primary Care Provider [phone] Reason for Visit * Reason Onset Date Comments Medication Administration 05/12/2024 Flu an d/or Pneumo Inj Encounter Details Date Type Department Care Team (Late st Contact Info) Description 05/12/2024 2:30 PM EST Immunization Ancillary Department, [facility] [address] [place] [address] [facility] [address] [place] [address] Need for prophylactic vaccination and inoculation against influenza* Allergies No known active allergiesdocumented as of this encounter (statuses as of 05/12/2024) Medications OMEGA-3 FISH OIL 1000 MG PO [...] as of this encounter (statuses as of 05/12/2024) Active Problems Problem Noted Date Diagnosed Date History of pulmonary embolism 10/24/2022 Sensorineural hearing loss (SNHL) of both ears 0 10/25/2021 Chronic kidney disease, stage 3b 12/14/2020 Overview: Per CKD protocol Bifascicular bundle branch block 08/22/2019 Coronary artery disease invo lving [place] coronary artery of [place] heart without angina pectoris 11/08/2015 Abdominal aortic aneurysm without rupture 2015 Overview (04/28/2022): No intervention planned due to high risk of [place] and dialysis in the setting of elective [...] as of this encounter (statuses as of 05/12/2024) Resolved Problems Problem Noted Date Diagnosed Date [...] as of this encounter (statuses as of 05/12/2024) Immunizations Name Administration Dates Next Due Diptheria/Tetanus [...] 18 years and over) Not on file 06/23/202 3 Are you (or your family) luzma eless [...] 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 (5 years old or older) Answer Entry Date Author No 07/28/2013 8:00 PM Pina Garcia RN documented in this encounter Progress Notes * Graciela Johnson LPN - 05/12/2024 2:07 PM EST PRE - ADMINISTRATION DOCUMENTATION Are you experiencing any cold symptoms or fever? No Have you had Guillain-Duchesne Syndrome (an illness that causes paralysis) within the last 6 weeks? No Have you had the flu shot in the past? YES Have you ever had a reaction to the flu shot? No Graciela Johnson LPN, 05/12/2024 2:06 PM Immunization Administration Documentation Time Out Procedure Performed: Yes Patient Identified (Ask Name/Date of ): Yes Does the patient have a fever greater than 101 degrees today? No Patient allergic to latex? No VFC Stock: No Immunization(s) verified: Yes, Immunization Name: Flu, VIS Sheet(s) given: Yes Verified Side and Site: Yes Verified Shot(s) with Parent(s)/Patient: Yes documented in this encounter Plan of Treatment Upcoming Encounters Date Type Department Care Team (Late st Contact Info) Description 06/16/2024 1:20 PM EST Office Visit Family Practice [facility] [address] [place] [address] Hipolito Coates MD [address] [place] [id number] Scheduled Procedures Name Priority Associated Diagnoses Date/Ti [...] Additional history exists CKD HGB USE SMARTSET 92178 01/14/202501/14, 11/07/2022, 11/07/2022, Additional history exists CKD PHOS USE SMARTSET 77408 01/14/202512/30, 11/07/2022, 04/25/2021, Additional history exists AAA Monitoring 02/10/2025 02/11/2024, 06/02, 03/02/2022, Additional history exists Pneumococcal Vaccine: 65+ Years Completed 07/05/2015, 02/14/2010 Zoster Vaccines Completed 04/30/2020, 01/31, 07/02/2013 Influenza Vaccine (FLU shot) Completed 05/2024, 06/11/2023, 04/28/2022, Additional history exists HPV (Gardasil) Vaccine Aged Out No lo nger eligible based on patient's age to complete this topic Hepatitis B Vaccine Aged Out No longe r eligible based on patient's age to complete this topic MENINGOCOCCAL (MENACTRA/MENVEO) Aged Out No longer eligible based on patient's age to complete this topic documented as of this encounter Medical Devices Implanted Type Area Pattern Carrier Device Identifier Shelf Expiration Date Model / Serial / Lot Sut Steel 6 M654g - [id number] Implanted:Qty: 6 on 07/28/2013 at [place] [facility] [place] N/A: Chest DO NOT USE 01/29/2018 M654G / / [id number] Marker Coronary [facility]-Sd - [id number] Implanted:Qty: 2 on 07/28/2013 at [place] [facility] [place] N/A: Aorta [employer] 03/31/2016 [facility] / / [id number] documented as of this encounter Visit Diagnoses Diagnosis Need for prophylactic vaccination and inoculation against influenza- Primary documented in this encounter Advance Directives * Full Code (Latest Code Status on File) Date Activated Date Inactivated Comments 07/28/2013 1:42 PM 08/03/2013 4:04 PM This order re flects the patients wishes and were consensually agreed upon. Care Teams Commissioned Defence Force Officer Relationship Specialty Start Date End Date Hipolito Coates MD [address] [place] [phone] PCP - General Family Medicine 10/22/20 documented as of this encounter
--- OUTSIDE RECORDS SUMMARY | 2024-06-27 22:51 | External Medical Summary | Summary of Care ---
Author Name Unknown Organization [facility] Address [address] [facility] [place] [address] Phone [phone] Care Team Providers Care Business Systems Technician Name Role Phone Hipolito Coates MD Primary Care Provider [phone] Encounter Details Date Type Department Care Team (Late st Contact Info) Description 01/14/2024 Orders Only PATIENT PORTAL DO NOT DELETE THIS DEPT USED BY [place] [id number] Allergies No known active allergiesdocumented as of this encounter (statuses as of 01/14/2024) Medications Medication Sig Dispensed Refills Start Date [...] as of this encounter (statuses as of 01/14/2024) Active Problems Problem Noted Date Diagnosed Date History of pulmonary embolism 10/24/2022 Sensorineural hearing loss (SNHL) of both ears 0 10/25/2021 Chronic kidney disease, stage 3b 12/14/2020 Overview: Per CKD protocol Bifascicular bundle branch block 08/22/2019 Coronary artery disease invo lving [place] coronary artery of [place] heart without angina pectoris 11/08/2015 Abdominal aortic aneurysm without rupture 2015 Overview: No intervention planned due to high risk of [place] and dialysis in the setting of elective surgery 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 Overview: Off pump coronary artery bypass times 4: NICOLE - LAD, Aorta - PDA - PM, Aorta - Int HTN, goal below 130/80 05/21/2013 Gastroesophageal reflux disease without esophagi tis 05/21/2013 Dyslipidemia 02/14/2010 Morbid obesity 02/14/2010 Overview: ICD-10 update of inactive term documented as of this encounter (statuses as of 01/14/2024) Resolved Problems Problem Noted Date Diagnosed Date [...] 07/07/201510/21 Overview: 25 pack years stopped in 1983 Kidney disease, chronic, sta ge III (GFR 30-59 ml/min) 10/26/2013 05/13/2020 Overview: Per CKD protocol CAD (coronary artery disease) 07/30/2013 11/08/2015 Body mass index (BMI) of 40.0-44.9 in adult 10/17/2010 02/19/2017 Primary localized osteoarthrosis, lower leg 02/14/2010 10/21/2020 documented as of this encounter (statuses as of 01/14/2024) Immunizations Name Administration Dates Next Due Diptheria/Tetanus [...] Influenza, Split, I IV3, With Preserve, Inj 03/14/2014,05/21/2013,05/10/2012,1103/2011,04/18/2010 05/10/2013 Seasonal Influenza, Trivalen t, Adjuvanted, 65+ [...] 12/22/2022 Does the household have a re lar source of income? (Household - for ages [...] Description 06/16/2024 1:20 PM EST Office Visit [facility] [address] [place] [address] Hipolito Coates MD [address] [place] [address] Scheduled Procedures Name Priority Associated Diagnoses Date/Ti me COLONOSCOPY FLEXIBLE PROXIMA L DIAGNOSTIC Recall Colon cancer screening Special screening for malignant neoplasms, colon Health Maintenance Due Date Last Done Comments Albumin/Creatinine Ratio 10/04/2018 018, 07/31/2016, 07/05/2015, Additional history exists COVID-19 Vaccine ( - 2022- season) 2023 DTaP,Tdap,and Td Vaccines (2 - Td or Tdap) 05/21/2023 05/21/2013, 07/02/2006 CKD HGB USE SMARTSET 79585 11/08/202311/07, 11/07/2022, 10/25/2021, Additional history exists CKD PHOS USE SMARTSET 43398 11/08/2023 050 03/2023, 04/25/2021, 12/26/2019, Additional history exists GFR 12/11/2023 06/11/2023, 0 03/2023, 02/23/2022, Additional history exists Depression Screening 2023 12/22/2022 Influenza Vaccine (FLU shot) (#1) 2024 06/11/2023, 04/28/2022, 04/25/2021, Additional history exists AAA Monitoring 06/26/2024 06/26/2023, 09/0 07/2021, 12/22/2020, Additional history exists Pneumococcal Vaccine: 65+ Years Completed 07/05/2015, 02/14/2010 Zoster Vaccines Completed 04/30/2020, 01/31, 07/02/2013 HPV (Gardasil) Vaccine Aged Out No lo nger eligible based on patient's age to complete this topic Hepatitis B Vaccine Aged Out No longe r eligible based on patient's age to complete this topic MENINGOCOCCAL (MENACTRA/MENVEO) Aged Out No longer eligible based on patient's age to complete this topic documented as of this encounter Medical Devices Implanted Type Area Costume Technician Device Identifier Shelf Expiration Date Model / Serial / Lot Sut Steel 6 M654g - [id number] Implanted:Qty: 6 on 07/28/2013 at [place] [facility] [place] N/A: Chest DO NOT USE 01/29/2018 M654G / / [id number] Marker Coronary Am-Sd - [id number] Implanted:Qty: 2 on 07/28/2013 at [place] [facility] [place] N/A: Aorta [employer] 03/31/2016 AM-SD / / [id number] documented as of this encounter Advance Directives * Full Code (Latest Code Status on File) Date Activated Date Inactivated Comments 07/28/2013 1:42 PM 08/03/2013 4:04 PM This order r eflects the patients wishes and were consensually agreed upon. Care Teams Business Systems Technician Relationship Specialty Start Date End Date Hipolito Coates MD [address] [place] [id number] PCP - General Family Medicine 10/22/20 documented as of this encounter
--- OUTSIDE RECORDS SUMMARY | 2024-06-27 22:51 | External Medical Summary | Summary of Care ---
Author Name Unknown Organization [facility] Address [address] [place] [address] Phone [phone] Care Team Providers Care Trimming Operator Name Role Phone Hipolito Coates MD Primary Care Provider [phone] [phone] Reason for Visit * Reason Comments Outpatient Testing Encounter Details Date Type Department Care Team (Late st Contact Info) Description 01/15/2024 9:20 AM EDT Laboratory Laboratory, [facility] [address] [place] [address] [facility] [address] [place], [place] [id number] HTN, goal below 140/90; Chronic kidney disease, unspecified CKD stage Allergies No known active allergiesdocumented as of this encounter (statuses as of 01/15/2024) Medications Medication Sig Dispensed Refills Start Date [...] as of this encounter (statuses as of 01/15/2024) Active Problems Problem Noted Date Diagnosed Date History of pulmonary embolism 10/24/2022 Sensorineural hearing loss (SNHL) of both ears 0 10/25/2021 Chronic kidney disease, stage 3b 12/14/2020 Overview: Per CKD protocol Bifascicular bundle branch block 08/22/2019 Coronary artery disease invo lving [place] coronary artery of [place] heart without angina pectoris 11/08/2015 Abdominal aortic aneurysm without rupture 2015 Overview: No intervention planned due to high risk of [place] and dialysis in the setting of elective surgery 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 Overview: Off pump coronary artery bypass times 4: NICOLE - LAD, Aorta - PDA - PM, Aorta - Int HTN, goal below 130/80 05/21/2013 Gastroesophageal reflux disease without esophagi tis 05/21/2013 Dyslipidemia 02/14/2010 Morbid obesity 02/14/2010 Overview: ICD-10 update of inactive term documented as of this encounter (statuses as of 01/15/2024) Resolved Problems Problem Noted Date Diagnosed Date [...] as of this encounter (statuses as of 01/15/2024) Immunizations Name Administration Dates Next Due Diptheria/Tetanus [...] 1:20 PM EST Office Visit Family Practice [facility] [address] [address] Hipolito Coates MD [address] [place] [address] Pending Results Name Type Priority Associated Diagnoses Date /Time HGB Lab Routine Chronic kidney disease, unspecified CKD stage 01/15/2024 9:05 AM EDT PHOSPHORUS Lab Routine Chronic kidney disease, unspecified CKD stage 01/15/2024 9:05 AM EDT COMPREHENSIVE METABOLIC PANEL Lab Routine Chronic kidney disease, unspecified CKD stage 01/15/2024 9:05 AM EDT ALBUMIN / CREATININE RATIO, URINE Lab Routine Chronic kidney disease, unspecified CKD stage 01/15/2024 9:07 AM EDT Scheduled Procedures Name Priority Associated Diagnoses Date/Ti me COLONOSCOPY FLEXIBLE PROXIMA L DIAGNOSTIC Recall Colon cancer screening Special screening for malignant neoplasms, colon Health Maintenance Due Date Last Done Comments Albumin/Creatinine Ratio 10/04/2018 018, 07/31/2016, 07/05/2015, Additional history exists COVID-19 Vaccine ( - 2022- season) 2023 DTaP,Tdap,and Td Vaccines (2 - Td or Tdap) 05/21/2023 05/21/2013, 07/02/2006 CKD HGB USE SMARTSET 86853 11/08/202311/07, 11/07/2022, 10/25/2021, Additional history exists CKD PHOS USE SMARTSET 97188 11/08/2023 05/0 03/2023, 04/25/2021, 12/26/2019, Additional history exists GFR 12/11/2023 06/11/2023, 05/0 03/2023, 02/23/2022, Additional history exists Depression Screening [...] this encounter Medical Devices Implanted Type Area Math Professor Device Identifier Shelf Expiration Date Model / Serial / Lot Sut Joe 6 M654g - [id number] Implanted:Qty: 6 on 07/28/2013 at [place] [facility] [place] N/A: Chest DO NOT USE 01/29/2018 M654G / / [id number] Marker Coronary [employer] - [id number] Implanted:Qty: 2 on 07/28/2013 at OR [facility] [place] N/A: Aorta [employer] 03/31/2016 [facility] / / [id number] documented as of this encounter Visit Diagnoses Diagnosis HTN, goal below 140/90 Unspecified essential hypertension Chronic kidney disease, unspecified CKD stage documented in this encounter Advance Directives * Full Code (Latest Code Status on File) Date Activated Date Inactivated Comments 07/28/2013 1:42 PM 08/03/2013 4:04 PM This order re flects the patients wishes and were consensually agreed upon. Care Teams Trimming Operator Relationship Specialty Start Date End Date Hipolito Coates MD [address] [place] [address] PCP - General Family Medicine 10/22/20 documented as of this encounter
--- OUTSIDE RECORDS SUMMARY | 2024-06-27 22:51 | External Medical Summary | Summary of Care ---
Author Name Unknown Organization [facility] Address [address] [place] [address] Phone [phone] Care Team Providers Care Sex Crimes Detective Name Role Phone Hipolito Coates MD Primary Care Provider [phone] [phone] Reason for Visit * Reason Onset Date Comments Test Results 02/12/2024 US AORTA Encounter Details Date Type Department Care Team (Late st Contact Info) Description 02/12/2024 Telephone Family Practice [facility] [address] [place] [address] Hipolito Coates MD [address] [place] [address] Test Results ( US AORTA) Allergies No known active allergiesdocumented as of this encounter (statuses as of 02/20/2024) Medications Medication Sig Dispensed Refills Start Date [...] the morning. 90 Capsule 2 08/07/2023 Active Lisinopril 5 MG Oral Tablet [...] the morning. 45 Tablet 3 01/08/2024 Active Apixaban 5 MG Oral Tablet (Eliquis) Take 1 Tablet by mouth in the morning and 1 Tablet before bedtime. 180 Tablet 1 01/28/2024 Active documented as of this encounter (statuses as of 02/20/2024) Active Problems Problem Noted Date Diagnosed Date History of pulmonary embolism 10/24/2022 Sensorineural hearing loss (SNHL) of both ears 0 10/25/2021 Chronic kidney disease, stage 3b 12/14/2020 Overview: Per CKD protocol Bifascicular bundle branch block 08/22/2019 Coronary artery disease invo lving [place] coronary artery of [place] heart without angina pectoris 11/08/2015 Abdominal aortic aneurysm without rupture 2015 Overview: No intervention planned due to high risk of [place] and dialysis in the setting of elective surgery 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 Overview: Off pump coronary artery bypass times 4: NICOLE - LAD, Aorta - PDA - PM, Aorta - Int HTN, goal below 130/80 05/21/2013 Gastroesophageal reflux disease without esophagi tis 05/21/2013 Dyslipidemia 02/14/2010 Morbid obesity 02/14/2010 Overview: ICD-10 update of inactive term documented as of this encounter (statuses as of 02/20/2024) Resolved Problems Problem Noted Date Diagnosed Date [...] as of this encounter (statuses as of 02/20/2024) Immunizations Name Administration Dates Next Due Diptheria/Tetanus [...] Influenza, Split, I IV3, With Preserve, Inj 03/14/2014,05/21/2013,05/10/2012,11/03/2011,04/18/2010 05/10/2013 Seasonal Influenza, Trivalen t, Adjuvanted, 65+ [...] No 07/28/2013 documented as of this encounter Miscellaneous Notes * Telephone Encounter - Hipolito Coates MD - 02/12/2024 8:25 PM EDT Please see vascular surgery note from 2 years ago when they decided against surgery. I will forwardto Dr. Noonan to have his nurses reach out to the family to see if there's a change of heart. Dr. Coates * Telephone Encounter - Sherin Bill TECH - 02/12/2024 7:10 PM EDT Hello- The radiologist discovered an unexpected or indeterminate finding on Thomas O Walker ([id number]) andasks that you review the following report. Study Type: US AORTA Date of Study: 02/12/2024 IMPRESSION Abdominal aortic aneurysm, measuring up to 7.9 cm. Recommend vascular surgery consultation. Please respond to this encounter to acknowledge receipt of this message and take responsibility to ensure this report is reviewed. Thank you, MELIZA Weeks Client Service Rep Diagnostic Medicine Neal documented in this encounter Plan of Treatment Upcoming Encounters Date Type Department Care Team (Late st Contact Info) Description 06/16/2024 1:20 PM EST Office Visit Family Practice [facility] [address] [place] [address] Hipolito Coates MD [address] [place] [address] Scheduled Procedures Name Priority Associated Diagnoses Date/Ti me COLONOSCOPY FLEXIBLE PROXIMA L DIAGNOSTIC Recall Colon cancer screening Special screening for malignant neoplasms, colon Health Maintenance Due Date Last Done Comments COVID-19 Vaccine ( season) 2023 DTaP,Tdap,and Td Vaccines (2 - Td or Tdap) 05/21/2023 05/21/2013, 07/02/2006 Adult Wellness Visit 2023 12/22/2022 Depression Screening 2023 12/22/2022 Influenza Vaccine (FLU shot) (#1) 2024 06/11/2023, 04/28/2022, 04/25/2021, Additional history exists GFR 07/17/2024 01/15/2024, 06/01, 11/07/2022, Additional history exists Albumin/Creatinine Ratio 01/14/2025 024, 10/04/2017, 07/31/2016, Additional history exists CKD HGB USE SMARTSET 56872 01/14/202501/14, 11/07/2022, 11/07/2022, Additional history exists CKD PHOS USE SMARTSET 13240 01/14/202512/30, 11/07/2022, 04/25/2021, Additional history exists AAA [...] this encounter Medical Devices Implanted Type Area Sales Floor Team Leader Device Identifier Shelf Expiration Date Model / Serial / Lot Sut Steel 6 M654g - [id number] Implanted:Qty: 6 on 07/28/2013 at [place] [facility] [place] N/A: Chest DO NOT USE 01/29/2018 M654G / / [id number] Marker Coronary [facility] - [id number] Implanted:Qty: 2 on 07/28/2013 at [place] [facility] [place] N/A: Aorta [employer] 03/31/2016 [facility] / / [id number] documented as of this encounter Advance Directives * Full Code (Latest Code Status on File) Date Activated Date Inactivated Comments 07/28/2013 1:42 PM 08/03/2013 4:04 PM This order re flects the patients wishes and were consensually agreed upon. Care Teams Sex Crimes Detective Relationship Specialty Start Date End Date Hipolito Coates MD [address] [place] [address] PCP - General Family Medicine 10/22/20 documented as of this encounter
--- OUTSIDE RECORDS SUMMARY | 2024-06-27 22:51 | External Medical Summary ---
Author Name Unknown Address Unknown Organization K01:[facility] [address] [place] [address] Laboratory Report Ordering Provider Test Date Status EMILY TAN 01/15/2024 09:05:05 Final Observation Date Value Abnormality Reference (Units ) Status Hemoglobin 01/15/2024 09:05:05 13.2 Below low normal 14 .0-16.8 (g/dL) Final Performing Location [facility] - [address] [place] [address]
--- OUTSIDE RECORDS SUMMARY | 2024-06-27 22:51 | External Medical Summary | Summary of Care ---
Author Name Unknown Organization [facility] Address [address] [place] [address] Phone [phone] Care Team Providers Care Dna Analyst Name Role Phone Hipolito Coates MD Primary Care Provider [phone] [phone] Reason for Visit * Reason Onset Date Comments Health Maintenance 01/10/2024 Encounter Details Date Type Department Care Team (Late st Contact Info) Description 01/10/2024 Telephone Family Practice [facility] [address] [place] [address] Hipolito Coates MD [address] [place] [address] Health Maintenance Allergies No known active allergiesdocumented as of this encounter (statuses as of 01/10/2024) Medications Medication Sig Dispensed Refills Start Date [...] as of this encounter (statuses as of 01/10/2024) Active Problems Problem Noted Date Diagnosed Date History of pulmonary embolism 10/24/2022 Sensorineural hearing loss (SNHL) of both ears 0 10/25/2021 Chronic kidney disease, stage 3b 12/14/2020 Overview: Per CKD protocol Bifascicular bundle branch block 08/22/2019 Coronary artery disease invo lving [place] coronary artery of [place] heart without angina pectoris 11/08/2015 Abdominal aortic aneurysm without rupture 2015 Overview: No intervention planned due to high risk of [place] and dialysis in the setting of elective surgery 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 Overview: Off pump coronary artery bypass times 4: NICOLE - LAD, Aorta - PDA - PM, Aorta - Int HTN, goal below 130/80 05/21/2013 Gastroesophageal reflux disease without esophagi tis 05/21/2013 Dyslipidemia 02/14/2010 Morbid obesity 02/14/2010 Overview: ICD-10 update of inactive term documented as of this encounter (statuses as of 01/10/2024) Resolved Problems Problem Noted Date Diagnosed Date [...] as of this encounter (statuses as of 01/10/2024) Immunizations Name Administration Dates Next Due Diptheria/Tetanus [...] encounter Miscellaneous Notes * Telephone Encounter - Ariel TalleySWATHI ferreira - 01/10/2024 11:16 AM EDT Care Gaps Comprehensive Care Outreach Last Office/Telemedicine Visit: 06/11/2023 (in office), Visit date not found (telemedicine) Next Office Visit: 06/16/2024 Hemoglobin AIC Results: Lab Results Component Value Date/Time HEMOGLOBIN A1C - [facility] 5.6 04/25/2021 04:20 PM HEMOGLOBIN A1C - [facility] 4.8 07/29/2013 03:45 AM BP Readings from Last 1 Encounters: 08/07/23 132/82 Reviewed Health Maintenance below: Health Maintenance Topic Date Due Albumin/Creatinine Ratio 10/04/2018 COVID-19 Vaccine (1 - 2022- season) Never done DTaP,Tdap,and Td Vaccines (2 - Td or Tdap) 05/21/2023 CKD HGB USE SMARTSET 29988 11/08/2023 CKD PHOS USE SMARTSET 42864 11/08/2023 GFR 12/11/2023 Depression Screening 2023 Influenza Vaccine (FLU shot) (1) 03/02/2024 AAA Monitoring 06/26/2024 Labs ordered will walk in Aaa order is placed he will schedule online Care Gap Outreach Action Taken: Spoke to patient documented in this encounter Plan of Treatment Upcoming Encounters Date Type Department Care Team (Late st Contact Info) Description 06/16/2024 1:20 PM EST Office Visit [facility] [address] [place] [address] Hipolito Coates MD [address] [place] [address] Scheduled Orders Name Type Priority Associated Diagnoses Orde r Schedule HGB Lab Routine Chronic kidney disease, unspecified CKD stage Expected: 01/10/2024, Expires: 01/09/2025 PHOSPHORUS Lab Routine Chronic kidney disease, unspecified CKD stage Expected: 01/10/2024, Expires: 01/09/2025 COMPREHENSIVE METABOLIC PANEL Lab Routine Chronic kidney disease, unspecified CKD stage Expected: 01/10/2024, Expires: 01/09/2025 ALBUMIN / CREATININE RATIO, URINE Lab Routine Chronic kidney disease, unspecified CKD stage Expected: 01/10/2024 (Approximate), Expires: 01/09/2025 Scheduled Procedures Name Priority Associated Diagnoses Date/Ti me COLONOSCOPY FLEXIBLE PROXIMA L DIAGNOSTIC Recall Colon cancer screening Special screening for malignant neoplasms, colon Health Maintenance Due Date Last Done Comments Albumin/Creatinine Ratio 10/04/2018 018, 07/31/2016, 07/05/2015, Additional history exists COVID-19 Vaccine ( - 2022- season) 2023 DTaP,Tdap,and Td Vaccines (2 - Td or Tdap) 05/21/2023 05/21/2013, 07/02/2006 CKD HGB USE SMARTSET 68961 11/08/202311/07, 11/07/2022, 10/25/2021, Additional history exists CKD PHOS USE SMARTSET 06950 11/08/2023 05/0 03/2023, 04/25/2021, 12/26/2019, Additional history exists GFR 12/11/2023 06/11/2023, 05/0 03/2023, 02/23/2022, Additional history exists Depression Screening 2023 12/22/2022 Influenza Vaccine (FLU shot) (#1) 2024 06/11/2023, 04/28/2022, 04/25/2021, Additional history exists AAA Monitoring 06/26/2024 06/26/2023, 090 07/2021, 12/22/2020, Additional history exists Pneumococcal Vaccine: [...] this encounter Medical Devices Implanted Type Area Program Writer Device Identifier Shelf Expiration Date Model / Serial / Lot Sut Steel 6 M654g - [id number] [place]planted:Qty[place] 6 on [place] [facility] [place] Chest DO NOT USE 01/29/2018 M654G / / [id number] Marker Coronary [facility] - [id number] Implanted:Qty: 2 on 07/28/2013 [place] [facility] [place]: Aorta [employer] 03/31/2016 [facility] / / [id number] documented as of this encounter Visit Diagnoses Diagnosis Chronic kidney disease, unspecified CKD stage- Primary documented in this encounter Advance Directives * Full Code (Latest Code Status on File) Date Activated Date Inactivated Comments 07/28/2013 1:42 PM 08/03/2013 4:04 PM This order re flects the patients wishes and were consensually agreed upon. Care Teams Dna Analyst Relationship Specialty Start Date End Date Hipolito Coates MD [address] [address] PCP - General Family Medicine 10/22/20 documented as of this encounter
--- OUTSIDE RECORDS SUMMARY | 2024-06-27 22:51 | External Medical Summary ---
Author Name Unknown Address Unknown Organization K01:[facility] [place] [address] [place] [address] Laboratory Report Ordering Provider Test Date Status EMILY TAN 01/15/2024 09:07:17 Final Normal: <30 mg/g creatinine< br/>High: 30-300 mg/g creatinine
Very High: >300 mg/g creatinine
Nephrotic: >2200 mg/g creatinine Observation Date Value Abnormality Reference (Units ) Status Albumin, Urine 01/15/2024 09:07:17 5.82 (mg/dL) Final Creatinine, Urine 01/15/2024 09:07:17 167 (mg/dL) Final Albumin/Creatinine [Mass Ratio] in Urine 01/15/2024 09:07:17 35 Above high normal <30 (mg/g Creat) Final Performing Location [facility] [place] [address] [place] [address]
--- OUTSIDE RECORDS SUMMARY | 2024-06-27 22:51 | External Medical Summary | Summary of Care ---
Author Name Unknown Organization [facility] Address [address] [place] [address] Phone [phone] Care Team Providers Care Sheet Rock Applier Name Role Phone Hipolito Coates MD Primary Care Provider [phone] [phone] Reason for Visit * Reason Onset Date Comments MyCode Nonconsent - Not interested at this time 01/15/2024 Encounter Details Date Type Department Care Team (Late st Contact Info) Description 01/15/2024 Orders Only Outcomes Research Department [address], [place] [id number] Maribel Pichardo CHRA MyCode Nonconsent Documentation Allergies No known active allergiesdocumented as of [...] block 08/22/2019 Coronary artery disease 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 (5 years old or older) No 07/28/2013 documented as of this encounter Progress Notes * Maribel Pichardo CHRA - 01/15/2024 9:04 AM EDT MyCode Nonconsent Documentation Thomas Paez was approached in the clinic regarding participation in the MyCode Project and didnot consent. documented in this encounter Plan of Treatment Upcoming Encounters Date Type Department Care Team (Late st Contact Info) Description 01/15/2024 9:20 AM EDT Laboratory Laboratory, [place] [address] [place] [address] [place] [address] [place] [address] HTN, goal below 140/90; Chronic kidney disease, unspecified CKD stage 06/16/2024 1:20 PM EST Office Visit Family [facility] [address] [address] Hipolito Coates MD [address] [place] [address] Scheduled Procedures Name Priority Associated Diagnoses Date/Ti me COLONOSCOPY FLEXIBLE PROXIMA L DIAGNOSTIC Recall Colon cancer screening Special screening for malignant neoplasms, colon Health Maintenance Due Date Last Done Comments Albumin/Creatinine Ratio 10/04/2018 018, 07/31/2016, 07/05/2015, Additional history exists COVID-19 Vaccine (1 - 2022- season) 2023 DTaP,Tdap,and Td Vaccines (2 - Td or Tdap) 05/21/2023 05/21/2013, 07/02/2006 CKD HGB USE SMARTSET 24250 11/08/202311/07, 11/07/2022, 10/25/2021, Additional history exists CKD PHOS USE SMARTSET 56623 11/08/2023 05/0 03/2023, 04/25/2021, 12/26/2019, Additional history [...] this encounter Medical Devices Implanted Type Area Ocularist Device Identifier Shelf Expiration Date Model / Serial / Lot Sut Steel 6 M654g - [id number] Implanted:Qty: 6 on 07/28/2013 at [place] [facility] [place] N/A: Chest DO NOT USE 01/29/2018 M654G / / [id number] Marker Coronary [facility] - [id number] Implanted:Qty: 2 on 07/28/2013 at [facility] N/A: Aorta [employer] 03/31/2016 [facility] / / [id number] documented as of this encounter Advance Directives * Full Code (Latest Code Status on File) Date Activated Date Inactivated Comments 07/28/2013 1:42 PM 08/03/2013 4:04 PM This order re flects the patients wishes and were consensually agreed upon. Care Teams Sheet Rock Applier Relationship Specialty Start Date End Date Hipolito Coates MD [address] [place] [address] PCP - General Family Medicine 10/22/20 documented as of this encounter
--- OUTSIDE RECORDS SUMMARY | 2024-06-27 22:51 | External Medical Summary | Summary of Care ---
Author Name Unknown Organization [facility] Address [address] [facility] [place] [address] Phone [phone] Care Team Providers Care Check Processing Clerk Name Role Phone Hipolito Coates MD Primary Care Provider [phone] Encounter Details Date Type Department Care Team (Late st Contact Info) Description 05/12/2024 Orders Only PATIENT PORTAL DO NOT DELETE THIS DEPT USED BY [place] [id number] Allergies No known active allergiesdocumented as of [...] block 08/22/2019 Coronary artery disease invo lving [place] coronary artery of [place] heart without angina pectoris 11/08/2015 Abdominal aortic [...] Vac., MDV , IM, 0.5 mL (Fluzone) 03/14/2014,05/21/2013,05/10/2012,03/2011,04/18/2010 05/10/2013 Seasonal Influenza Virus Vac cine, Unspecified [...] Job Start Date Job End Date retired [employer] at age 59 Not on file Not [...] Pina Garcia RN documented in this encounter Plan of Treatment Upcoming Encounters Date Type Department Care Team (Late st Contact Info) Description 05/12/2024 2:30 PM EST Immunization Ancillary Department, [address] [address] [place] [address] [facility] [address] 06/16/2024 1:20 PM EST Office Visit Family Practice [facility] [address] [place] [address] Hipolito Coates MD [address] [place] [address] Scheduled Procedures Name Priority Associated Diagnoses Date/Ti me COLONOSCOPY FLEXIBLE PROXIMA L DIAGNOSTIC Recall Colon cancer screening Special screening for malignant neoplasms, colon Health Maintenance Due Date Last Done Comments DTap/Tdap Vaccines (2 - Td or Tdap) 05/21/2023 05/21/2013, 07/02/2006 Adult Wellness Visit 2023 12/22/2022 Depression Screening 2023 12/22/2022 COVID-19 Vaccine ( season) 2024 Influenza Vaccine (FLU shot) (#1) 2024 06/11/2023, 04/28/2022, 04/25/2021, Additional history exists GFR 07/17/2024 01/15/2024, 06/01, 11/07/2022, Additional history exists Albumin/Creatinine Ratio 01/14/2025 024, 10/04/2017, 07/31/2016, Additional history exists CKD HGB USE SMARTSET 03753 01/14/202501/14, 11/07/2022, 11/07/2022, Additional history exists CKD PHOS USE SMARTSET 50102 01/14/202512/30, 11/07/2022, 04/25/2021, Additional history exists AAA [...] this encounter Medical Devices Implanted Type Area Family Coach Device Identifier Shelf Expiration Date Model / Serial / Lot Sut Steel 6 M654g - [id number] Implanted:Qty: 6 on 07/28/2013 at [place] [facility] [place] N/A: Chest DO NOT USE 01/29/2018 M654G / / [id number] Marker Coronary [facility] - [id number] Implanted:Qty: 2 on 07/28/2013 at [place] [facility] [place] N/A: Aorta [employer] 03/31/2016 [facility] / / [id number] documented as of this encounter Advance Directives * Full Code (Latest Code Status on File) Date Activated Date Inactivated Comments 07/28/2013 1:42 PM 08/03/2013 4:04 PM This order re flects the patients wishes and were consensually agreed upon. Care Teams Check Processing Clerk Relationship Specialty Start Date End Date Hipolito Coates MD [address] [place] [address] PCP - General Family Medicine 10/22/20 documented as of this encounter
--- OUTSIDE RECORDS SUMMARY | 2024-06-27 22:51 | External Medical Summary | Summary of Care ---
Author Name Unknown Organization [facility] Address [address] [place] [address] Phone [phone] Care Team Providers Care Chucking Machine Set Up Operator Tool Name Role Phone Britney Diaz MD Primary Care Provider [phone] Reason for Visit * Reason Comments Medication Refill Encounter Details Date Type Department Care Team (Late st Contact Info) Description 05/08/2024 Refill Family Practice [facility] [address] [facility] [place] [address] Britney Diaz MD [address] [facility] [place] [address] Encounter for long-term (current) use of medications*; GERD (gastroesophageal reflux disease) Allergies No known active allergiesdocumented as of this encounter (statuses as of 05/08/2024) Medications Medication Sig Dispensed Refills Start Date End Date Status OMEGA-3 FISH OIL 1000 MG PO CAPSIndications:Bod y mass index 40 and over, adult,Dyslipidemia, goal LDL below 130 Take one capsule by mouth twice a day 60 Cap 5 02/14/2010 Active ASPIRIN EC 81 MG PO TBECIndications:Bod y mass index 40 and over, adult Take one pill daily 100 Tab 3 02/14/2010 Active GLUCOSAMINE 500 MG PO CAPSIndications:Bod y mass index 40 and over, adult,Primary localized osteoarthrosis, lower leg One pill by mouth a day 100 Cap 11 02/14/2010 Active GARLIC OIL 500 MG PO CAPSIndications:Isabel aby localized osteoarthrosis, lower leg takes one twice a day 60 Cap 6 05/10/2011 Active Rosuvastatin Calcium 40 MG Oral Tablet (Crestor)Indication s:Dyslipidemia Take 1 Tablet by mouth in the morning. 90 Tablet 3 08/07/2023 Active Cyanocobalamin 1000 MCG Oral Tablet ([facility] Vitamin B-12) Take 1 Tablet by mouth in the morning. 90 Tablet 08/07/2023 Active Lisinopril 5 MG Oral Tablet (Prinivil)Indicatio ns:Coronary artery disease involving nonautologous biological coronary bypass [...] before bedtime. 180 Tablet 1 01/28/2024 Active Omeprazole 20 MG Oral Capsule Delayed Release (PriLOSEC)Indicatio ns:GERD (gastroesophageal reflux disease) Take 1 Capsule by mouth in the morning. 90 Capsule 05/08/2024 Active Omeprazole 20 MG Oral Capsule Delayed Release (PriLOSEC)Indicatio ns:GERD (gastroesophageal reflux disease) Take 1 Capsule by mouth in the morning. 90 Capsule 2 08/07/2023 05/08/2024 Discontinue d(Refill) documented as of this encounter (statuses as of 05/08/2024) Active Problems Problem Noted Date Diagnosed Date History of pulmonary embolism 10/24/2022 Sensorineural hearing loss (SNHL) of both ears 0 10/25/2021 Chronic kidney disease, stage 3b 12/14/2020 Overview: Per CKD protocol Bifascicular bundle branch block 08/22/2019 Coronary artery disease invo lving [place] coronary artery of [place] heart without angina pectoris 11/08/2015 Abdominal aortic [...] as of this encounter (statuses as of 05/08/2024) Resolved Problems Problem Noted Date Diagnosed Date [...] as of this encounter (statuses as of 05/08/2024) Immunizations Name Administration Dates Next Due Diptheria/Tetanus [...] encounter Miscellaneous Notes * Telephone Encounter - Joyce Brantley RPh - 05/08/2024 2:21 PM ESTSigned Prescriptions: Disp Refills Omeprazole 20 MG Oral Capsule Delayed Rele*90 Cap*0 Sig: Take 1 Capsule by mouth in the morning.Authorizing Provider: BRITNEY DIAZ User: JOYCE BRANTLEY * Telephone Encounter - Joyce Brantley RPh - 05/08/2024 2:20 PM EST RX authorized. Zero refills given until upcoming appt. 06/16/2024 Per refill protocol patient needs magnesium and vitamin B-12 labs on file within the past 2 years while using PPIs. Lab work ordered. Patient may obtain with next routine labs. Thank you, Joyce Brantley, PharmD Clinical Pharmacist [facility] 05/08/24 2:20 PM [phone] documented in this encounter Plan of Treatment Upcoming Encounters Date Type Department Care Team (Late st Contact Info) Description 06/16/2024 1:20 PM EST Office Visit Family Practice [facility] [address] [facility] [place] [address] Britney Diaz MD [address] [place] [address] Scheduled Orders Name Type Priority Associated Diagnoses Orde r Schedule MAGNESIUM Lab Routine Encounter for long-term (current) use of medications Expected: 05/08/2024 (Approximate), Expires: 05/08/2025 VITAMIN B12 Lab Routine Encounter for long-term (current) use of medications Expected: 05/08/2024 (Approximate), Expires: 05/08/2025 Scheduled Procedures Name Priority Associated Diagnoses Date/Ti [...] Additional history exists CKD HGB USE SMARTSET 49470 01/14/202501/14, 11/07/2022, 11/07/2022, Additional history exists CKD PHOS USE SMARTSET 68005 01/14/202512/30, 11/07/2022, 04/25/2021, Additional history exists AAA [...] this encounter Medical Devices Implanted Type Area Buggyman Device Identifier Shelf Expiration Date Model / Serial / Lot Sut Joe 6 [id number] - [id number] Implanted:Qty: 6 on 07/28/2013 at OR [facility] N/A: Chest DO NOT USE 01/29/2018 M654G / / [id number] Marker Coronary [facility] - [id number] Implanted:Qty: 2 on 07/28/2013 at OR [facility] N/A: Aorta [employer] 03/31/2016 [facility] / / [id number] documented as of this encounter Visit Diagnoses Diagnosis Encounter for long-term (current) use of medications- Primary Encounter for long-term (current) use of other medications GERD (gastroesophageal reflux disease) Esophageal reflux documented in this encounter Advance Directives * Full Code (Latest Code Status on File) Date Activated Date Inactivated Comments 07/28/2013 1:42 PM 08/03/2013 4:04 PM This order re flects the patients wishes and were consensually agreed upon. Care Teams Chucking Machine Set Up Operator Tool Relationship Specialty Start Date End Date Britney Diaz MD [address] [place] [address] PCP - General Family Medicine 10/22/20 documented as of this encounter
--- OUTSIDE RECORDS SUMMARY | 2024-06-27 22:51 | External Medical Summary | Summary of Care ---
Author Name Unknown Organization [facility] Address [address] [place] [address] Phone [phone] Care Team Providers Care Publishing Systems Analyst Name Role Phone Britney Diaz MD Primary Care Provider [phone] Reason for Visit * Reason Comments Medication Refill Encounter Details Date Type Department Care Team (Late st Contact Info) Description 01/27/2024 Refill Family Practice [facility] [address] [facility] [place] [id number] Britney Diaz MD [address] [place] [address] Allergies No known active allergiesdocumented as of this encounter (statuses as of 01/28/2024) Medications Medication Sig Dispensed Refills Start Date [...] before bedtime. 180 Tablet 1 01/28/2024 Active Apixaban 5 MG Oral Tablet (Eliquis) Take 1 Tablet by mouth in the morning and 1 Tablet before bedtime. 180 Tablet 1 08/07/2023 01/27/2024 Discontinue d(Refill) documented as of this encounter (statuses as of 01/28/2024) Active Problems Problem Noted Date Diagnosed Date History of pulmonary embolism 10/24/2022 Sensorineural hearing loss (SNHL) of both ears 0 10/25/2021 Chronic kidney disease, stage 3b 12/14/2020 Overview: Per CKD protocol Bifascicular bundle branch block 08/22/2019 Coronary artery disease invo lving [place] coronary artery of [place] heart without angina pectoris 11/08/2015 Abdominal aortic aneurysm without rupture 2015 Overview: No intervention planned due to high risk of [place] and dialysis in the setting of elective surgery 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 Overview: Off pump coronary artery bypass times 4: NICOLE - LAD, Aorta - PDA - PM, Aorta - Int HTN, goal below 130/80 05/21/2013 Gastroesophageal reflux disease without esophagi tis 05/21/2013 Dyslipidemia 02/14/2010 Morbid obesity 02/14/2010 Overview: ICD-10 update of inactive term documented as of this encounter (statuses as of 01/28/2024) Resolved Problems Problem Noted Date Diagnosed Date [...] as of this encounter (statuses as of 01/28/2024) Immunizations Name Administration Dates Next Due Diptheria/Tetanus [...] Influenza, Split, I IV3, With Preserve, Inj 03/14/2014,05/21/2013,05/10/2012,03/2011,04/18/2010 05/10/2013 Seasonal Influenza, Trivalen t, Adjuvanted, 65+ [...] encounter Miscellaneous Notes * Telephone Encounter - Elsy Newton RPh - 01/28/2024 8:50 AM EDTSigned Prescriptions: Disp Refills Apixaban 5 MG Oral Tablet (Eliquis) 180 Ta*1 Sig: Take 1 Tabletby mouth in the morning and 1 Tablet before bedtime.Authorizing Provider: BRITNEY DIAZ User: ELSY NEWTON documented in this encounter Plan of Treatment Upcoming Encounters Date Type Department Care Team (Late st Contact Info) Description 02/11/2024 4:15 PM EDT Imaging Radiology [facility] [address] [place] [address] 06/16/2024 1:20 PM EST Office Visit Family Practice [facility] [address] [place] [address] Britney Diaz MD [address] [place] [address] Scheduled Procedures Name Priority Associated Diagnoses Date/Ti me COLONOSCOPY FLEXIBLE PROXIMA L DIAGNOSTIC Recall Colon cancer screening Special screening for malignant neoplasms, colon Health Maintenance Due Date Last Done Comments COVID-19 Vaccine ( - 2022- season) 2023 DTaP,Tdap,and Td Vaccines (2 - Td or Tdap) 05/21/2023 05/21/2013, 07/02/2006 Depression Screening 2023 12/22/2022 Influenza Vaccine (FLU shot) (#1) 2024 06/11/2023, 04/28/2022, 04/25/2021, Additional history exists AAA Monitoring 06/26/2024 06/26/2023, 0907/2021, 12/22/2020, Additional history exists GFR 07/17/2024 01/15/2024, 06/01, 11/07/2022, Additional history exists Albumin/Creatinine Ratio 01/14/2025 024, 10/04/2017, 07/31/2016, Additional history exists CKD HGB USE SMARTSET 56425 01/14/202501/14, 11/07/2022, 11/07/2022, Additional history exists CKD PHOS USE SMARTSET 09461 01/14/202512/30, 11/07/2022, 04/25/2021, Additional history exists Pneumococcal [...] this encounter Medical Devices Implanted Type Area Class C Truck Driver Device Identifier Shelf Expiration Date Model / Serial / Lot Sut Steel 6 M654g - [id number] Implanted:Qty: 6 on 07/28/2013 at OR [facility] [place] N/A: Chest DO NOT USE 01/29/2018 M654G / / [id number] Marker Coronary [facility] - [id number] Implanted:Qty: 2 on 07/28/2013 at OR [facility] [place] N/A: Aorta [employer] 03/31/2016 [facility] / / [id number] documented as of this encounter Advance Directives * Full Code (Latest Code Status on File) Date Activated Date Inactivated Comments 07/28/2013 1:42 PM 08/03/2013 4:04 PM This order re flects the patients wishes and were consensually agreed upon. Care Teams Publishing Systems Analyst Relationship Specialty Start Date End Date Britney Diaz MD [address] [place] [address] PCP - General Family Medicine 10/22/20 documented as of this encounter
--- OUTSIDE RECORDS SUMMARY | 2024-06-27 22:51 | External Medical Summary | Summary of Care ---
Author Name Unknown Organization [facility] Address [address] [place] [facility] [place] [place] [address] Phone [phone] Care Team Providers Care Oem Sales Manager Name Role Phone Hipolito Coates MD Primary Care Provider [phone] Reason for Visit * Reason Onset Date Comments Medication Refill 01/08/2024 Encounter Details Date Type Department Care Team (Late st Contact Info) Description 01/08/2024 Refill Cardiology, [facility] [address] [place] [address] Spencer Newman, DO [address] [place] [address] S/P CABG x 4; RBBB (right bundle branch block); HTN, goal below 140/90; Bifascicular bundle branch block; Dyslipidemia, goal LDL below 70 Allergies No known active allergiesdocumented as of this encounter (statuses as of 01/08/2024) Medications Medication Sig Dispensed Refills Start Date [...] branch block,Dyslipidemia, goal LDL below 70 Take 0.5 Tablets by mouth in the morning. 45 Tablet 3 01/08/2024 Active Metoprolol Succinate ER 50 MG Oral Tablet Extended Release 24 Hour (toPROL XL)Indications:S/P CABG x 4,RBBB (right bundle branch block),HTN, goal below 140/90,Bifascicular bundle branch block,Dyslipidemia, goal LDL below 70 TAKE BY MOUTH 0.5 TABLETS IN THE MORNING. 45 Tablet 3 03/07/2023 01/08/2024 Discontinue d(Refill) documented as of this encounter (statuses as of 01/08/2024) Active Problems Problem Noted Date Diagnosed Date History of pulmonary embolism 10/24/2022 Sensorineural hearing loss (SNHL) of both ears 0 10/25/2021 Chronic kidney disease, stage 3b 12/14/2020 Overview: Per CKD protocol Bifascicular bundle branch block 08/22/2019 Coronary artery disease invo lving [place] coronary artery of [place] heart without angina pectoris 11/08/2015 Abdominal aortic aneurysm without rupture 2015 Overview: No intervention planned due to high risk of [place] and dialysis in the setting of elective surgery 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 Overview: Off pump coronary artery bypass times 4: NICOLE - LAD, Aorta - PDA - PM, Aorta - Int HTN, goal below 130/80 05/21/2013 Gastroesophageal reflux disease without esophagi tis 05/21/2013 Dyslipidemia 02/14/2010 Morbid obesity 02/14/2010 Overview: ICD-10 update of inactive term documented as of this encounter (statuses as of 01/08/2024) Resolved Problems Problem Noted Date Diagnosed Date [...] protocol #1 - BMI 45.0-49.9, adult 02/19/2017 08/18/2 018 Overview: Per Obesity protocol #1 - [...] as of this encounter (statuses as of 01/08/2024) Immunizations Name Administration Dates Next Due Diptheria/Tetanus [...] encounter Miscellaneous Notes * Telephone Encounter - Chidi Smith PA-C - 01/08/2024 4:03 PM EDT Signed Prescriptions: Disp Refills Metoprolol Succinate ER 50 MG Oral Tablet *45 Tab*3 Sig: Take 0.5 Tablets by mouth in the morning. Authorizing Provider: CHIDI SMITH * Telephone Encounter - Rosario Springer CMA - 01/08/2024 2:50 PM EDTPending Prescriptions: Disp Refills Metoprolol Succinate ER 50 MG Oral Tablet *45 Tab*3 Sig: Take 0.5 Tablets by mouth in the morning. * Telephone Encounter - Rosario Springer CMA - 01/08/2024 2:50 PM EDT Did you pend patient's preferred pharmacy and medication before forwarding?yes Pharmacy: [facility] Pending Prescriptions: Disp Refills Metoprolol Succinate ER 50 MG Oral Tablet*45 Tab*3 Sig: Take 0.5 Tablets by mouth in the morning. Last Visit: 08/07/2023 (in office), Visit date not found (telemedicine) Next Visit: Visit date not found If no future appointments scheduled, and last appointment is greater than a year ago, please schedule patient for a follow-up appointment Last date the medication was ordered: 03-07-2023 Is this request for a controlled substance?No Urine Drug Screen:No results found for this or any previous visit. Patient Phone Numbers Labs: Lab Results Component Value Date/Time CREAT 1.7 (H) 06/11/2023 03:46 PM CREAT 1.6 (H) 12/26/2019 09:47 AM POTASSIUM 5.1 06/11/2023 03:46 PM POTASSIUM 4.8 12/26/2019 09:47 AM TSH 2.72 10/25/2021 04:39 PM TSH 1.35 12/21/2014 04:53 PM LDLCALC 71 10/25/2021 04:39 PM LDLCALC 73 08/21/2019 08:17 AM LDLDIRECT 66 12/26/2019 09:47 AM LDLDIRECT 99 12/11/2018 08:41 AM ALT 33 10/22/2020 07:48 AM ALT 36 12/26/2019 09:47 AM HGBA1C 5.6 04/25/2021 04:20 PM HGBA1C 4.8 07/29/2013 03:45 AM documented in this encounter Plan of Treatment Upcoming Encounters Date Type Department Care Team (Late st Contact Info) Description 06/16/2024 1:20 PM EST Office Visit Family Practice [facility] [address] [place] [address] Hipolito Coates MD [address] [place] [address] Scheduled Procedures Name Priority Associated Diagnoses Date/Ti me COLONOSCOPY FLEXIBLE PROXIMA L DIAGNOSTIC Recall Colon cancer screening Special screening for malignant neoplasms, colon Health Maintenance Due Date Last Done Comments Albumin/Creatinine Ratio 10/04/2018 018, 07/31/2016, 07/05/2015, Additional history exists COVID-19 Vaccine ( - 2022- season) 2023 DTaP,Tdap,and Td Vaccines (2 - Td or Tdap) 05/21/2023 05/21/2013, 07/02/2006 CKD HGB USE SMARTSET 04823 11/08/202311/07, 11/07/2022, 10/25/2021, Additional history exists CKD PHOS USE SMARTSET 25011 11/08/2023 050 03/2023, 04/25/2021, 12/26/2019, Additional history exists GFR 12/11/2023 06/11/2023, 050 03/2023, 02/23/2022, Additional history exists Depression Screening [...] this encounter Medical Devices Implanted Type Area Microwave Engineer Device Identifier Shelf Expiration Date Model / Serial / Lot Sut Steel 6 M654g - [id number] Implanted:Qty: 6 on 07/28/2013 at OR [facility] [place] N/A: Chest DO NOT USE 01/29/2018 M654G / / [id number] Marker Coronary [facility] - [id number] Implanted:Qty: 2 on 07/28/2013 at OR [facility] [place] N/A: Aorta [employer] 03/31/2016 [facility] / / [id number] documented as of this encounter Visit Diagnoses Diagnosis S/P CABG x 4 Postsurgical aortocoronary bypass status RBBB (right bundle branch block) Right bundle branch block HTN, goal below 140/90 Unspecified essential hypertension Bifascicular bundle branch block Other bilateral bundle branch block Dyslipidemia, goal LDL below 70 Other and unspecified hyperlipidemia documented in this encounter Advance Directives * Full Code (Latest Code Status on File) Date Activated Date Inactivated Comments 07/28/2013 1:42 PM 08/03/2013 4:04 PM This order re flects the patients wishes and were consensually agreed upon. Care Teams Oem Sales Manager Relationship Specialty Start Date End Date Hipolito Coates MD [address] [place] [address] PCP - General Family Medicine 10/22/20 documented as of this encounter
[2024-06-28] MEDS: SODIUM CHLOR 7% 4 ML NEB NEB SCH (07:06)
[2024-06-28] MEDS: ADVANCED PROBIOTIC 625 MG CAPSULE PO SCH (08:50)
[2024-06-28] MEDS: CYANOCOBALAMIN (B-12) 500 MCG TABLET PO SCH (08:51)
[2024-06-28] MEDS: ROSUVASTATIN CALCIUM 20 MG TAB PO SCH (08:51)
[2024-06-28] MEDS: lisinopril 5 MG TAB PO SCH (08:51)
[2024-06-28] MEDS: ASPIRIN 81 MG ECTAB PO SCH (08:52)
[2024-06-28] MEDS: METOPROLOL SUCC 25MG EXT REL TAB PO SCH (08:52)
[2024-06-28] MEDS: PANTOprazole 40 MG TAB PO SCH (08:52)
[2024-06-28] MEDS: OSELTAMIVIR PHOSPHATE SUSP 30 MG/5 ML UDP PO SCH (08:53)
[2024-06-28 09:12] LABS: Hematocrit (blood only) 39.6 % (42.0-52.0); Hemoglobin 12.7 g/dl (14.0-18.0); Mean Corpuscular Hemoglobin 31.7 pg (25.0-34.0); Mean Corpuscular Hgb Conc 32.1 g/dL (32.0-36.0); Mean Corpuscular Volume 98.8 fL (80.0-100.0); Mean Platelet Volume 9.4 fL (9.4-12.4); Platelet Count 115 K/uL (130-400); RDW Coefficient of Variation 13.4 % (11.5-14.5); RDW Standard Deviation 48.8 fL (36.4-46.3); Red Blood Count 4.01 M/uL (4.70-6.10); White Blood Count 4.38 K/ul (4.8-10.8)
[2024-06-28 09:23] LABS: BUN Creatinine Ratio 12.6 (10-20); Calcium 8.6 mg/dl (8.6-10.3); Creatinine Clr Calc Pharmacy 43.4 ml/min; Potassium 4.4 mmol/L (3.5-5.1)
--- NOTE | 2024-06-28 10:09 | Electrocardiogram Report ---
Test Reason : Blood Pressure : */* mmHG Vent. Rate : 99 BPM Atrial Rate : 99 BPM P-R Int : 216 ms QRS Dur : 120 ms QT Int : 352 ms P-R-T Axes : 76 -32 45 degrees QTcB Int : 451 ms Sinus rhythm with 1st degree A-V block with Premature atrial complexes Left axis deviation Right bundle branch block Abnormal ECG When compared with ECG of 19-Sep-2022 05:33, Premature atrial complexes are now Present Confirmed by Yaima Porras (Neal) on 06/28/2024 10:08:52 AM Referred By: REFERRED SELF Confirmed By: Yaima Porras
--- NOTE | 2024-06-28 13:37 | Hospitalist Progress Note ---
Date of Service June 28, 2024 Assessment & Plan (1) Influenza A: (2) Weakness: (3) Ambulatory dysfunction: (4) CKD (chronic kidney disease), stage III: (5) History of pulmonary embolism: (6) Hypertension: (7) Hypercholesteremia: (8) CAD (coronary artery disease): (9) GERD (gastroesophageal reflux disease): (10) Obesity: Plan Patient is 78 year old male with PMHx significant for HTN, dyslipidemia, CKD III, CAD s/p CABG, RBBB, left anterior fascicular block, GERD, obesity, AAA, PE who presented to the ER with c/o cough, myalgias, chills and generalized weakness x 2 days. Acute Influenza A infection Acute hypoxic respiratory failure Pneumonia, likely viral In ER afebrile, P: 100, R: 20, BP 164/86, 93% on room air + Influenza A PCR on respiratory BioFire panel CXR: Stable patchy bilateral airspace disease right greater than left Procalcitonin: 0.1. No leukocytosis In ER given Tamiflu Isolation precautions Give 500 mL NSS bolus Continue Tamiflu, renally dosed Supplemental oxygen as needed Mucinex Incentive spirometry Generalized weakness likely secondary to underlying infection with influenza Fall precautions PT/OT eval Legionella ordered and pending Continue to monitor Chronic Anemia Hgb in 12-13 range Continue to monitor Thrombocytopenia Follow platelets CKD (chronic kidney disease), stage III: Cr: 1.8. (Baseline Cr: 1.7-1.9) Monitor renal function, avoid nephrotoxic agents when possible History of pulmonary embolism: Chronically anticoagulated on Eliquis Continue Eliquis Hypertension Initially hypertensive in ER with repeat SBP in 140s Continue lisinopril, metoprolol succinate Hypercholesteremia Continue rosuvastatin CAD (coronary artery disease) S/P CABG Denies CP, SOB No acute ST changes on EKG Continue aspirin, metoprolol, rosuvastatin GERD (gastroesophageal reflux disease) Continue PPI Obesity BMI: 39 Diet: HH DVT Prophylaxis: On Eliquis Dispo: PT/OT ordered for further recs Admission and Anticipated Discharge Date Admission Date: June 27, 2024 Subjective Pt was seen in the AM sitting in chair near bed States he is achy and fatigued Review of Systems Review of Systems: All systems reviewed & are unremarkable except as noted in Subjective Physical Exam Physical Exam: General: Alert, oriented. No acute distress Psych: Appropriate mood and affect HEENT: NC/AT CV: RRR Resp: Breath sounds decreased bilaterally, no increased effort of breathing. Abdomen:Soft, nontender Extremities: edema in lower extremities bilaterally. Results & Data Results & Data Vital Signs (Past 12 Hours) Vital Signs Temp Pulse Pulse Resp BP BP Pulse Ox 06/28/24 11:46 37 C 79 20 102/68 93 06/28/24 09:30 06/28/24 07:51 36.8 C 80 20 127/77 95 06/28/24 07:28 89 06/28/24 07:08 75 18 93 06/28/24 03:09 37.2 C 80 18 119/73 96 O2 Del Method O2 Flow Rate 06/28/24 11:46 Nasal Cannula 2 06/28/24 09:30 Nasal Cannula 2 06/28/24 07:51 Nasal Cannula 2 06/28/24 07:28 06/28/24 07:08 Nasal Cannula 2 06/28/24 03:09 Nasal Cannula 2 Diagnostic Findings Chest X-Ray 06/27/24 16:34 EXAM: Radiograph of the Chest 1 View INDICATION: Weakness. TECHNIQUE: Frontal view of the chest. COMPARISON: 09/17/2022 FINDINGS: Lungs and pleural spaces: Stable patchy basilar airspace disease right greater than left. No pleural effusion or pneumothorax. Heart: Stable prominent cardiac shadow. Mediastinum: Normal contour. Bones/joints: Metallic anchors in the right humerus. Soft tissues: No abnormality noted. No radiopaque foreign body noted. Upper abdomen: No abnormality noted. IMPRESSION: Stable patchy basilar airspace disease right greater than left. ACT 112: Negative or not required by law. Electronically signed by Shireen Gonzalez 06-27-2024 5:00 PM
[2024-06-28] MEDS: traMADol HCL 50 MG TABLET PO PRN (21:08)
[2024-06-29 04:57] LABS: Basophils # (auto) 0.03 K/uL (0.00-0.20); Basophils % (auto) 0.7 %; Eosinophils # (auto) 0.15 K/uL (0.00-0.50); Eosinophils % (auto) 3.5 %; Hematocrit (blood only) 36.8 % (42.0-52.0); Hemoglobin 11.9 g/dl (14.0-18.0); Immature Granulocytes # (auto) 0.01 K/uL (0.01-0.20); Immature Granulocytes % (auto) 0.2 %; Lymphocytes # (auto) 1.26 K/uL (1.20-3.40); Lymphocytes % (auto) 29.6 %; Mean Corpuscular Hemoglobin 31.6 pg (25.0-34.0); Mean Corpuscular Hgb Conc 32.3 g/dL (32.0-36.0); Mean Corpuscular Volume 97.9 fL (80.0-100.0); Mean Platelet Volume 9.2 fL (9.4-12.4); Monocytes # (auto) 0.53 K/uL (0.11-0.59); Monocytes % (auto) 12.5 %; Neutrophils # (auto) 2.27 K/uL (1.40-6.50); Neutrophils % (auto) 53.5 %; Platelet Count 102 K/uL (130-400); RDW Coefficient of Variation 13.5 % (11.5-14.5); RDW Standard Deviation 48.4 fL (36.4-46.3); Red Blood Count 3.76 M/uL (4.70-6.10); White Blood Count 4.25 K/ul (4.8-10.8)
[2024-06-29 05:09] LABS: BUN Creatinine Ratio 15.9 (10-20); Calcium 8.2 mg/dl (8.6-10.3); Creatinine Clr Calc Pharmacy 41.8 ml/min; Magnesium 1.9 mg/dl (1.7-2.4); Phosphorus 3.5 mg/dl (2.5-4.9); Potassium 4.7 mmol/L (3.5-5.1)
[2024-06-29 09:47] LABS: A calco-baum cmplx NotReported Not Detected (NotDetected); Bact fragilis Not Reported Not Detected (NotDetected); Blood Culture Id Panel See PCR Comment (NotDetected); C auris Not Reported Not Detected (NotDetected); Calbicans Not Reported Not Detected (NotDetected); Candida glabrata Not Reported Not Detected (NotDetected); Candida krusei Not Reported Not Detected (NotDetected); Cneoformans/gatti Not Reported Not Detected (NotDetected); Cparapsilosis Not Reported Not Detected (NotDetected); E cloacae compx Not Reported Not Detected (NotDetected); Efaecalis Not Reported Not Detected (NotDetected); Efaecium Not Reported Not Detected (NotDetected); Enterobacterales Not Reported Not Detected (NotDetected); Escherichia coli Not Reported Not Detected (NotDetected); H influenzae Not Reported Not Detected (NotDetected); K aerogenes Not Reported Not Detected (NotDetected); Koxytoca Not Reported Not Detected (NotDetected); Kpneumoniae grp Not Reported Not Detected (NotDetected); Lmonocyt Not Reported Not Detected (NotDetected); N meningitidis Not Reported Not Detected (NotDetected); P aeruginosa Not Reported Not Detected (NotDetected); Proteus spp Not Reported Not Detected (NotDetected); Salmonella spp Not Reported Not Detected (NotDetected); Staph lugdunensis Not Reported Not Detected (NotDetected); Staph spp. Not Reported DETECTED (NotDetected); Staphaureus Not Reported Not Detected (NotDetected); Staphepi Not Reported Not Detected (NotDetected); Stenmaltophilia Not Reported Not Detected (NotDetected); Strep agal(GrpB) Not Reported Not Detected (NotDetected); Strep pneum Not Reported Not Detected (NotDetected); Strep pyog (GrpA) Not Reported Not Detected (NotDetected); Strep spp Not Reported Not Detected (NotDetected)
[2024-06-29 10:38] LABS: Staphylococcus spp. DETECTED (NotDetected)
[2024-06-29] MEDS ORDERED: SODIUM CHLOR 7% 4 ML NEB NEB PRN (14:22)
--- NOTE | 2024-06-29 14:29 | Hospitalist Progress Note ---
Date of Service June 29, 2024 Assessment & Plan (1) Influenza A: (2) Weakness: (3) Ambulatory dysfunction: (4) CKD (chronic kidney disease), stage III: (5) History of pulmonary embolism: (6) Hypertension: (7) Hypercholesteremia: (8) CAD (coronary artery disease): (9) GERD (gastroesophageal reflux disease): (10) Obesity: Plan Patient is 78 year old male with PMHx significant for HTN, dyslipidemia, CKD III, CAD s/p CABG, RBBB, left anterior fascicular block, GERD, obesity, AAA, PE who presented to the ER with c/o cough, myalgias, chills and generalized weakness x 2 days. Acute Influenza A infection Acute hypoxic respiratory failure Pneumonia, likely viral In ER afebrile, P: 100, R: 20, BP 164/86, 93% on room air + Influenza A PCR on respiratory BioFire panel CXR: Stable patchy bilateral airspace disease right greater than left Procalcitonin: 0.1. No leukocytosis In ER given Tamiflu Isolation precautions Give 500 mL NSS bolus Continue Tamiflu, renally dosed Supplemental oxygen as needed Mucinex Incentive spirometry Generalized weakness likely secondary to underlying infection with influenza Fall precautions PT/OT eval Legionella ordered and pending Blood cx, 1/4 bottles growing gram positive cocci in clusters, likely c ontaminant Continue to monitor Chronic Anemia Hgb in 12-13 range Continue to monitor Thrombocytopenia Follow platelets CKD (chronic kidney disease), stage III: Cr: 1.8. (Baseline Cr: 1.7-1.9) Monitor renal function, avoid nephrotoxic agents when possible History of pulmonary embolism: Chronically anticoagulated on Eliquis Continue Eliquis Hypertension Initially hypertensive in ER with repeat SBP in 140s Continue lisinopril, metoprolol succinate Hypercholesteremia Continue rosuvastatin CAD (coronary artery disease) S/P CABG Denies CP, SOB No acute ST changes on EKG Continue aspirin, metoprolol, rosuvastatin GERD (gastroesophageal reflux disease) Continue PPI Obesity BMI: 39 Diet: HH DVT Prophylaxis: On Eliquis Dispo: PT/OT ordered for further recs Admission and Anticipated Discharge Date Admission Date: June 27, 2024 Subjective Pt was seen laying in bed States he is still achy and fatigued Review of Systems Review of Systems: All systems reviewed & are unremarkable except as noted in Subjective Physical Exam Physical Exam: General: Alert, oriented. No acute distress Psych: Appropriate mood and affect HEENT: NC/AT CV: RRR Resp: Breath sounds decreased bilaterally, no increased effort of breathing. Abdomen:Soft, nontender Extremities: edema in lower extremities bilaterally. Results & Data Results & Data Vital Signs (Past 12 Hours) Vital Signs Temp Pulse Pulse Resp BP Pulse Ox O2 Del Method 06/29/24 13:54 69 06/29/24 12:11 36.7 C 76 16 96/62 L 95 Nasal Cannula 06/29/24 08:59 Nasal Cannula 06/29/24 07:56 36.7 C 90 16 126/66 96 Nasal Cannula 06/29/24 07:06 90 18 96 Nasal Cannula 06/29/24 07:01 88 06/29/24 03:10 36.7 C 84 18 135/84 96 Nasal Cannula O2 Flow Rate 06/29/24 13:54 06/29/24 12:11 2 06/29/24 08:59 2 06/29/24 07:56 2 06/29/24 07:06 2 06/29/24 07:01 06/29/24 03:10 2
[2024-06-30 06:33] LABS: Basophils # (auto) 0.03 K/uL (0.00-0.20); Basophils % (auto) 0.7 %; Eosinophils # (auto) 0.38 K/uL (0.00-0.50); Eosinophils % (auto) 8.6 %; Hematocrit (blood only) 36.6 % (42.0-52.0); Hemoglobin 12.1 g/dl (14.0-18.0); Immature Granulocytes # (auto) 0.01 K/uL (0.01-0.20); Immature Granulocytes % (auto) 0.2 %; Lymphocytes # (auto) 1.19 K/uL (1.20-3.40); Lymphocytes % (auto) 26.9 %; Mean Corpuscular Hemoglobin 32.2 pg (25.0-34.0); Mean Corpuscular Hgb Conc 33.1 g/dL (32.0-36.0); Mean Corpuscular Volume 97.3 fL (80.0-100.0); Mean Platelet Volume 9.7 fL (9.4-12.4); Monocytes # (auto) 0.39 K/uL (0.11-0.59); Monocytes % (auto) 8.8 %; Neutrophils # (auto) 2.42 K/uL (1.40-6.50); Neutrophils % (auto) 54.8 %; Platelet Count 110 K/uL (130-400); RDW Coefficient of Variation 13.2 % (11.5-14.5); RDW Standard Deviation 47.2 fL (36.4-46.3); Red Blood Count 3.76 M/uL (4.70-6.10); White Blood Count 4.42 K/ul (4.8-10.8)
[2024-06-30 07:01] LABS: BUN Creatinine Ratio 16.9 (10-20); Calcium 8.5 mg/dl (8.6-10.3); Creatinine Clr Calc Pharmacy 49.5 ml/min; Magnesium 1.9 mg/dl (1.7-2.4); Phosphorus 3.6 mg/dl (2.5-4.9); Potassium 4.7 mmol/L (3.5-5.1)
[2024-06-30 08:10] VITALS: TEMP 97.7
--- NOTE | 2024-06-30 15:40 | Discharge Summary ---
Discharge Summary Date of Service June 30, 2024 Principal Dx & Hospital Course #1 = Principal Diagnosis (1) Influenza A: (2) Weakness: (3) Ambulatory dysfunction: (4) CKD (chronic kidney disease), stage III: (5) History of pulmonary embolism: (6) Hypertension: (7) Hypercholesteremia: (8) CAD (coronary artery disease): (9) GERD (gastroesophageal reflux disease): (10) Obesity: Plan Patient is 78 year old male with PMHx significant for HTN, dyslipidemia, CKD III, CAD s/p CABG, RBBB, left anterior fascicular block, GERD, obesity, AAA, PE who presented to the ER with c/o cough, myalgias, chills and generalized weak ness x 2 days. Found to have an influenza infection. Acute Influenza A infection Acute hypoxic respiratory failure Pneumonia, likely viral In ER afebrile, P: 100, R: 20, BP 164/86, 93% on room air + Influenza A PCR on respiratory BioFire panel CXR: Stable patchy bilateral airspace disease right greater than left Procalcitonin: 0.1. No leukocytosis In ER given Tamiflu Isolation precautions Given 500 mL NSS bolus Continued Tamiflu, renally dosed at 30mg BID, discharged with an additional 2.5 more days. Supplemental oxygen as needed. Pt was weaned successfully and had a 2 step where it was noted that he did NOT need oxygen for home use. Mucinex Incentive spirometry Generalized weakness likely secondary to underlying infection with influenza Fall precautions PT/OT evaluated and determined he was stable and safe for discharge home with family. Legionella pending at time of discharge Blood cx, 1/4 bottles grew staph hominis, contaminant On the day of discharge patient was seen by physical therapy who deemed him safe to return home without additional need of services. He no longer required oxygen and stated that he felt great and was anxious for discharge. Patient was discharged in stable condition to the care of his family. Close PCP follow-up recommended. Chronic Anemia Hgb in 12-13 range PCP follow up Thrombocytopenia Follow platelets PCP followup CKD (chronic kidney disease), stage III: Cr: 1.8. (Baseline Cr: 1.7-1.9) avoid nephrotoxic agents when possible Cr 1.6 on discharge History of pulmonary embolism: Chronically anticoagulated on Eliquis Continue Eliquis Hypertension Initially hypertensive in ER with repeat SBP in 140s Continue lisinopril, metoprolol succinate Normotensive on discharge Hypercholesteremia Continue rosuvastatin CAD (coronary artery disease) S/P CABG Denies CP, SOB No acute ST changes on EKG Continue aspirin, metoprolol, rosuvastatin GERD (gastroesophageal reflux disease) Continue PPI Obesity BMI: 39 PCP follow up Notes For Next Care Provider Medication Changes From Visit Tessalon pearls as needed for cough Mucinex scheduled for 5 more days Tamiflu 30 mg (dose adjusted for renal function) for 2-1/2 more days Admission HPI Per Admitting Provider Patient is 78 year old male with PMH HTN, dyslipidemia, CKD III, CAD s/p CABG, RBBB, left anterior fascicular block, GERD, obesity, AAA, PE presented to ER with c/o cough and generalized weakness x 2 days. History obtained from patient and patient's daughter. Reports 2 days ago started with fatigue, generalized weakness, cough, myalgias and chills. Patient states feels like he needs to cough stuff out however cough has been nonproductive. States highest home recorded temp was 99.5F. States today feeling weak and lightheaded with ambulating. Denies any known ill contacts. Reports had seasonal influenza vaccine. Denies diaphoresis, N/V/D/C, OSEGUERA, syncope, vision changes, neck pain, CP, SOB, palpitations, choking, abdominal pain, paresthesias, extremity edema, rashes, urinary symptoms. Admission Exam Per Admitting Provider General: no acute distress, obese elderly male Head: normocephalic, atraumatic Eyes: conjunctiva non-injected, anicteric ENT: +hard of hearing, normal inspection external ears, nose, mucous membranes mildly dry Neck: supple, trachea midline Lungs: no respiratory distress, +cough with deep inspiration and coarse breath sounds that clear with coughing CV: regular rhythm, rate 100, no murmur, no pretibial edema Abd: protuberant, normal BS, soft, non-tender Ext: no cyanosis, no calf tenderness Neuro: A&O x 3, no focal deficits noted, normal affect Skin: warm, dry Discharge Exam General: Alert, oriented. No acute distress Psych: Appropriate mood and affect HEENT: NC/AT CV: RRR Resp: Breath sounds decreased bilaterally, no increased effort of breathing. Abdomen:Soft, nontender Extremities: edema in lower extremities bilaterally. Updated Medication List Medication Instructions Recorded Confirmed Type lisinopril 5 mg tablet 5 mg PO QAM 06/25/19 06/27/24 History metoprolol succinate 50 mg 25 mg PO QAM 06/25/19 06/27/24 History tablet,extended release 24 hr omeprazole 20 mg capsule,delayed 20 mg PO QAM 06/25/19 06/27/24 History release rosuvastatin 40 mg tablet 40 mg PO QAM 06/25/19 06/27/24 History garlic 500 mg capsule 500 mg PO BID 12/23/19 06/27/24 History glucosamine sulfate 500 mg capsule 500 mg PO HS 12/23/19 06/27/24 History omega 9-ebi-suu-fish oil 1,000 mg 1 cap PO BID 12/23/19 06/27/24 History (120 mg-180 mg) capsule (Fish Oil) apixaban 5 mg tablet (Eliquis) 5 mg PO AMHS 09/17/22 06/27/24 History aspirin 81 mg tablet,delayed 81 mg PO DAILY 06/27/24 06/27/24 History release cyanocobalamin (vitamin B-12) 1,000 mcg PO DAILY 06/27/24 06/27/24 History 1,000 mcg tablet tramadol 50 mg tablet 50 mg PO Q6 PRN pain,severe 06/27/24 06/27/24 History benzonatate 200 mg capsule 200 mg PO TID PRN cough #30 caps 06/30/24 Rx guaifenesin 600 mg tablet, 600 mg PO Q12 #10 tabs 06/30/24 Rx extended release 12 hr (Mucinex) oseltamivir 30 mg capsule 30 mg PO BID #5 caps 06/30/24 Rx Hospital Stay Data Consultations 06/27/24 18:49 ED Decision to Admit Stat Diagnostic Imagining Performed Chest X-Ray 06/27/24 16:34 EXAM: Radiograph of the Chest 1 View INDICATION: Weakness. TECHNIQUE: Frontal view of the chest. COMPARISON: 09/17/2022 FINDINGS: Lungs and pleural spaces: Stable patchy basilar airspace disease right greater than left. No pleural effusion or pneumothorax. Heart: Stable prominent cardiac shadow. Mediastinum: Normal contour. Bones/joints: Metallic anchors in the right humerus. Soft tissues: No abnormality noted. No radiopaque foreign body noted. Upper abdomen: No abnormality noted. IMPRESSION: Stable patchy basilar airspace disease right greater than left. ACT 112: Negative or not required by law. Electronically signed by Shireen Gonzalez 06-27-2024 5:00 PM Pending Results Patient Have Any Pending Studies at Discharge: No Discharge Instructions Given to Patient (Per Discharging Provider) Thomas, You were admitted and treated for a flu infection. Please continue with two and a half more days of Tamiflu treatment at home. Can start taking that tonight. We also discharged you home with mucinex and as needed tessalon pearles to help with your congestion. Please take it as prescribed. You were evaluated and we determined that you did not need oxygen for home use. You were also seen by the physical therapist and they recommended that you are stable enough to go home with your family's support. Please keep close follow up with your primary care provider after discharge. Please do not hesitate to come back to the emergency room if your symptoms worsen or return. It was a pleasure taking care of you while you were here. Total Time Total Time Spent Total Time Spent (In Minutes): 60
[2024-06-30 15:59] VITALS: BP 96/58; PULSE 101; RESP 16; O2SAT 90
== END 2024-06-30 16:37 | disposition home or self-care (01) | DRG 193 ==
LOC: ED 16:23 → SUATTDRO 18:53 → 2W 18:53
DX: N18.30 Chronic kidney disease, stage 3 unspecified; J96.01 Acute respiratory failure with hypoxia; D64.9 Anemia, unspecified; I25.10 Atherosclerotic heart disease of native coronary artery without angina pectoris; E66.9 Obesity, unspecified; D69.6 Thrombocytopenia, unspecified; J10.00 Influenza due to other identified influenza virus with unspecified type of pneumonia; K21.9 Gastro-esophageal reflux disease without esophagitis; Z79.82 Long term (current) use of aspirin; E78.00 Pure hypercholesterolemia, unspecified; I12.9 Hypertensive chronic kidney disease with stage 1 through stage 4 chronic kidney disease, or unspecified chronic kidney disease; Z68.39 Body mass index [BMI] 39.0-39.9, adult; I45.10 Unspecified right bundle-branch block; Z95.1 Presence of aortocoronary bypass graft; Z79.899 Other long term (current) drug therapy; I44.4 Left anterior fascicular block